=== PATIENT | male | born 1940 | race Caucasian/White ===

== ENCOUNTER → 2018-02-10 | Outpatient (REF) | payer OTHER ==
[2018-02-10 12:08] LABS: HEMATOCRIT 44.3 % (42.0-52.0); HEMOGLOBIN 14.9 g/dl (13.5-17.5); MEAN CORPUSCULAR HEMOGLOBIN 32.5 pg (27.0-33.0); MEAN CORPUSCULAR HGB CONC 33.6 g/dl (32.0-36.5); MEAN CORPUSCULAR VOLUME 96.5 fl (80.0-96.0); PLATELET COUNT, AUTOMATED 192 10^3/uL (150-450); RED BLOOD COUNT 4.59 10^6/uL (4.30-6.10); RED CELL DISTRIBUTION WIDTH 13.6 % (11.5-14.5); WHITE BLOOD COUNT 6.9 10^3/uL (4.0-10.0)
[2018-02-10 12:50] LABS: ALBUMIN 4.1 GM/DL (3.2-5.2); ALBUMIN/GLOBULIN RATIO 1.58 (1.00-1.93); ALKALINE PHOSPHATASE 104 U/L (45-117); ALT/SGPT 20 U/L (12-78); ANION GAP 6 MEQ/L (8-16); AST/SGOT 21 U/L (7-37); BILIRUBIN,TOTAL 0.5 MG/DL (0.2-1.0); BLOOD UREA NITROGEN 23 MG/DL (7-18); CARBON DIOXIDE LEVEL 29 MEQ/L (21-32); CHLORIDE LEVEL 105 MEQ/L (98-107); CHOLESTEROL LEVEL 170 MG/DL (<200); CHOLESTEROL RISK RATIO 4.722 (<5); CREATININE FOR GFR 0.95 MG/DL (0.70-1.30); FREE T4 1.12 NG/DL (0.76-1.46); GLOMERULAR FILTRATION RATE > 60.0 (>42); GLUCOSE, FASTING 104 MG/DL (70-100); HDL CHOLESTEROL 36 MG/DL (>40); LDL CHOLESTEROL 108 MG/DL (<100); NON-HDL-C 134 MG/DL; POTASSIUM SERUM 4.5 MEQ/L (3.5-5.1); SODIUM LEVEL 140 MEQ/L (136-145); TOTAL PROTEIN 6.7 GM/DL (6.4-8.2); TRIGLYCERIDES LEVEL 129 MG/DL (<150)
[2018-02-10 13:40] LABS: MAU/CREAT RATIO 58.5 MCG/MG (0.0-30.0)
== END ==
LOC: M SFHCPLAZ 08:29
DX: I10 Essential (primary) hypertension (principal); Z13.220 Encounter for screening for lipoid disorders
CPT/HCPCS: 84443

== ENCOUNTER → 2018-04-28 | Outpatient (CLI) | payer MEDICARE ==
--- NOTE | 2018-04-28 08:48 | REP ---
Clinical: Hypertension and chronic medical renal disease. Evaluate for renal artery stenosis. Technique: Chavez scale and color Doppler evaluation of the kidneys and renal vasculature using curved array transducer. Findings: The kidneys are essentially normal in contour size and echogenicity and reniform shape without hydronephrosis, nephrolithiasis, cystic or renal mass lesion. Right kidney measures 12.3 x 6.3 x 5.9 cm . Left kidney measures 12.5 x 5.6 x 5.9 cm with 3.5 cm peripelvic and 1.2 cm mid/upper pole simple cysts. Bladder wall is diffusely thickened and irregular suggesting the possibility of chronic outlet obstruction. Correlation with urology and cystoscopy may be warranted. Color Doppler evaluation of the renal vasculature is significantly limited due to interposed bowel gas and the bilateral renal arteries are incompletely evaluated. Renal velocities could only be obtained approaching the hilum and within the kidney. No definite sonographic evidence for renal arterial stenosis noted. Renal vein is patent. Right Kidney: Peak arterial velocity: 163.0 cm/sec . Renal aortic ratio: 2.2 . Resistive indices: 0.67 - 0.71 . Acceleration times: 0.03 - 0.04 . Left kidney: Peak arterial velocity: 131.0 cm/sec . Renal aortic ratio: 1.8 . Resistive indices: 0.63 - 0.66 . Acceleration times: 0.02 - 0.04 . Impression: 1. Kidneys appear relatively age-appropriate and without hydronephrosis. Two left renal cysts are identified as described above. 2. Bladder demonstrates irregular nodular wall thickening which may be related to chronic outlet obstruction. Correlation with urology and cystoscopy may be warranted. 3. Limited evaluation of the renal vasculature due to interposed bowel gas. No definite evidence to suggest renal arterial stenosis. Electronically Signed by Justin Marquis MD 04/28/2018 08:39 A
== END ==
LOC: M RAD 06:41
PROVIDERS: ATTEND Physician Assistant
DX: I70.1 Atherosclerosis of renal artery (principal); N28.1 Cyst of kidney, acquired; R93.41 Abnormal radiologic findings on diagnostic imaging of renal pelvis, ureter, or bladder

== ENCOUNTER → 2018-05-03 | Outpatient (REF) | payer MEDICARE ==
[2018-05-03 13:52] LABS: AMORPHOUS SEDIMENT SMALL (NEGATIVE); APPEARANCE, URINE CLEAR (CLEAR); BACTERIA, URINE AUTO NEGATIVE (NEGATIVE); BILIRUBIN, URINE AUTO NEGATIVE (NEGATIVE); BLOOD, URINE BLOOD NEGATIVE (NEGATIVE); COLOR, URINE AMBER (YELLOW); GLUCOSE, URINE (UA) AUTO NEGATIVE (NEGATIVE); GRANULAR CAST, URINE AUTO 1 /LPF; KETONE, URINE AUTO TRACE mg/dL (NEGATIVE); LEUKOCYTE ESTERASE, URINE AUTO NEGATIVE (NEGATIVE); MUCUS, URINE SMALL (NEGATIVE); NITRITE, URINE AUTO NEGATIVE (NEGATIVE); PROTEIN, URINE AUTO NEGATIVE (NEGATIVE); RBC, URINE AUTO 2 /HPF (0-3); SPECIFIC GRAVITY URINE AUTO 1.029 (1.002-1.035); SQUAMOUS EPITHELIAL CELL UR AU 0 /HPF (0-6); URIC ACID CRYSTALS SMALL; WBC, URINE AUTO 3 /HPF (0-3)
== END ==
LOC: M SMT 13:00
PROVIDERS: ATTEND Nurse Practitioner Women's Health
DX: N32.89 Other specified disorders of bladder (principal)

== ENCOUNTER → 2018-05-11 | Outpatient (CLI) | payer MEDICARE | LOC: M WUC 10:18 | PROVIDERS: ATTEND Nurse Practitioner Women's Health | DX: Z12.5 Encounter for screening for malignant neoplasm of prostate (principal) | CPT/HCPCS: 36415; G0103 ==

== ENCOUNTER → 2018-06-05 | Outpatient (REF) | payer BC | LOC: M SFHCPLAZ 16:56 | PROVIDERS: ATTEND Dermatology | DX: D48.3 Neoplasm of uncertain behavior of retroperitoneum (principal) ==

== ENCOUNTER → 2018-06-29 | Outpatient (REF) | payer MEDICARE, OTHER ==
[2018-06-29 14:05] LABS: CREATININE, URINE 72.1 MG/DL; MAU/CREAT RATIO 159.5 MCG/MG (0.0-30.0)
[2018-06-29 14:13] LABS: ALBUMIN 3.6 GM/DL (3.2-5.2); ALT/SGPT 26 U/L (12-78); BILIRUBIN,TOTAL 0.5 MG/DL (0.2-1.0); BLOOD UREA NITROGEN 21 MG/DL (7-18); CALCIUM LEVEL 8.5 MG/DL (8.8-10.2); CARBON DIOXIDE LEVEL 29 MEQ/L (21-32); CHLORIDE LEVEL 107 MEQ/L (98-107); CHOLESTEROL LEVEL 112 MG/DL (<200); CHOLESTEROL RISK RATIO 3.111 (<5); CREATININE FOR GFR 0.79 MG/DL (0.70-1.30); GLOMERULAR FILTRATION RATE > 60.0 (>42); GLUCOSE, FASTING 84 MG/DL (70-100); HDL CHOLESTEROL 36 MG/DL (>40); LDL CHOLESTEROL 63 MG/DL (<100); NON-HDL-C 76 MG/DL; POTASSIUM SERUM 4.5 MEQ/L (3.5-5.1); SODIUM LEVEL 141 MEQ/L (136-145); TOTAL PROTEIN 6.9 GM/DL (6.4-8.2); TRIGLYCERIDES LEVEL 65 MG/DL (<150)
== END ==
LOC: M SFHCPLAZ 09:03
PROVIDERS: ATTEND Physician Assistant
DX: E78.5 Hyperlipidemia, unspecified (principal); I10 Essential (primary) hypertension

== ENCOUNTER → 2018-07-31 | Outpatient (CLI) | payer MEDICARE ==
--- NOTE | 2018-07-31 11:23 | REP ---
REASON: Knee pain. AP and lateral views were obtained. Two views cannot rule out a fracture. A trauma series consists of four views. Two limited views show tricompartmental osteophytosis with medial and lateral femoral calcifications. Calcifications are also seen in the proximal medial collateral ligament region. IMPRESSION: Chronic changes as described above. Electronically Signed by Charan Hunter DO 07/31/2018 12:57 P
== END ==
LOC: M RAD 10:09
PROVIDERS: ATTEND Family Medicine
DX: M25.762 Osteophyte, left knee (principal); M25.562 Pain in left knee

== ENCOUNTER → 2018-09-30 | Outpatient (CLI) | payer MEDICARE ==
[~2018-09-30] MED LIST: AMLO10TA PO; ASPI81TA85 PO; ATOR1TAB21 PO; FINA5TAB2 PO; FLOM0.4C39 PO; GABA-1171 PO; NAPR-885 PO; OMEP-218 PO; VERA180T3 PO; VIAG100T PO; VOLT1GEL15 TOP
--- NOTE | 2018-09-30 16:33 | REP ---
Clinical: Shortness of breath. Technique: PA and lateral. Comparison: None. Findings: Very subtle nodular focus incompletely evaluated at the left base cannot be excluded. Remainder of lung winters are clear. No effusion. No pneumothorax. Mediastinum and cardiac silhouette normal. Skeletal structures intact. Impression: Cannot exclude very subtle left basilar nodular density. Consider chest CT for further investigation. Electronically Signed by Justin Marquis MD 09/30/2018 04:25 P
== END ==
LOC: M RAD 16:08
PROVIDERS: ATTEND Family Medicine
DX: R91.8 Other nonspecific abnormal finding of lung field (principal); R06.02 Shortness of breath

== ENCOUNTER 2018-10-05 13:50 | Observation (INO) | payer MEDICARE ==
[~2018-10-05] VITALS: Ht 175.3 cm; Wt 105.2 kg
[2018-10-05 14:21] LABS: BASO % 0.6 % (0.0-1.0); EOS # 0.2 10^3/uL (0.0-0.50); EOS % 3.1 % (0.0-3.0); HEMATOCRIT 43.3 % (42.0-52.0); HEMOGLOBIN 14.5 g/dl (13.5-17.5); LYMPH # 1.8 10^3/uL (1.5-4.5); LYMPH % 28.5 % (24.0-44.0); MEAN CORPUSCULAR HEMOGLOBIN 32.7 pg (27.0-33.0); MEAN CORPUSCULAR HGB CONC 33.5 g/dl (32.0-36.5); MEAN CORPUSCULAR VOLUME 97.7 fl (80.0-96.0); MONO # 0.5 10^3/uL (0.0-0.8); MONO % 7.8 % (0.0-5.0); NEUTROPHILS # 3.8 10^3/uL (1.8-7.7); NEUTROPHILS % 59.7 % (36.0-66.0); PLATELET COUNT, AUTOMATED 168 10^3/uL (150-450); RED BLOOD COUNT 4.43 10^6/uL (4.30-6.10); WHITE BLOOD COUNT 6.4 10^3/uL (4.0-10.0)
[2018-10-05 14:52] LABS: ALBUMIN 3.9 GM/DL (3.2-5.2); ALT/SGPT 25 U/L (12-78); BILIRUBIN,DIRECT 0.2 MG/DL (0.0-0.2); BILIRUBIN,TOTAL 0.5 MG/DL (0.2-1.0); BLOOD UREA NITROGEN 21 MG/DL (7-18); CALCIUM LEVEL 8.9 MG/DL (8.8-10.2); CARBON DIOXIDE LEVEL 31 MEQ/L (21-32); CHLORIDE LEVEL 108 MEQ/L (98-107); CK-MB VALUE MASS 2.9 NG/ML (<3.6); CPK CREATINE PHOSPHOKINASE 125 U/L (39-308); CREATININE FOR GFR 0.86 MG/DL (0.70-1.30); GLOMERULAR FILTRATION RATE > 60.0 (>42); GLUCOSE, FASTING 95 MG/DL (70-100); LIPASE 106 U/L (73-393); MB/CK RELATIVE INDEX 2.32 (< OR =4); POTASSIUM SERUM 4.1 MEQ/L (3.5-5.1); SODIUM LEVEL 143 MEQ/L (136-145); THYROID STIMULATING HORMONE 0.659 uIU/ML (0.358-3.740); TOTAL PROTEIN 6.7 GM/DL (6.4-8.2); TROPONIN I < 0.02 NG/ML (< 0.10)
[2018-10-05] MEDS ORDERED: ISOVUE-370 76% 100ML VIAL (Q9967) As Ordered ONE (15:23)
[2018-10-05] MEDS ORDERED: ONDANSETRON 4MG/2ML VIAL (J2405) IV ONE (15:30)
--- NOTE | 2018-10-05 15:39 | REP ---
CHEST, PORTABLE: AP portable view of the chest is performed and compared with a prior study of 09/29/2018. There is poor ventilation with mild bibasilar linear fibroatelectatic change. No new infiltrate is seen. Cardiomediastinal silhouette appears magnified with the cardiac silhouette appearing prominent likely due to technical factors. There is calcification of the thoracic aorta. The mediastinal silhouette is unchanged. IMPRESSION: Mild stable bibasilar fibroatelectatic change without acute infiltrate. Electronically Signed by Abdelrahman Chavez MD 10/06/2018 09:26 A
[2018-10-05] MEDS: MORPHINE 2 MG/ML 1ML SYRINGE (J2270) IV PRN ×2 (16:10→17:34)
--- NOTE | 2018-10-05 16:39 | REP ---
CT ANGIO CHEST: TECHNIQUE: Axial contrast enhanced images from the thoracic inlet to the upper abdomen using 100 mL Isovue 370 intravenous contrast material with multiplanar reformations. There is no CT evidence of pulmonary embolism. There is no thoracic aortic aneurysm or dissection with mild atherosclerotic calcifications noted. The heart is mildly enlarged. There is no mediastinal, hilar or chest wall lymphadenopathy. There is no pleural or pericardial effusion. There are mild bibasilar fibroatelectatic changes. There are degenerative changes of the spine. Prominent left lobe of the thyroid is again seen unchanged since prior CT of cervical spine in 2010. IMPRESSION: No CT evidence of pulmonary embolism or aortic dissection. Mild cardiomegaly. Mild bibasilar fibroatelectatic change. Electronically Signed by Abdelrahman Chavez MD 10/06/2018 09:31 A
--- NOTE | 2018-10-05 17:09 | REP ---
HISTORY: Pain and swelling. TECHNIQUE: Multiple ultrasonographic images of the deep venous structures of the bilateral thighs were obtained from the common femoral vein to the popliteal vein along with Doppler interrogation and color flow Doppler images. FINDINGS: There is no abnormal echogenic material seen within any of the visualized deep venous structures that would suggest acute thrombosis. Coaptation is unremarkable throughout. Doppler interrogation shows an expected response to respiratory variability and augmentation. The color flow images show what appears to be a normal vascular pattern throughout. IMPRESSION: There is no ultrasonographic evidence of deep venous thrombosis involving any of the visualized deep venous structures of the bilateral thighs, as described above. Electronically Signed by Charan Hunter DO 10/06/2018 10:29 A
[2018-10-05] MEDS ORDERED: VIAG100T PO (17:19)
[2018-10-05] MEDS ORDERED: NAPR-885 PO (17:19)
[2018-10-05] MEDS ORDERED: ASPI81TA85 PO (17:19)
[2018-10-05] MEDS ORDERED: FLOM0.4C39 PO (17:19)
[2018-10-05] MEDS ORDERED: GABA-1171 PO (17:19)
[2018-10-05] MEDS ORDERED: FINA5TAB2 PO (17:19)
[2018-10-05] MEDS ORDERED: OMEP-218 PO (17:19)
[2018-10-05] MEDS ORDERED: VERA180T3 PO (17:19)
[2018-10-05] MEDS ORDERED: ATOR1TAB21 PO (17:19)
[2018-10-05] MEDS ORDERED: VOLT1GEL15 TOP (17:19)
[2018-10-05] MEDS ORDERED: ACETAMINOPHEN TAB 650MG DOSE (2X325MG) PO PRN (18:15)
[2018-10-05] MEDS ORDERED: ONDANSETRON 4MG/2ML VIAL (J2405) IV PRN (18:15)
[2018-10-05] MEDS ORDERED: LIDOCAINE 5% (LIDODERM) PATCH TD ONE (18:15)
--- NOTE | 2018-10-05 18:31 | HPEPDOC ---
General Date of Admission Oct 05, 2018 at 13:51 Date of Service: Oct 05, 2018 Chief Complaint The patient is a 78-year-old male admitted with a reason for visit of Dyspnea. History of Present Illness 78-year-old male with past medical history of hypertension, GERD, BPH, erectile dysfunction, dyslipidemia presented to the ER with a chief complaint of left upper back pain radiating to the chest with associated shortness of breath. The patient states that his pain has been persistent over the last few weeks, and is associated with shortness of breath when he takes a deep breath. He denies any lightheadedness, dizziness, palpitations, abdominal pain, or any nausea/vomiting/diarrhea. He also denies any history of coronary artery disease. He does state that he [place], and his pain has been evident ever since. In the ER, an EKG revealed no acute ST changes. Initial troponin markers negative. A chest x-ray and CT angiogram of the chest revealed no acute findings. The patient is noted to be breathing 99% on room air, however does appear short of breath when conversing. He will be admitted to the hospitalist service for further evaluation. Home Medications Scheduled Aspirin (Aspir 81) 81 Mg Tablet.dr, 81 MG PO DAILY, (Reported) Atorvastatin Calcium (Atorvastatin Calcium) 20 Mg Tablet, 20 MG PO DAILY, (Reported) Diclofenac Sodium (Voltaren) 100 Gm Gel..gram., 2 GRAM TOP BID, (Reported) APPLY TO LEFT KNEE Finasteride (Finasteride) 5 Mg Tablet, 5 MG PO DAILY, (Reported) Gabapentin (Gabapentin) 100 Mg Capsule, 100 MG PO TID, (Reported) Omeprazole (Omeprazole) 20 Mg Capsule.dr, 20 MG PO DAILY, (Reported) Tamsulosin HCl (Flomax) 0.4 Mg Capsule, 0.4 MG PO DAILY, (Reported) Verapamil HCl (Verapamil ER) 180 Mg Tablet.er, 180 MG PO DAILY, (Reported) Scheduled PRN Naproxen (Naproxen) 500 Mg Tablet, 500 MG PO Q12H PRN for PAIN, (Reported) Sildenafil Citrate (Viagra) 100 Mg Tablet, 100 MG PO for ERECTILE DYSFUNCTION, (Reported) Allergies Coded Allergies: Sulfa (Sulfonamide Antibiotics) (Verified Allergy, Mild, rash, 10/05/18) Past Medical History Medical History As noted in HPI Surgical History LEFT KNEE REPLACED 2017 CARPAL TUNNEL BILATERAL 2000 DISC INFUSION 2002 ROTATOR CUFF RIGHT 2000 CYSTOSCOPY 04/2018 MOHS ON LEFT HELIX 2016 Social History * Smoker: Denies Alcohol: occationally Drugs: marijuana (occasionally smokes marijuana a few times a week) Review of Systems Other systems 10 point review of systems negative unless otherwise specified in HPI. Physical Examination General Exam: Positive: Alert, Cooperative, No Acute Distress ENT Exam: Positive: Atraumatic, Mucous membr. moist/pink Neck Exam: Negative: JVD Chest Exam: Positive: Clear to auscultation, Normal air movement Heart Exam: Positive: Rate Normal, Normal S1, Normal S2 Abdomen Exam: Positive: Soft; Negative: Tenderness Extremity Exam: Negative: Tenderness, Swelling Psych Exam: Positive: Oriented x 3 Other physical findings Left upper back noted to be tender to palpation in the musculoskeletal region medial to the scapula in the trapezius muscle area. Vital Signs Vital Signs Date Time Temp Pulse Resp B/P (MAP) Pulse Ox O2 Delivery O2 Flow Rate FiO2 10/05/18 17:45 62 18 173/82 (112) 95 Room Air 10/05/18 13:51 96.3 Laboratory Data Labs 24H Laboratory Tests 2 10/05/18 13:55: Immature Granulocyte % (Auto) 0.3, White Blood Count 6.4, Red Blood Count 4.43, Hemoglobin 14.5, Hematocrit 43.3, Mean Corpuscular Volume 97.7H, Mean Corpuscular Hemoglobin 32.7, Mean Corpuscular Hemoglobin Concent 33.5, Red Cell Distribution Width 14.2, Platelet Count 168, Neutrophils (%) (Auto) 59.7, Lymphocytes (%) (Auto) 28.5, Monocytes (%) (Auto) 7.8H, Eosinophils (%) (Auto) 3.1H, Basophils (%) (Auto) 0.6, Neutrophils # (Auto) 3.8, Lymphocytes # (Auto) 1.8, Monocytes # (Auto) 0.5, Eosinophils # (Auto) 0.2, Basophils # (Auto) 0.0, Nucleated Red Blood Cells % (auto) 0.0, Anion Gap 4L, Glomerular Filtration Rate > 60.0, Calcium Level 8.9, Aspartate Amino Transf (AST/SGOT) 24, Alanine Aminotransferase (ALT/SGPT) 25, Alkaline Phosphatase 89, Total Bilirubin 0.5, Direct Bilirubin 0.2, Total Creatine Kinase 125, Creatine Kinase MB 2.9, Creatine Kinase MB Relative Index 2.32, Troponin I < 0.02, Total Protein 6.7, Albumin 3.9, Albumin/Globulin Ratio 1.39, Lipase 106, Thyroid Stimulating Hormone (TSH) 0.659, Free Thyroxine 1.20 10/05/18 17:47: POC pH (Misc Panel) 7.369, POC Base Excess (Misc Panel) 2.0, POC Saturated Percent O2 (Misc) 93L, POC pO2 (Misc Panel) 70.0L, POC pCO2 (Misc Panel) 47.2H, POC HCO3 (Misc Panel) 27.3H, POC Total CO2 (Misc Panel) 29.0H CBC/BMP Laboratory Tests 10/05/18 13:55 Red Blood Count 4.43, Mean Corpuscular Volume 97.7 H, Mean Corpuscular Hemoglobin 32.7, Mean Corpuscular Hemoglobin Concent 33.5, Red Cell Distribution Width 14.2, Neutrophils (%) (Auto) 59.7, Lymphocytes (%) (Auto) 28.5, Monocytes (%) (Auto) 7.8 H, Eosinophils (%) (Auto) 3.1 H, Basophils (%) (Auto) 0.6, Neutrophils # (Auto) 3.8, Lymphocytes # (Auto) 1.8, Monocytes # (Auto) 0.5, Eosinophils # (Auto) 0.2, Basophils # (Auto) 0.0 Plan / VTE VTE Prophylaxis Ordered?: Yes Plan Plan Shortness of Breath possibly 2/2 Musculoskeletal Chest Pain CXR and CTA Chest negative EKG with no acute ST changes, initial troponin negative, we will serially monitor cardiac markers 2D ECHO ordered Monitor on Telemetry Lidocaine patch ordered for the upper back PT ordered for functional optimization We will cont to monitor Dyslipidemia Continue statin History of CVA Aspirin and statin BPH Finasteride, Flomax GERD Continue PPI DVT prophylaxis Lovenox subcutaneous INDIGO MARIE MD Oct 05, 2018 18:31
[2018-10-05] MEDS: GABAPENTIN 100 MG CAP PO SCH (20:29)
[2018-10-05 21:00] LABS: CK-MB VALUE MASS 2.4 NG/ML (<3.6); CPK CREATINE PHOSPHOKINASE 105 U/L (39-308); MB/CK RELATIVE INDEX 2.29 (< OR =4); TROPONIN I < 0.02 NG/ML (< 0.10)
[2018-10-06] VITALS (10 sets, daily range): BP systolic 135–145; BP diastolic 66–76; O2SAT 91–97
[2018-10-06 06:55] LABS: HEMATOCRIT 41.5 % (42.0-52.0); HEMOGLOBIN 13.3 g/dl (13.5-17.5); MEAN CORPUSCULAR HEMOGLOBIN 31.6 pg (27.0-33.0); MEAN CORPUSCULAR VOLUME 98.6 fl (80.0-96.0); PLATELET COUNT, AUTOMATED 168 10^3/uL (150-450); RED BLOOD COUNT 4.21 10^6/uL (4.30-6.10); WHITE BLOOD COUNT 9.4 10^3/uL (4.0-10.0)
[2018-10-06] MEDS ORDERED: **NOTE PATIENT COMMENT** MISC XX SCH (07:00)
[2018-10-06 07:22] LABS: BLOOD UREA NITROGEN 21 MG/DL (7-18); CALCIUM LEVEL 8.7 MG/DL (8.8-10.2); CARBON DIOXIDE LEVEL 33 MEQ/L (21-32); CHLORIDE LEVEL 106 MEQ/L (98-107); CK-MB VALUE MASS 2.3 NG/ML (<3.6); CPK CREATINE PHOSPHOKINASE 68 U/L (39-308); CREATININE FOR GFR 0.87 MG/DL (0.70-1.30); GLOMERULAR FILTRATION RATE > 60.0 (>42); GLUCOSE, FASTING 95 MG/DL (70-100); MAGNESIUM LEVEL 2.2 MG/DL (1.8-2.4); MB/CK RELATIVE INDEX 3.38 (< OR =4); POTASSIUM SERUM 4.4 MEQ/L (3.5-5.1); SODIUM LEVEL 141 MEQ/L (136-145); TROPONIN I < 0.02 NG/ML (< 0.10)
[2018-10-06] MEDS: ASPIRIN 81 MG ENTERIC TAB PO SCH (07:44)
[2018-10-06] MEDS: ATORVASTATIN 20 MG TAB PO SCH (07:44)
[2018-10-06] MEDS: TAMSULOSIN 0.4 MG CAP PO SCH (07:44)
[2018-10-06] MEDS: GABAPENTIN 100 MG CAP PO SCH ×3 (07:44→21:00)
[2018-10-06] MEDS: FINASTERIDE 5 MG TAB PO SCH (07:45)
[2018-10-06] MEDS: ENOXAPARIN 40 MG/0.4 ML SYRINGE (J1650) SC SCH (07:45)
[2018-10-06] MEDS: OMEPRAZOLE 20 MG CAP PO SCH (07:45)
[2018-10-06] MEDS: oxyCODONE 5MG TAB PO PRN (12:16)
[2018-10-06] MEDS: VERAPAMIL 120 MG SR TAB PO SCH (13:44)
[2018-10-06 16:24] LABS: CK-MB VALUE MASS 2.7 NG/ML (<3.6); CPK CREATINE PHOSPHOKINASE 74 U/L (39-308); MB/CK RELATIVE INDEX 3.65 (< OR =4); TROPONIN I < 0.02 NG/ML (< 0.10)
--- NOTE | 2018-10-06 21:01 | ECHO ---
DATE OF PROCEDURE: 10/06/2018 DATE OF : 1940 AGE: 78 REFERRING PROVIDER: Dr. Jasen Carvajal PATIENT LOCATION: Emergency Department (ED)/Emergency Room REASON FOR THE STUDY: Chest pain. 2D MEASUREMENTS: IVS: 1.2 cm LV: 4.7 cm LVPW: 1.2 cm LA: 3.7 cm Aorta: 3.9 cm RV: 4.0 cm DOPPLER MEASUREMENTS: Peak velocity across the aortic valve: 1.5 m/s Peak velocity across the LVOT: 0.94 m/s Peak gradient across the aortic valve: 9 mmHg Mitral E: 0.49, Mitral A: 0.70 with a ratio of 0.7 Maximum tricuspid valve velocity: 3.0 m/s 2D COMMENTS: 1. Normal left ventricular size, wall thickness, and normal global left ventricular systolic function. The estimated left ventricular systolic ejection fraction is 60-65%. 2. Normal left atrium. Normal right atrium and right ventricle. 3. The atrial septum appeared to be normal without evidence of defect or shunt. 4. Normal aortic root. 5. A trace to small pericardial effusion was noted around the heart, no evidence of cardiac tamponade. 6. Mildly calcified aortic valve with normal leaflet excursion. Mildly calcified mitral annulus with normal anterior mitral valve leaflet motion. Normal tricuspid valve and pulmonic valve. The proximal pulmonary artery branches were not well visualized. 7. The inferior vena cava appeared to be normal in size subjectively. DOPPLER: It detects trace mitral regurgitation, mild tricuspid regurgitation and mild pulmonic regurgitation. The calculated pulmonary artery systolic pressure varies between 30-35 mmHg. Abnormal relaxation pattern was noted across the mitral valve leaflets as well as the mitral valve annulus consistent with features of grade 1 left ventricular diastolic dysfunction. IMPRESSION: 1. Normal global left ventricular systolic function. There were some features of grade 1 left ventricular diastolic dysfunction manifested by abnormal relaxation. 2. Aortic valve sclerosis with trivial aortic stenosis but no aortic regurgitation. 3. Mitral annulus calcification with trace mitral regurgitation. 4. Mild tricuspid regurgitation with mild pulmonary hypertension. 5. Mild pulmonic regurgitation. 6. Trace to small pericardial effusion noted, no evidence of cardiac tamponade. MTDD
[2018-10-07] VITALS (13 sets, daily range): BP systolic 122–184; BP diastolic 65–100; O2SAT 91–98
[2018-10-07 05:54] LABS: HEMATOCRIT 42.5 % (42.0-52.0); HEMOGLOBIN 13.6 g/dl (13.5-17.5); MEAN CORPUSCULAR HEMOGLOBIN 32.5 pg (27.0-33.0); MEAN CORPUSCULAR VOLUME 101.4 fl (80.0-96.0); PLATELET COUNT, AUTOMATED 163 10^3/uL (150-450); RED BLOOD COUNT 4.19 10^6/uL (4.30-6.10); WHITE BLOOD COUNT 8.2 10^3/uL (4.0-10.0)
[2018-10-07 06:19] LABS: BLOOD UREA NITROGEN 19 MG/DL (7-18); CALCIUM LEVEL 8.5 MG/DL (8.8-10.2); CARBON DIOXIDE LEVEL 34 MEQ/L (21-32); CHLORIDE LEVEL 106 MEQ/L (98-107); GLOMERULAR FILTRATION RATE > 60.0 (>42); GLUCOSE, FASTING 101 MG/DL (70-100); POTASSIUM SERUM 4.3 MEQ/L (3.5-5.1); SODIUM LEVEL 140 MEQ/L (136-145)
--- NOTE | 2018-10-07 07:44 | ECGEPIP ---
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
[2018-10-07] MEDS: FINASTERIDE 5 MG TAB PO SCH (08:10)
[2018-10-07] MEDS: TAMSULOSIN 0.4 MG CAP PO SCH (08:10)
[2018-10-07] MEDS: GABAPENTIN 100 MG CAP PO SCH (08:11)
[2018-10-07] MEDS: ASPIRIN 81 MG ENTERIC TAB PO SCH (08:11)
[2018-10-07] MEDS: ATORVASTATIN 20 MG TAB PO SCH (08:11)
[2018-10-07] MEDS: OMEPRAZOLE 20 MG CAP PO SCH (08:11)
[2018-10-07] MEDS: ENOXAPARIN 40 MG/0.4 ML SYRINGE (J1650) SC SCH (08:12)
[2018-10-07] MEDS: VERAPAMIL 120 MG SR TAB PO SCH (09:00)
[2018-10-07] MEDS: oxyCODONE 5MG TAB PO PRN (09:13)
--- NOTE | 2018-10-07 10:23 | ECGEPIP ---
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
--- NOTE | 2018-10-07 10:46 | IPNPDOC ---
Text Note Date of Service The patient was seen on 10/06/18. NOTE Mr. Johnson is a 78-year-old male admitted with chest pain. Chest pain was atypical in that it was primarily to his left upper back radiating around to the front of the chest. It was accompanied by shortness of breath. He reports it had onset a week or 2 ago when he attempted to lift/move a heavy picnic table at a park. He is also currently complaining of headache. Other additional interest, the patient has been making use of large doses of NSAIDs inclusive of Aleve and diclofenac. Physical exam: General: The patient is seen and examined in the emergency room. is at be dside. HENT: Neck is moderately supple, he does not have any adenopathy or thyromegaly, oral mucosa is moist Cardiovascular: Regular rate and rhythm, no appreciable murmur Respiratory: Clear to auscultation, patient is able to speak multiple sentences, he does have mild pain to chest wall palpation. Abdomen: Moderate central obesity, relative to his overall body habitus, otherwise benign to exam. Extremities: No peripheral edema, pedal pulses are palpable Review of available diagnostic data showed no remarkable changes or infiltrates. His chest x-ray. There are no findings consistent with DVT to either lower extremity. CT enter the chest showed no sign of pulmonary embolus or other acute findings such as pleural effusion or consolidation. Echocardiogram eval is pending. Serial cardiac enzymes in the form of a troponin are negative at less than 0.02. ASSESSMENT/PLAN: 1. Chest pain. Overall, this appears to be noncardiac, but rather musculoskeletal. He has otherwise ruled out for an acute cardiac event or pulmonary embolus. The patient has been making use of large amounts of NSAIDs inclusive of Aleve and diclofenac. The patient has been advised that these are of high risk for him to use with the greatest complication being potential GI bleed. The patient states that he usually uses Percocet, but he can't take Tylenol. I am giving the patient immediate release oxycodone for pain management. 2. Hypertension. Blood pressures have been uncontrolled. Systolic blood pressures have ranged from 105 - 207. This field underwriter has restored the patient's antihypertensive in the form of verapamil. This patient was placed on observation status. We will monitor him overnight for improved symptom control. VS,Fishbone, I+O VS, Fishbone, I+O Laboratory Tests 10/07/18 05:28 Red Blood Count 4.19 L, Mean Corpuscular Volume 101.4 H, Mean Corpuscular Hemoglobin 32.5, Mean Corpuscular Hemoglobin Concent 32.0, Red Cell Distribution Width 14.1, Calcium Level 8.5 L Vital Signs Date Time Temp Pulse Resp B/P (MAP) Pulse Ox O2 Delivery O2 Flow Rate FiO2 10/07/18 09:13 18 10/07/18 08:00 99.0 50 122/77 (92) 93 1.0 10/07/18 02:00 Nasal Cannula I&O- Last 24 Hours up to 6 AM 10/07/18 06:00 Intake Total 780 ml Output Total 575 ml Balance 205 ml LILLY ANTONY MD Oct 07, 2018 10:46
--- NOTE | 2018-10-07 12:09 | REP ---
HISTORY: Light headed. Echogenic material is seen along the carotid arterial andrews. Some of this echogenic material casts an acoustic shadow consistent with calcific deposition. Right Left CCA systolic 81.6 cm/s 93.8 cm/s CCA diastolic 24.6 cm/s 13.7 cm/s ICA systolic 195.0 cm/s 70.1 cm/s ICA diastolic 58.2 cm/s 24.5 cm/s ICA/CCA ratio 2.71 1.03 Spectral waveform analysis shows left internal carotid arterial spectral broadening. There is antegrade flow seen in both vertebral arteries. IMPRESSION: According to the NASCET consensus criteria there is a 50 to 69% stenosis of the right internal carotid artery. There is less than 50% stenosis of the left internal carotid artery. Electronically Signed by Charan Hunter DO 10/07/2018 12:58 P
[2018-10-07] MEDS ORDERED: AMLO10TA PO (14:10)
--- NOTE | 2018-10-07 14:17 | DS.PDOC ---
Discharge Summary General Date of Admission Oct 05, 2018 at 13:51 Date of Discharge 10/07/18 Discharge Summary PROCEDURES PERFORMED DURING STAY: None. ADMITTING/DISCHARGE DIAGNOSES: Shortness of Breath 2/2 Musculoskeletal Chest/Back Pain Diastolic congestive heart failure Dyslipidemia History of CVA History of BPH GERD COMPLICATIONS/CHIEF COMPLAINT: Dyspnea. HISTORY OF PRESENT ILLNESS: . 78-year-old male with past medical history of hypertension, GERD, BPH, erectile dysfunction, dyslipidemia presented to the ER with a chief complaint of left upper back pain radiating to the chest with associated shortness of breath. The patient states that his pain has been persistent over the last few weeks, and is associated with shortness of breath when he takes a deep breath. He denies any lightheadedness, dizziness, palpitations, abdominal pain, or any nausea/vomiting/diarrhea. He also denies any history of coronary artery disease. He does state that [place], and his pain has been evident ever since. In the ER, an EKG revealed no acute ST changes. Initial troponin markers negative. A chest x-ray and CT angiogram of the chest revealed no acute findings. The patient is noted to be breathing 99% on room air, however does appear short of breath when conversing. He will be admitted to the hospitalist service for further evaluation. During hospitalization cardiac markers remained negative, and the patient had a 2-D echocardiogram which revealed grade 1 diastolic dysfunction but was otherwise relatively unremarkable. An ultrasound of the carotid arteries is listed below. The patient was noted to have bradycardia with heart rate in the 50s-60s, but was asymptomatic. The patient's verapamil has been discontinued, and Norvasc has been added for better blood pressure control. He was seen and cleared by physical therapy. The patient does endorse that he recently had pulmonary function testing done as an outpatient, and he has been advised to follow-up with these results with his primary care doctor. Otherwise, the patient states that he is feeling better, and denies any other acute complaints at this time. The patient has been advised to follow-up with his primary care physician within 7 days. He has been counseled to return to the ER for any acute emergencies. DISCHARGE MEDICATIONS: Please see below. ALLERGIES: Please see below. PHYSICAL EXAMINATION ON DISCHARGE: VITAL SIGNS: Please see below. General Exam: Positive: Alert, Cooperative, No Acute Distress ENT Exam: Positive: Atraumatic, Mucous membr. moist/pink Neck Exam: Negative: JVD Chest Exam: Positive: Clear to auscultation, Normal air movement Heart Exam: Positive: Rate Normal, Normal S1, Normal S2 Abdomen Exam: Positive: Soft; Negative: Tenderness Extremity Exam: Negative: Tenderness, Swelling Psych Exam: Positive: Oriented x 3 LABORATORY DATA: Please see below. IMAGING: CHEST, PORTABLE: AP portable view of the chest is performed and compared with a prior study of 09/29/2018. There is poor ventilation with mild bibasilar linear fibroatelectatic change. No new infiltrate is seen. Cardiomediastinal silhouette appears magnified with the cardiac silhouette appearing prominent likely due to technical factors. There is calcification of the thoracic aorta. The mediastinal silhouette is unchanged. IMPRESSION: Mild stable bibasilar fibroatelectatic change without acute infiltrate. HISTORY: Pain and swelling. TECHNIQUE: Multiple ultrasonographic images of the deep venous structures of the bilateral thighs were obtained from the common femoral vein to the popliteal vein along with Doppler interrogation and color flow Doppler images. FINDINGS: There is no abnormal echogenic material seen within any of the visualized deep venous structures that would suggest acute thrombosis. Coaptation is unremarkable throughout. Doppler interrogation shows an expected response to respiratory variability and augmentation. The color flow images show what appears to be a normal vascular pattern throughout. IMPRESSION: There is no ultrasonographic evidence of deep venous thrombosis involving any of the visualized deep venous structures of the bilateral thighs, as described above. CT ANGIO CHEST: TECHNIQUE: Axial contrast enhanced images from the thoracic inlet to the upper abdomen using 100 mL Isovue 370 intravenous contrast material with multiplanar reformations. There is no CT evidence of pulmonary embolism. There is no thoracic aortic aneurysm or dissection with mild atherosclerotic calcifications noted. The heart is mildly enlarged. There is no mediastinal, hilar or chest wall lymphadenopathy. There is no pleural or pericardial effusion. There are mild bibasilar fibroatelectatic changes. There are degenerative changes of the spine. Prominent left lobe of the thyroid is again seen unchanged since prior CT of cervical spine in 2010. IMPRESSION: No CT evidence of pulmonary embolism or aortic dissection. Mild cardiomegaly. Mild bibasilar fibroatelectatic change. HISTORY: Light headed. Echogenic material is seen along the carotid arterial andrews. Some of this echogenic material casts an acoustic shadow consistent with calcific deposition. Right Left CCA systolic 81.6 cm/s 93.8 cm/s CCA diastolic 24.6 cm/s 13.7 cm/s ICA systolic 195.0 cm/s 70.1 cm/s ICA diastolic 58.2 cm/s 24.5 cm/s ICA/CCA ratio 2.71 1.03 Spectral waveform analysis shows left internal carotid arterial spectral broadening. There is antegrade flow seen in both vertebral arteries. IMPRESSION: According to the NASCET consensus criteria there is a 50 to 69% stenosis of the right internal carotid artery. There is less than 50% stenosis of the left internal carotid artery. DATE OF PROCEDURE: 10/06/2018 DATE OF : 1940 AGE: 78 REFERRING PROVIDER: Dr. Jasen Marie PATIENT LOCATION: Emergency Department (ED)/Emergency Room REASON FOR THE STUDY: Chest pain. 2D MEASUREMENTS: IVS: 1.2 cm LV: 4.7 cm LVPW: 1.2 cm LA: 3.7 cm Aorta: 3.9 cm RV: 4.0 cm DOPPLER MEASUREMENTS: Peak velocity across the aortic valve: 1.5 m/s Peak velocity across the LVOT: 0.94 m/s Peak gradient across the aortic valve: 9 mmHg Mitral E: 0.49, Mitral A: 0.70 with a ratio of 0.7 Maximum tricuspid valve velocity: 3.0 m/s 2D COMMENTS: 1. Normal left ventricular size, wall thickness, and normal global left ventricular systolic function. The estimated left ventricular systolic ejection fraction is 60-65%. 2. Normal left atrium. Normal right atrium and right ventricle. 3. The atrial septum appeared to be normal without evidence of defect or shunt. 4. Normal aortic root. 5. A trace to small pericardial effusion was noted around the heart, no evidence of cardiac tamponade. 6. Mildly calcified aortic valve with normal leaflet excursion. Mildly calcified mitral annulus with normal anterior mitral valve leaflet motion. Normal tricuspid valve and pulmonic valve. The proximal pulmonary artery branches were not well visualized. 7. The inferior vena cava appeared to be normal in size subjectively. DOPPLER: It detects trace mitral regurgitation, mild tricuspid regurgitation and mild pulmonic regurgitation. The calculated pulmonary artery systolic pressure varies between 30-35 mmHg. Abnormal relaxation pattern was noted across the mitral valve leaflets as well as the mitral valve annulus consistent with features of grade 1 left ventricular diastolic dysfunction. IMPRESSION: 1. Normal global left ventricular systolic function. There were some features of grade 1 left ventricular diastolic dysfunction manifested by abnormal relaxation. 2. Aortic valve sclerosis with trivial aortic stenosis but no aortic regurgitation. 3. Mitral annulus calcification with trace mitral regurgitation. 4. Mild tricuspid regurgitation with mild pulmonary hypertension. 5. Mild pulmonic regurgitation. PROGNOSIS: Fair ACTIVITY: As tolerated. DIET: 2 g low sodium diet DISCHARGE PLAN: DISPOSITION: . Home DISCHARGE INSTRUCTIONS: The patient has been advised to follow-up with his primary care physician within 7 days. He has been counseled to return to the ER for any acute emergencies. DISCHARGE CONDITION: Stable. TIME SPENT ON DISCHARGE: Greater than 30 minutes. Vital Signs/I&Os Vital Signs Date Time Temp Pulse Resp B/P (MAP) Pulse Ox O2 Delivery O2 Flow Rate FiO2 10/07/18 12:11 69 174/100 (124) 10/07/18 12:00 98.0 18 90 10/07/18 08:00 1.0 10/07/18 02:00 Nasal Cannula I&O- Last 24 Hours up to 6 AM 10/07/18 06:00 Intake Total 780 ml Output Total 575 ml Balance 205 ml Laboratory Data Labs 24H Laboratory Tests 2 10/06/18 15:19: Total Creatine Kinase 74, Creatine Kinase MB 2.7, Creatine Kinase MB Relative Index 3.65, Troponin I < 0.02 10/07/18 05:28: Nucleated Red Blood Cells % (auto) 0.0, Anion Gap 0L, Glomerular Filtration Rate > 60.0, Blood Urea Nitrogen 19H, Creatinine 0.80, Sodium Level 140, Potassium Level 4.3, Chloride Level 106, Carbon Dioxide Level 34H, Calcium Level 8.5L, Magnesium Level 2.0 CBC/BMP Laboratory Tests 10/07/18 05:28 Red Blood Count 4.19 L, Mean Corpuscular Volume 101.4 H, Mean Corpuscular Hemoglobin 32.5, Mean Corpuscular Hemoglobin Concent 32.0, Red Cell Distribution Width 14.1, Calcium Level 8.5 L Discharge Medications Scheduled Amlodipine Besylate (Norvasc) 10 Mg Tablet, 1 TAB PO DAILY Aspirin (Aspir 81) 81 Mg Tablet.dr, 81 MG PO DAILY, (Reported) Atorvastatin Calcium (Atorvastatin Calcium) 20 Mg Tablet, 20 MG PO DAILY, (Reported) Diclofenac Sodium (Voltaren) 100 Gm Gel..gram., 2 GRAM TOP BID, (Reported) APPLY TO LEFT KNEE Finasteride (Finasteride) 5 Mg Tablet, 5 MG PO DAILY, (Reported) Gabapentin (Gabapentin) 100 Mg Capsule, 100 MG PO TID, (Reported) Omeprazole (Omeprazole) 20 Mg Capsule.dr, 20 MG PO DAILY, (Reported) Tamsulosin HCl (Flomax) 0.4 Mg Capsule, 0.4 MG PO DAILY, (Reported) Scheduled PRN Sildenafil Citrate (Viagra) 100 Mg Tablet, 100 MG PO for ERECTILE DYSFUNCTION, (Reported) Allergies Coded Allergies: Sulfa (Sulfonamide Antibiotics) (Verified Allergy, Mild, rash, 10/05/18) JASEN MARIE MD Oct 07, 2018 14:17
[2018-10-07] MEDS ORDERED: amLODIPine 10 MG TAB PO ONE (15:00)
== END 2018-10-07 15:00 | disposition home or self-care (01) ==
LOC: M ED 13:50 → M ED INP 13:51 → M PCU 10-06 15:34
PROVIDERS: ADMIT Internal Medicine; ATTEND Internal Medicine
DX: R06.02 Shortness of breath (principal); R07.89 Other chest pain; M54.9 Dorsalgia, unspecified; I50.30 Unspecified diastolic (congestive) heart failure; K21.9 Gastro-esophageal reflux disease without esophagitis; Z86.73 Personal history of transient ischemic attack (TIA), and cerebral infarction without residual deficits; Z87.438 Personal history of other diseases of male genital organs; Z79.82 Long term (current) use of aspirin; Z79.899 Other long term (current) drug therapy; Z88.2 Allergy status to sulfonamides
CPT/HCPCS: 36415; 36600; 71045; 71275; 80048; 80076; 82550; 82553; 82803; 83690; 83735; 84439; 84443; 84484; 85025; 85027; 93005; 93041; 93306; 93880; 93970; 96372; 96374; 96375; 96376; 97116; 97161; 99285; G0378; J1650; J2270; J2405; Q9967

== ENCOUNTER → 2018-10-23 | Outpatient (REF) | payer MEDICARE ==
[2018-10-23 13:07] LABS: HEMOGLOBIN A1c 5.9 %
== END ==
LOC: M SFHCPLAZ 09:13
PROVIDERS: ATTEND Family Medicine
DX: E66.09 Other obesity due to excess calories (principal)

== ENCOUNTER 2019-02-09 09:53 | Inpatient (IN) | payer MEDICARE ==
[~2019-02-09] VITALS: Ht 172.7 cm; Wt 107.1 kg
[2019-02-09] MEDS: ASPIRIN 81 MG ENTERIC TAB PO SCH (09:00)
[2019-02-09] MEDS ORDERED: LEVOTAB10 PO (10:12)
[2019-02-09] MEDS ORDERED: NAPR-885 PO (10:12)
[2019-02-09] MEDS ORDERED: MELA3TAB41 PO (10:12)
[2019-02-09] MEDS ORDERED: BREO1INH3 INH (10:12)
[2019-02-09] MEDS ORDERED: LISI-542 PO (10:12)
[2019-02-09] MEDS ORDERED: ALBU8.5H INH (10:12)
[2019-02-09 10:31] LABS: BASO % 0.4 % (0.0-1.0); EOS # 0.2 10^3/uL (0.0-0.5); EOS % 2.3 % (0.0-3.0); HEMATOCRIT 45.1 % (42.0-52.0); HEMOGLOBIN 14.1 g/dl (13.5-17.5); LYMPH # 1.3 10^3/uL (1.5-5.0); LYMPH % 19.6 % (24.0-44.0); MEAN CORPUSCULAR HEMOGLOBIN 30.8 pg (27.0-33.0); MEAN CORPUSCULAR HGB CONC 31.3 g/dl (32.0-36.5); MEAN CORPUSCULAR VOLUME 98.5 fl (80.0-96.0); MONO # 0.5 10^3/uL (0.0-0.8); MONO % 7.9 % (0.0-5.0); NEUTROPHILS # 4.7 10^3/uL (1.5-8.5); NEUTROPHILS % 69.5 % (36.0-66.0); PLATELET COUNT, AUTOMATED 197 10^3/uL (150-450); RED BLOOD COUNT 4.58 10^6/uL (4.30-6.10); WHITE BLOOD COUNT 6.8 10^3/uL (4.0-10.0)
[2019-02-09 10:37] LABS: INR 1.08; PARTIAL THROMBOPLASTIN TIME 30.6 SECONDS (25.0-38.4); PROTHROMBIN TIME 13.8 SECONDS (11.8-14.0)
[2019-02-09 10:51] LABS: BLOOD UREA NITROGEN 18 MG/DL (7-18); CALCIUM LEVEL 8.9 MG/DL (8.8-10.2); CARBON DIOXIDE LEVEL 30 MEQ/L (21-32); CHLORIDE LEVEL 106 MEQ/L (98-107); CK-MB VALUE MASS 2.7 NG/ML (<3.6); CPK CREATINE PHOSPHOKINASE 87 U/L (39-308); CREATININE FOR GFR 0.79 MG/DL (0.70-1.30); FREE T4 1.23 NG/DL (0.76-1.46); GLOMERULAR FILTRATION RATE > 60.0 (>42); GLUCOSE, FASTING 110 MG/DL (70-100); NT-PRO BNP 2186 PG/ML (<450); POTASSIUM SERUM 4.1 MEQ/L (3.5-5.1); SODIUM LEVEL 142 MEQ/L (136-145); THYROID STIMULATING HORMONE 0.713 uIU/ML (0.358-3.740); TROPONIN I < 0.02 NG/ML (< 0.10)
[2019-02-09] MEDS ORDERED: FUROSEMIDE 40 MG/4 ML VIAL (J1940) IV ONE (11:15)
[2019-02-09] MEDS ORDERED: METOPROLOL TART 50 MG TAB PO ONE (11:15)
--- NOTE | 2019-02-09 11:17 | REP ---
PORTABLE CHEST X-RAY: Single view. HISTORY: Chest pain. COMPARISON STUDY: October 05, 2018. FINDINGS: Right hemidiaphragm remains somewhat elevated. Low level of inspiration. Plate-like atelectasis is seen in the left base. No acute infiltrate is appreciated. Cardiomediastinal silhouette is unremarkable. There are degenerative changes in the thoracic spine and there is a dextroconvex curvature. IMPRESSION: Plate-like atelectasis left base. Elevated right hemidiaphragm. No acute infiltrate. Electronically Signed by Marco Britton MD 02/09/2019 01:03 P
[2019-02-09] MEDS: METOPROLOL 5 MG/5 ML VIAL IV SCH ×3 (11:25→12:10)
[2019-02-09] MEDS: METOPROLOL TART 25 MG TABLET PO SCH ×3 (12:00→23:43)
[2019-02-09] MEDS ORDERED: MECL12.575 PO (12:05)
[2019-02-09] MEDS ORDERED: AMLO5TAB6 PO (12:05)
[2019-02-09 14:00] VITALS: BP 122/68
[2019-02-09] MEDS: APIXABAN 5 MG TAB (ELIQUIS) PO SCH ×2 (14:25→20:42)
[2019-02-09] MEDS ORDERED: ALBUTEROL 90 MCG/ACT 8GM HFA INHALER INH PRN (15:00)
--- NOTE | 2019-02-09 15:42 | REP ---
Bilateral lower extremity Duplex Doppler venous ultrasound: Real time compression and duplex Doppler interrogation of the bilateral lower extremity deep venous system is performed. Bilaterally, the common femoral, superficial femoral and popliteal veins are fully compressible with transducer pressure and demonstrate normal spontaneous and phasic flow, without evidence of deep venous thrombosis. Impression: No evidence of deep venous thrombosis of the bilateral lower extremity femoral popliteal venous system. Electronically Signed by Abdelrahman Chavez MD 02/09/2019 03:33 P
[2019-02-09] MEDS: GABAPENTIN 100 MG CAP PO SCH ×2 (15:55→20:42)
[2019-02-09] MEDS ORDERED: metOLazone 5 MG TAB PO ONE (17:15)
[2019-02-09] MEDS: ONDANSETRON 4MG/2ML VIAL (J2405) IV SCH ×2 (17:33→23:52)
--- NOTE | 2019-02-09 17:38 | REP ---
Portable KUB: Two views. History: Intractable nausea. Findings: Supine view of the abdomen demonstrates a normal bowel gas pattern. There is air and stool in a nondistended colon. The stomach is not this distended. No small bowel dilation is seen. Impression: Normal bowel gas pattern. Electronically Signed by Marco Britton MD 02/09/2019 05:36 P
[2019-02-09] MEDS: FUROSEMIDE 40 MG/4 ML VIAL (J1940) IV SCH ×2 (18:01→21:27)
[2019-02-09] MEDS: LEVALBUTEROL 1.25 MG/0.5 ML CONCENTRATE NEB INH SCH (18:08)
[2019-02-09] MEDS ORDERED: ISOVUE-370 76% 100ML VIAL (Q9967) As Ordered ONE (18:25)
[2019-02-09 18:42] LABS: CK-MB VALUE MASS 2.2 NG/ML (<3.6); CPK CREATINE PHOSPHOKINASE 68 U/L (39-308); MB/CK RELATIVE INDEX 3.24 (< OR =4); TROPONIN I < 0.02 NG/ML (< 0.10)
--- NOTE | 2019-02-09 18:58 | REPVR ---
PROCEDURE INFORMATION: Exam: CT Angiography Chest With Contrast Exam date and time: 02/09/2019 6:36 PM Age: 78 years old Clinical history: Shortness of breath; Additional info: SOB R/O pe TECHNIQUE: Imaging protocol: Computed tomographic angiography of the chest with intravenous contrast. 3D rendering: MIP reconstructed images were created and reviewed. Radiation optimization: All CT scans at this facility use at least one of these dose optimization techniques: automated exposure control; mA and/or kV adjustment per patient size (includes targeted exams where dose is matched to clinical indication); or iterative reconstruction. Contrast material: ISOVUE 370; Contrast volume: 75 ml; Contrast route: IV; COMPARISON: CT ANGIO CHEST 10/05/2018 3:36 PM FINDINGS: Pulmonary arteries: There are no pulmonary emboli. Aorta: The aorta demonstrates mild atherosclerotic calcification. There is no aortic dissection or aneurysm. Lungs: There is a 4 mm noncalcified peripheral lung nodule in the right middle lobe. This is unchanged in comparison to the prior study of 10/05/2018. No followup suggested as these are overwhelmingly statistically likely to be benign granulomas. There is bibasilar compressive atelectasis. Pleural space: Unremarkable. No pneumothorax. No pleural effusion. Heart: Cardiomegaly. There is mild atherosclerotic calcification of the coronary arteries. Diaphragm: Eventration right hemidiaphragm. Lymph nodes: Unremarkable. No enlarged lymph nodes. Bones/joints: Degenerative changes glenohumeral joints. Marked degenerative changes 1st costomanubrial joints. The spine demonstrates moderate degenerative changes. Soft tissues: Unremarkable. Other findings: Suboptimal inspiratory effort. IMPRESSION: 1. Cardiomegaly. 2. There is no aortic dissection or aneurysm. 3. There are no pulmonary emboli. 4. No acute pulmonary parenchymal abnormalities demonstrated. Suboptimal inspiratory effort coupled with a right hemidiaphragmatic eventration as indicated above. Electronically signed by: Roly Rodriguez On 02/09/2019 18:58:40 PM
--- NOTE | 2019-02-09 19:40 | ECHO ---
DATE OF PROCEDURE: 02/09/2019 REFERRING PHYSICIAN: Dr. Rodríguez INDICATION: Atrial fibrillation, congestive heart failure. Height 68 inches, weight 119 kg. DIMENSIONS: IVS: 1.4 LV: 4.5 LVPW: 1.4 LA: 4.3 Aorta: 3.4 IVC: 2.2 FINDINGS: The study is of rather difficult technical quality with limited visualization. The patient is in atrial fibrillation with heart rate around 100 beats per minute. Left ventricle is normal size. There appears to be normal contractility based on limited views. I estimate ejection fraction (EF) around 60-65%. Right ventricle appears dilated. Both atria are enlarged. Aortic valve is sclerotic but mobility seems to be preserved. Mitral and tricuspid valves appear normal. Pulmonic valve was not seen. No pericardial effusion is noted. Inferior vena cava (IVC) appears at least mildly dilated based on poor visualization. Aortic root is normal. Aortic arch and abdominal aorta were not seen. Doppler interrogation reveals no aortic stenosis or insufficiency. There is also no significant mitral valvular disease. Trace tricuspid insufficiency is seen. Calculated pulmonary artery pressure is at a minimum around 40 mmHg, which would correspond to moderate pulmonary hypertension. Evaluation of diastolic function is inconclusive due to underlying atrial fibrillation. CONCLUSIONS: 1. Study is of limited technical quality. The patient is in atrial fibrillation with reasonably controlled rate. 2. Normal left ventricular (LV) size with mild left ventricular hypertrophy (LVH) and grossly preserved systolic function. 3. No hemodynamically significant valvular disease. 4. Suggestive of elevated central venous pressure and at least moderate pulmonary hypertension. 5. Dilated right ventricle. COMMENT: Subacute bacterial endocarditis (SBE) prophylaxis is not recommended.
--- NOTE | 2019-02-09 20:15 | ECGEPIP ---
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
[2019-02-09] MEDS: MECLIZINE 12.5 MG TAB PO SCH (20:42)
[2019-02-09 22:00] VITALS: BP 98/55
--- NOTE | 2019-02-09 22:19 | ECGEPIP ---
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
[2019-02-10] VITALS (10 sets, daily range): BP systolic 96–133; BP diastolic 53–87; O2SAT 95
[2019-02-10] MEDS: FUROSEMIDE 40 MG/4 ML VIAL (J1940) IV SCH ×2 (02:00→06:00)
[2019-02-10 02:43] LABS: BLOOD UREA NITROGEN 24 MG/DL (7-18); CALCIUM LEVEL 8.3 MG/DL (8.8-10.2); CARBON DIOXIDE LEVEL 35 MEQ/L (21-32); CHLORIDE LEVEL 104 MEQ/L (98-107); CK-MB VALUE MASS 1.8 NG/ML (<3.6); CPK CREATINE PHOSPHOKINASE 57 U/L (39-308); CREATININE FOR GFR 1.11 MG/DL (0.70-1.30); GLOMERULAR FILTRATION RATE > 60.0 (>42); GLUCOSE, FASTING 112 MG/DL (70-100); MAGNESIUM LEVEL 1.9 MG/DL (1.8-2.4); MB/CK RELATIVE INDEX 3.16 (< OR =4); POTASSIUM SERUM 4.4 MEQ/L (3.5-5.1); SODIUM LEVEL 148 MEQ/L (136-145); TROPONIN I < 0.02 NG/ML (< 0.10)
[2019-02-10] MEDS: ONDANSETRON 4MG/2ML VIAL (J2405) IV SCH ×3 (06:00→17:37)
[2019-02-10] MEDS: METOPROLOL TART 25 MG TABLET PO SCH ×3 (06:00→17:37)
[2019-02-10 06:26] LABS: HEMATOCRIT 42.1 % (42.0-52.0); HEMOGLOBIN 13.2 g/dl (13.5-17.5); MEAN CORPUSCULAR HEMOGLOBIN 30.8 pg (27.0-33.0); MEAN CORPUSCULAR HGB CONC 31.4 g/dl (32.0-36.5); MEAN CORPUSCULAR VOLUME 98.4 fl (80.0-96.0); PLATELET COUNT, AUTOMATED 190 10^3/uL (150-450); RED BLOOD COUNT 4.28 10^6/uL (4.30-6.10); WHITE BLOOD COUNT 6.8 10^3/uL (4.0-10.0)
[2019-02-10 06:55] LABS: BLOOD UREA NITROGEN 26 MG/DL (7-18); CALCIUM LEVEL 8.7 MG/DL (8.8-10.2); CARBON DIOXIDE LEVEL 34 MEQ/L (21-32); CHLORIDE LEVEL 105 MEQ/L (98-107); CREATININE FOR GFR 1.07 MG/DL (0.70-1.30); GLOMERULAR FILTRATION RATE > 60.0 (>42); GLUCOSE, FASTING 99 MG/DL (70-100); MAGNESIUM LEVEL 2.2 MG/DL (1.8-2.4); POTASSIUM SERUM 4.5 MEQ/L (3.5-5.1); SODIUM LEVEL 145 MEQ/L (136-145)
[2019-02-10] MEDS: LEVALBUTEROL 1.25 MG/0.5 ML CONCENTRATE NEB INH SCH ×7 (07:33→23:16)
[2019-02-10] MEDS ORDERED: DIGOXIN INJ 0.5 MG/2 ML AMP (J1160) IV STA (07:56)
[2019-02-10] MEDS: ASPIRIN 81 MG ENTERIC TAB PO SCH (08:27)
[2019-02-10] MEDS: TAMSULOSIN 0.4 MG CAP PO SCH (08:27)
[2019-02-10] MEDS: APIXABAN 5 MG TAB (ELIQUIS) PO SCH ×2 (08:27→20:58)
[2019-02-10] MEDS: ATORVASTATIN 20 MG TAB PO SCH (08:29)
[2019-02-10] MEDS: GABAPENTIN 100 MG CAP PO SCH ×3 (08:29→20:58)
[2019-02-10] MEDS: FINASTERIDE 5 MG TAB PO SCH (08:30)
--- NOTE | 2019-02-10 08:48 | REP ---
Portable chest x-ray: Sitting AP view. History: Short of breath. Comparison study: February 09 2019. Findings: Today's radiograph is exposed at a relatively lordotic projection. The lungs are symmetrically aerated . There is minimal plate-like atelectasis in the left base improved from yesterday's radiograph. Right hemidiaphragm is somewhat elevated as before. Pleural angles are sharp. Heart is not enlarged. Pulmonary vasculature is not increased. The thoracic aorta somewhat tortuous and calcific. Impression: No acute disease. Electronically Signed by Marco Britton MD 02/10/2019 08:39 A
[2019-02-10] MEDS ORDERED: NITROGLYCERIN 0.4 MG SUBL TABLET SL STA (09:28)
[2019-02-10] MEDS ORDERED: NITROGLYCERIN 0.4 MG SUBL TABLET SL PRN (09:30)
[2019-02-10] MEDS ORDERED: AMIODARONE HCL 150 MG in IV 1 EA IV STA (09:37)
[2019-02-10] MEDS ORDERED: GI COCKTAIL 50ML BTL(HYOSCYAMINE/MAALOX/LIDOCAINE VISCOUS)(1:3:1) PO PRN (09:45)
[2019-02-10] MEDS ORDERED: GI COCKTAIL 50ML BTL(HYOSCYAMINE/MAALOX/LIDOCAINE VISCOUS)(1:3:1) PO ONE (10:00)
[2019-02-10] MEDS ORDERED: MORPHINE 2 MG/ML 1ML VIAL (J2270) IV ONE (10:00)
[2019-02-10 10:15] LABS: CK-MB VALUE MASS 1.5 NG/ML (<3.6); CPK CREATINE PHOSPHOKINASE 72 U/L (39-308); MB/CK RELATIVE INDEX 2.08 (< OR =4); TROPONIN I < 0.02 NG/ML (< 0.10)
--- NOTE | 2019-02-10 10:27 | REP ---
Portable left shoulder: Single view. History: Left shoulder pain. Findings: There is osteoarthritic spurring at the acromioclavicular and glenohumeral articulations. There is diffuse osteopenia. There is some soft tissue calcification at the superior margin of the AC joint. Periarticular soft tissues are otherwise unremarkable. Impression: Diffuse osteoporosis. Glenohumeral and acromioclavicular joint osteoarthritis. No acute bony abnormality. Electronically Signed by Marco Brtiton MD 02/10/2019 10:19 A
--- NOTE | 2019-02-10 10:50 | HPE ---
DATE OF ADMISSION: 02/09/2019 CHIEF COMPLAINT: Shortness of breath, lower extremity edema, and weight gain. HISTORY OF PRESENTING ILLNESS: This is a 78-year-old male who presented to the emergency room with a 30-pound weight gain from his usual 237 pounds to current 262 pounds, worsening shortness of breath for the past 4 months, worsened in the past week, as well as dyspnea on exertion, paroxysmal nocturnal dyspnea, and three-pillow orthopnea, sleeping in recliner for the past 2 weeks. The patient had first noted issues in September of this year when he was at a family reunion and helping moving the tables. The patient felt sharp pains in the left anterior chest with shortness of breath which was abated with sitting down. He was referred to Dr. Carlin's office for a cardiac stress test and was unable to complete it due to worsening shortness of breath for the past 2 weeks. He has had dyspnea on exertion, unable to ambulate without having to sit down and rest. He had been sleeping on a chair and has been exhausted since he has not been getting good sleep recently. Along with that, he has had a cough which is clear without fever or chills. He has had some stomach upset but no vomiting or nausea. He was previously treated for shortness of breath issues during the previous admission with Hermelinda Millard, but this has not helped him at home. He has not used any albuterol. Today, he was sent over from cardiac stress testing due to heart failure. In the emergency room (ER), the patient was saturating well at 97%. Chest x- ray, however, showed plate-like atelectasis in the left base. Elevated right hemidiaphragm. No acute infiltrate. In the ER, he was found to have atrial fibrillation (AFib) with rapid ventricular response (RVR). Ventricular rate of 133. Was given metoprolol 5 mg intravenous (IV) every 5 minutes with significant improvement. The patient was normotensive with pressure of 123-165 systolic. Venous Dopplers of lower extremity showed no evidence of deep venous thrombosis (DVT). Troponin was less than 0.02, and brain natriuretic peptide (BNP) was 2186. Hospitalist was called to admit for congestive heart failure (CHF) exacerbation. PAST MEDICAL HISTORY: 1. Hypertension. 2. Reflux. 3. Benign prostatic hypertrophy (BPH). 4. Erectile dysfunction. 5. Left ear basal cell carcinoma. 6. Hyperlipidemia. 7. Inguinal hernias. 8. Mild left renal artery stenosis. 9. Moderate right renal artery stenosis. 10. Renal cyst. 11. Transient ischemic attack (TIA) with left facial droop without residuals. 12. Obstructive sleep apnea. 13. Kidney stones. 14. Lumbar degenerative disc disease with spinal stenosis. ALLERGIES: To PENICILLIN and SULFA causing rash. PAST SURGICAL HISTORY: 1. Left knee replaced in 2016. 2. surgery on left hallux 2015. 3. Carpal tunnel bilaterally in 2000. 4. Cystoscopy in 2018. 5. Disc fusion in 2001. 6. Rotator cuff on the right in 2000. FAMILY HISTORY: Father age 57 with pancreatic cancer. Mother with hypertension at 93. Sibling , three brothers. One sister healthy. One brother with Pam Gehrig's. Father had pancreatic cancer. SOCIAL HISTORY: Social alcohol use. Drinks [place] once a month. Never smoked. DO NOT RESUSCITATE. DO NOT INTUBATE. The patient had a healthcare proxy, Bibi, . 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 Twelve-point system otherwise negative. Electrocardiogram (EKG) unavailable at this time. Chest x-ray: No acute infiltrate. Right hemidiaphragm remains elevated. Low level of inspiration. Plate-like atelectasis in the left base. No acute infiltrate. Cardiomediastinal silhouette is unremarkable. Degenerative changes in thoracic spine with dextroconvex curvature. CT chest is pending. Venous Dopplers lower extremity is negative. Abdominal x-ray: Normal bowel gas pattern. PHYSICAL EXAMINATION: Temperature 97.5, pulse 105 irregular, respiratory rate 17, blood pressure 122/68, 95% on room air. Generally, the patient is awake, alert, oriented to person, place, and time. Anicteric. No jaundice. Positive use of respiratory accessory muscles without nasal flaring. Positive jugular venous distention (JVD). No cervical lymphadenopathy. Lungs are diminished. No crackles. Air entry is equal bilaterally. Heart: S1, S2, irregularly irregular and tachycardic. Abdomen: Is obese, soft, nontender. Extremities: 3+ pitting edema to the sacrum. LABORATORY DATA: White count 6.8, hemoglobin 14, hematocrit 45, platelet count 197, 69% neutrophils, 19% lymphocytes. Sodium 142, potassium 4.1, chloride 106, bicarbonate 30, BUN 18, creatinine 0.79, glucose 110, calcium 8.9, total CK 87, MB fraction 2.7, troponin less than 0.02, BNP 2186, TSH 0.713, free T4 1.23. INR 1.08. IMAGING STUDIES: Vascular Doppler: Lower extremity negative for DVT. Kidneys, ureters, bladder (KUB) (x-ray) due to nausea. Negative. Chest x-ray shows no acute infiltrate, plate-like atelectasis left base. Elevated right hemidiaphragm. CT chest is pending. ASSESSMENT AND PLAN: This is a 78-year-old male who was sent from the brush or broom cutter's office, unable to complete a stress test due to worsening shortness of breath, found to have congestive heart failure (CHF). CURRENT ISSUES: 1. Congestive heart failure, new onset with atrial fibrillation with rapid ventricular response. The patient is under telemetry, Lasix every 4 hours, net negative balance, strict intake and output (I and O), and daily weights. Cycle cardiac markers. Rule out acute coronary syndrome. Acute decompensation, most likely secondary to AFib with RVR which is now rate controlled with metoprolol. 2. Atrial fibrillation with rapid ventricular response. Currently, on anticoagulation with Eliquis, as well as metoprolol every 6 hours with holding parameters. 3. Lower extremity edema secondary to congestive heart failure. Continue with diuresis. DVT has been ruled out with negative ultrasound bilaterally. The patient remained on 94% oxygen (O2) saturation on room air on admission despite complaints of shortness of breath. 4. Stable angina. Stress test as outpatient. Cycle cardiac markers. Due to new-onset CHF, may need transfer to [place] for immediate evaluation of the patient's coronary arteries. 5. History of benign prostatic hypertrophy. Postvoid residual is diminished urine output. Continue with home medication, Proscar. 6. Dyslipidemia. On chronic Lipitor. Check lipid panel in the morning. 7. Nausea. Abdominal film was negative. As-needed Zofran. MTDD
[2019-02-10] MEDS ORDERED: LEVALBUTEROL 1.25 MG/0.5 ML CONCENTRATE NEB INH PRN (11:15)
[2019-02-10] MEDS ORDERED: methylPREDNISolone INJ 125 MG/2 ML VIAL (J2930) IV ONE (12:00)
[2019-02-10] MEDS ORDERED: DIGOXIN INJ 0.5 MG/2 ML AMP (J1160) IV SCH (12:00)
--- NOTE | 2019-02-10 13:43 | IPN ---
DATE: 02/10/2019 Patient complains of left-sided chest pain anterior radiating up the neck and down the left arm. He was therefore transferred to the progressive care unit today atrial fibrillation (AFib) with rapid ventricular response (RVR) ventricular rate of 115 with systolic pressure of 98/55-103/61. Patient describes the pain as sharp and achy with some shortness of breath and wheezing. Intake and output (I's and O's) overnight were negative 135 with 1.2 liters out. Patient has no infiltrate and no edema or effusion on x-ray. Patient complains of point tenderness of the left glenohumeral and acromioclavicular (AC) joint. The x-ray shows arthritis and diffuse osteoporosis. VITAL SIGNS: Temperature 97.2, pulse 103, respiratory rate 256, blood pressure 122/71, 93% on 2 liters nasal cannula. No jugular venous distention (JVD). No thyromegaly. No cervical lymphadenopathy. Positive respiratory distress with the use of respiratory accessory muscle, 4-5 word conversational dyspnea. Lungs diminished, bilateral wheezing. Heart: S1, S2, irregularly irregular, tachycardic. Abdomen is obese, soft, doughy. Positive bowel sounds times four quadrants. No rebound or guarding. Extremities: 2+ pitting edema to the sacrum. LAB DATA: White count 6.8, hemoglobin 13, hematocrit 42, platelet count 190. Sodium 145, potassium 4.5, chloride 105, bicarbonate 34, BUN 26, creatinine 1.07, glucose of 99. Troponin less than 0.02. Chest x-ray, 02/10/2019, no acute disease. Shoulder x-ray diffuse osteoporosis. 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 CT chest no pulmonary embolism, no aortic dissection or aneurysm, cardiomegaly. Echocardiogram, read by Dr. Carlin, atrial fibrillation, LV with mild left ventricular hypertrophy (LVH), preserved systolic function, ejection fraction of 60-65%, moderate pulmonary hypertension and dilated right ventricle. EKG, Dr. Prescott, 02/09/2019, AFib, right bundle branch block with left anterior vesicular block. ASSESSMENT AND PLAN: 1. Atrial fibrillation with rapid ventricular response due to low blood pressure of 98. Patient was given one dose of IV amiodarone, placed on anticoagulation, Eliquis 5 twice a day and continued on Lopressor 25 every 6 hours. 2. Left-sided chest pain. Repeat cardiac markers and 12 lead EKG. Patient has been given nitroglycerin. Currently on metoprolol, as needed gastrointestinal (GI) cocktail. 3. Acute respiratory distress secondary to AFib with RVR and possible chronic obstructive pulmonary disease (COPD). A trial of steroids. 4. Possible chronic obstructive pulmonary disease acute onset exacerbation. The patient is put on Solu-Medrol nebulizer treatments. Checked respiratory panel, which was negative. Sputum culture is negative. 5. Abnormal EKG with atrial fibrillation and complete right bundle branch block. Currently on nitroglycerin as needed, metoprolol, atorvastatin, and aspirin. 6. Hypertensive heart disease. Continue on metoprolol for now. Patient has LVH on echo. 7. Moderate pulmonary hypertension complicating the care. Most likely due to untreated sleep apnea. Patient's blood pressure is too low today to start on diuresis. Monitor fluid intake and strict intake and output. 2 liter fluid restriction. MTDD
[2019-02-10] MEDS: FUROSEMIDE 100 MG/10 ML VIAL (J1940) IV SCH (14:37)
[2019-02-10 17:15] LABS: HEMOGLOBIN A1c 6.2 %
--- NOTE | 2019-02-10 17:23 | CR ---
DATE OF CONSULTATION: 02/10/2019 REFERRING PHYSICIAN: [facility] ([facility]) Emergency Room (ER), Dr. Joyner. INDICATION: Congestive heart failure. HISTORY OF PRESENT ILLNESS: Mr. Johnson is known to me. Actually, I sent him to the emergency room yesterday because of dyspnea. I have known him relatively short period of time. He was referred to our office for evaluation of dyspnea. According to the patient, the dyspnea has been present since this summer when he was hospitalized for congestive heart failure, diastolic in nature. Apparently, it has never gotten better since. We saw him in the office approximately 2 weeks ago, and he felt to be reasonably well compensated, but because of severe limiting exertional dyspnea, there was a plan to evaluate him for of underlying coronary artery disease (CAD). He came to the office for a nuclear stress test, but he was unable to lie on the examining table, and he had [place] Heart Association class 3-4 dyspnea. He was also found to be in atrial fibrillation with rapid ventricular response, which was new to him. Consequently he was sent to the emergency room. He has been treated with rate control and was started and anticoagulation. He also was given intravenous (IV) diuretics. This morning he tells me that he is feeling better but not much better. He still gets short of breath just getting out of bed. There was no edin paroxysmal nocturnal dyspnea (PND). He does report that he has had a weight gain over last several months he estimates about 30 pounds, even though I am not sure how well this is documented. He denies any edin PND but does have a component of orthopnea. He also noticed mild peripheral edema, and he continues to have fairly atypical sharp anterior chest discomfort that does not seem to be related to activity. PAST MEDICAL HISTORY: 1. Hypertension. 2. Gastroesophageal reflux disease (GERD). 3. BPH. 4. Dyslipidemia. 5. Remote history of transient ischemic attacks (TIA). 6 Obstructive sleep apnea (AARTI). 7. Nephrolithiasis. 8. Spinal problems. PAST SURGICAL HISTORY: 1. Left knee replacement. 2. Left hallucal surgery. 3. Bilateral carpal tunnel. 4. Cystoscopy. 5. Spinal surgery. 6. Right rotator cuff repair. FAMILY HISTORY: Father of pancreatic cancer, and mother lived to be 93. 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 He never smoked. He does not drink alcohol. He has a healthcare proxy, his daughter, Herminia. REVIEW OF SYSTEMS: He denies any recent feeling fever, chills, nausea, vomiting, diarrhea. He does admit to weight gain, even though the specific weight is poorly recorded. He did have a component of orthopnea, atypical chest discomfort as history of present illness (HPI). No edin cough. No diarrhea. No genitourinary symptoms, only trace amount of peripheral edema. No syncope or near syncope and no palpitations. LABORATORY: This morning basic metabolic panel: Sodium 145, potassium 4.5, BUN 26, creatinine 1.1, glucose 99. He already had four sets of cardiac enzymes that were negative, and terminal proBNP on admission was 2200. CBC: Hemoglobin is 13.2, hematocrit 42, platelet count 190,000. CURRENT MEDICATIONS: - Xopenex inhaler - GI cocktail - nitroglycerin as needed - Lipitor 20 a day - Proscar 5 mg a day - Flomax 0.4 a day - gabapentin 100 three times - metoprolol 25 every 6 - Eliquis 5 twice a day - aspirin 81 mg a day Chest x-ray is consistent with congestive heart failure. CT angiography of the chest was negative for pulmonary embolism. ASSESSMENT AND PLAN: Mr. Johnson is a 78-year-old man who presents with exacerbated diastolic congestive heart failure, most likely due to new onset of atrial fibrillation. The onset of arrhythmia is at this point uncertain, but it is likely within the last few days. As far as the atrial fibrillation management is concerned, I agree with complete anticoagulation with apixaban. I am going to discontinue aspirin, as he so far does not have any proven coronary artery disease. I will agree with continuation of metoprolol for rate control. He is currently receiving 25 mg every 6, and the dose can be adjusted depending on response. As far as the management of heart failure is concerned, it is diastolic in nature, and consequently there is no etiologic therapy available. I believe that with better rate control and possibly jew of sinus mechanism, we will accomplish better compensation. He continues to need diuretics, and I am going to increase the dose of IV. Obviously, the doses will be adjusted depending on his response. Appropriate sodium and fluid restrictions will be applied. I will follow the patient with you.
[2019-02-10] MEDS: MECLIZINE 12.5 MG TAB PO SCH (20:58)
--- NOTE | 2019-02-10 21:41 | ECGEPIP ---
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
--- NOTE | 2019-02-10 21:43 | ECGEPIP ---
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
[2019-02-10] MEDS ORDERED: NS 1,000 ML IV ONE (23:45)
[2019-02-10 23:46] LABS: ABG HCO3 35.2 MEQ/L (22.0-26.0); ABG O2 SATURATION 94.1 % (95.0-99.0); ABG STANDARD HCO3 28.9 MEQ/L (22.0-26.0); ABG TOTAL CO2 37.7 MEQ/L (23.0-31.0); ABG pH (ARTERIAL) 7.254 UNITS (7.350-7.450)
[2019-02-10 23:49] LABS: ABG PARTIAL PRESSURE CO2 81.3 mmHg (35.0-45.0)
[2019-02-11] VITALS (17 sets, daily range): BP systolic 111–154; BP diastolic 62–88; O2SAT 84–97
[2019-02-11] MEDS ORDERED: NS 500 ML IV ONE (00:15)
[2019-02-11 00:21] LABS: HEMATOCRIT 44.2 % (42.0-52.0); HEMOGLOBIN 13.5 g/dl (13.5-17.5); MEAN CORPUSCULAR HEMOGLOBIN 30.8 pg (27.0-33.0); MEAN CORPUSCULAR HGB CONC 30.5 g/dl (32.0-36.5); MEAN CORPUSCULAR VOLUME 100.7 fl (80.0-96.0); PLATELET COUNT, AUTOMATED 199 10^3/uL (150-450); RED BLOOD COUNT 4.39 10^6/uL (4.30-6.10); WHITE BLOOD COUNT 6.5 10^3/uL (4.0-10.0)
[2019-02-11 00:45] LABS: BLOOD UREA NITROGEN 31 MG/DL (7-18); CALCIUM LEVEL 8.7 MG/DL (8.8-10.2); CARBON DIOXIDE LEVEL 34 MEQ/L (21-32); CHLORIDE LEVEL 102 MEQ/L (98-107); CK-MB VALUE MASS 1.2 NG/ML (<3.6); CPK CREATINE PHOSPHOKINASE 81 U/L (39-308); CREATININE FOR GFR 1.28 MG/DL (0.70-1.30); GLUCOSE, FASTING 163 MG/DL (70-100); POTASSIUM SERUM 4.9 MEQ/L (3.5-5.1); SODIUM LEVEL 143 MEQ/L (136-145)
[2019-02-11 00:46] LABS: MAGNESIUM LEVEL 2.3 MG/DL (1.8-2.4); MB/CK RELATIVE INDEX 1.48 (< OR =4); TROPONIN I < 0.02 NG/ML (< 0.10)
[2019-02-11] MEDS: ONDANSETRON 4MG/2ML VIAL (J2405) IV SCH ×2 (01:19→06:00)
[2019-02-11] MEDS: FUROSEMIDE 100 MG/10 ML VIAL (J1940) IV SCH ×3 (01:19→23:58)
[2019-02-11] MEDS: METOPROLOL TART 25 MG TABLET PO SCH ×5 (01:20→23:58)
[2019-02-11 01:52] LABS: ABG HCO3 28.5 MEQ/L (22.0-26.0); ABG O2 SATURATION 99.2 % (95.0-99.0); ABG PARTIAL PRESSURE CO2 57.7 mmHg (35.0-45.0); ABG PARTIAL PRESSURE O2 176.3 mmHg (75.0-100.0); ABG STANDARD HCO3 25.4 MEQ/L (22.0-26.0); ABG TOTAL CO2 30.2 MEQ/L (23.0-31.0); ABG pH (ARTERIAL) 7.311 UNITS (7.350-7.450)
[2019-02-11] MEDS: LEVALBUTEROL 1.25 MG/0.5 ML CONCENTRATE NEB INH SCH ×10 (03:23→23:21)
[2019-02-11 05:08] LABS: HEMATOCRIT 44.2 % (42.0-52.0); HEMOGLOBIN 13.4 g/dl (13.5-17.5); MEAN CORPUSCULAR HEMOGLOBIN 30.5 pg (27.0-33.0); MEAN CORPUSCULAR HGB CONC 30.3 g/dl (32.0-36.5); MEAN CORPUSCULAR VOLUME 100.5 fl (80.0-96.0); PLATELET COUNT, AUTOMATED 196 10^3/uL (150-450); WHITE BLOOD COUNT 8.1 10^3/uL (4.0-10.0)
--- NOTE | 2019-02-11 05:14 | IPNPDOC ---
Date Seen The patient was seen on 02/11/19. Progress Note I was called at bedside at around 2330 by his nurse for there was a change of mental status. Patient had pinpoint pupils was barely responsive to sternal rub. He kept stating that he was in "school" and was unable to state his name or age. Was difficult to get a blood pressure. Pulse was normal between 80-90. Patient does not exhibit any strokelike symptoms but was not following commands. He was satting appropriately at 95% on 2 L of nasal cannula which was placed on earlier this morning at 9 AM. Patient was not on nasal cannula the previous nights when reviewing documentation. Stat ABG, EKG, BMP, CBC, magnesium, lactic acid and cardiac marker was ordered. 500NS was also started. Initial ABG PCO2 was 81.3 with a pH of 7.25. Noninvasive ventilation was indicated and the patient was tra nsferred to ICU for further management. After being on noninvasive ventilation for about an hour his pH improved to 7.311 and PCO2 decreased to 57.7. Mentation improved and the patient was able to iterate person place and time appropriately. We continue to keep him on noninvasive ventilation until his ABG has normalized. We will repeat the ABG at 6:00 PM. He does endorse possible underlying obstructive sleep apnea and never got a sleep study in the past AARTI protocol in place. Oxygen titration orders placed to maintain sats between 80 and 92. Upon discharge might consider sleep study. Family was called about everything that occurred overnight and were agreeable to the plan. Lastly, the remaining of his night medications were given as scheduled after being transferred to the ICU. Possible downgrade later this morning once off noninvasive. VS, I&O[facility] Sign[facility]/I&O Vital Signs Date Time Temp Pulse Resp B/P (MAP) Pulse Ox O2 Delivery O2 Flow Rate FiO2 02/11/19 04:00 98.0 100 18 111/70 (84) 98 NIPPV (BIPAP/CPAP) 40 02/10/19 23:20 2.0 I&O- Last 24 Hours up to 6 AM 02/11/19 06:00 Intake Total 1350 ml Output Total 2255 ml Balance -905 ml Laboratory Data 24H LABS Laboratory Tests 2 02/10/19 06:09: Nucleated Red Blood Cells % (auto) 0.0, Anion Gap 6L, Glomerular Filtration Rate > 60.0, Calcium Level 8.7L, Magnesium Level 2.2 02/10/19 09:32: Total Creatine Kinase 72, Creatine Kinase MB 1.5, Creatine Kinase MB Relative Index 2.08, Troponin I < 0.02 02/10/19 11:07: Bedside Glucose (Misc Panel) 270H 02/10/19 23:25: Bedside Glucose (Misc Panel) 149H 02/10/19 23:40: Blood Gas Bicarbonate Standard 28.9H, Arterial Blood pH 7.254L, Arterial Blood Partial Pressure CO2 81.3*H, Arterial Blood Partial Pressure O2 79.0, Arterial Blood Total CO2 37.7H, Arterial Blood HCO3 35.2H, Arterial Blood Base Excess 5.0H, Arterial Blood Oxygen Saturation 94.1L 02/11/19 00:13: Nucleated Red Blood Cells % (auto) 0.0, Anion Gap 7L, Glomerular Filtration Rate 58.0, Lactic Acid Level 1.7, Calcium Level 8.7L, Magnesium Level 2.3, Total Creatine Kinase 81, Creatine Kinase MB 1.2, Creatine Kinase MB Relative Index 1.48, Troponin I < 0.02 02/11/19 01:35: Blood Gas Bicarbonate Standard 25.4, Arterial Blood pH 7.311L, Arterial Blood Partial Pressure CO2 57.7H, Arterial Blood Partial Pressure O2 176.3H, Arterial Blood Total CO2 30.2, Arterial Blood HCO3 28.5H, Arterial Blood Base Excess 1.0, Arterial Blood Oxygen Saturation 99.2H 02/11/19 04:43: CBC/BMP Laboratory Tests 02/10/19 06:09 02/11/19 00:13 Microbiology Microbiology 02/09/19 Gram Stain - Final, Complete 02/09/19 Sputum Culture - Final, Complete 02/09/19 Respiratory Virus Panel (PCR) (BHARTI) - Final, Complete KIM ZAFAR DO Feb 11, 2019 05:14
[2019-02-11 05:31] LABS: ABG BASE EXCESS 1.3 (-2.0-2.0); ABG HCO3 28.1 MEQ/L (22.0-26.0); ABG O2 SATURATION 99.3 % (95.0-99.0); ABG PARTIAL PRESSURE CO2 53.2 mmHg (35.0-45.0); ABG PARTIAL PRESSURE O2 191.1 mmHg (75.0-100.0); ABG STANDARD HCO3 25.7 MEQ/L (22.0-26.0); ABG TOTAL CO2 29.7 MEQ/L (23.0-31.0)
[2019-02-11 05:41] LABS: BLOOD UREA NITROGEN 32 MG/DL (7-18); CALCIUM LEVEL 8.3 MG/DL (8.8-10.2); CARBON DIOXIDE LEVEL 35 MEQ/L (21-32); CHLORIDE LEVEL 102 MEQ/L (98-107); DIGOXIN LEVEL 0.1 NG/ML (0.5-2.0); GLOMERULAR FILTRATION RATE > 60.0 (>42); GLUCOSE, FASTING 150 MG/DL (70-100); MAGNESIUM LEVEL 2.1 MG/DL (1.8-2.4); POTASSIUM SERUM 4.8 MEQ/L (3.5-5.1); SODIUM LEVEL 143 MEQ/L (136-145)
[2019-02-11] MEDS: ATORVASTATIN 20 MG TAB PO SCH (09:14)
[2019-02-11] MEDS: FINASTERIDE 5 MG TAB PO SCH (09:14)
[2019-02-11] MEDS: GABAPENTIN 100 MG CAP PO SCH ×4 (09:14→20:17)
[2019-02-11] MEDS: TAMSULOSIN 0.4 MG CAP PO SCH (09:14)
[2019-02-11] MEDS: APIXABAN 5 MG TAB (ELIQUIS) PO SCH ×3 (09:14→20:17)
[2019-02-11] MEDS ORDERED: SLF 3 ML SYR IV PRN (11:15)
[2019-02-11] MEDS: SLF 3 ML SYR IV SCH ×2 (12:15→20:12)
--- NOTE | 2019-02-11 12:50 | IPN ---
DATE OF VISIT: 02/11/2019 Mr. Johnson is feeling little bit better. Unfortunately, last night he had an episode of some hypoxemia and was found to be hypercapnic and was started on BiPap which made a significant difference. This morning, he looks much more comfortable than he did yesterday. He still though has dyspnea with fairly minimal activity. He also complains about pain around his left scapula and is very tender on palpation in that area. Vital Signs: Blood pressure 119/70. Heart rate has been in 80s and 90s, atrial fibrillation. He is afebrile. Saturation is 93% on 2 liters of oxygen. Weight is 114 kg. He is alert, oriented, appropriate and very talkative as usual. His jugular venous pulse (JVP) appears just mildly elevated. I would assume about 3-4 cm above the clavicle. Lungs are much clearer today. I do not appreciate any wheezing or crackles and the air movement seems to be better. Heart exam reveals irregularly irregular rhythm without obvious gallop or rub. Abdomen is obese, but soft. There is still trace peripheral edema. Neurologically, he is intact. Laboratories: Hemoglobin 13.4, hematocrit 44, platelet count 196,000. Basic metabolic panel with sodium 143, potassium 4.8, BUN 32, creatinine 1.2, glucose 150. ASSESSMENT/PLAN: Mr. Johnson is a 78-year-old man who presents with acutely exacerbated diastolic congestive heart failure. It is almost certain that the trigger at this point was new-onset atrial fibrillation. As far as the management of atrial fibrillation is concerned, we have been focusing on rate control. It seems to be reasonably acceptable on 25 mg of metoprolol every 6 hours. I am going to leave the dose unchanged and if all goes well will try to give him long acting medication tomorrow. He has been anticoagulated with Apixaban. As far as the heart failure is concerned, he still appears mildly volume overloaded. I would continue current dose of diuretics which are quite high dose. Blood pressure is reasonably well-controlled. He had a need for BiPap last night and I do suspect that it will be the case again. I will try to speed up the performance of outpatient sleep study that is apparently currently scheduled sometime in late February. We will continue following the patient with you. I do think that it is going to be probably a few more days before he will be ready to go home.
[2019-02-11] MEDS: MECLIZINE 12.5 MG TAB PO SCH ×2 (20:11→20:17)
[2019-02-12] VITALS (16 sets, daily range): BP systolic 111–138; BP diastolic 56–82; O2SAT 87–96
--- NOTE | 2019-02-12 01:13 | ECGEPIP ---
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
[2019-02-12] MEDS: METOPROLOL TART 25 MG TABLET PO SCH ×4 (05:13→23:59)
[2019-02-12] MEDS: SLF 3 ML SYR IV SCH ×3 (05:13→20:11)
[2019-02-12 05:32] LABS: HEMATOCRIT 45.1 % (42.0-52.0); HEMOGLOBIN 13.8 g/dl (13.5-17.5); MEAN CORPUSCULAR HEMOGLOBIN 30.7 pg (27.0-33.0); MEAN CORPUSCULAR HGB CONC 30.6 g/dl (32.0-36.5); MEAN CORPUSCULAR VOLUME 100.2 fl (80.0-96.0); PLATELET COUNT, AUTOMATED 211 10^3/uL (150-450); WHITE BLOOD COUNT 12.5 10^3/uL (4.0-10.0)
[2019-02-12 05:46] LABS: CALCIUM LEVEL 8.3 MG/DL (8.8-10.2); CREATININE FOR GFR 1.35 MG/DL (0.70-1.30); GLOMERULAR FILTRATION RATE 54.6 (>42); MAGNESIUM LEVEL 2.2 MG/DL (1.8-2.4); POTASSIUM SERUM 4.2 MEQ/L (3.5-5.1)
[2019-02-12] MEDS: LEVALBUTEROL 1.25 MG/0.5 ML CONCENTRATE NEB INH SCH ×7 (07:27→20:20)
[2019-02-12] MEDS: APIXABAN 5 MG TAB (ELIQUIS) PO SCH ×2 (08:00→20:10)
[2019-02-12] MEDS: TAMSULOSIN 0.4 MG CAP PO SCH (08:00)
[2019-02-12] MEDS: ATORVASTATIN 20 MG TAB PO SCH (08:00)
[2019-02-12] MEDS: GABAPENTIN 100 MG CAP PO SCH ×3 (08:00→20:10)
[2019-02-12] MEDS: FINASTERIDE 5 MG TAB PO SCH (08:02)
--- NOTE | 2019-02-12 10:15 | REP ---
CHEST, PORTABLE: AP portable view of the chest is performed and compared to a prior study of 02/10/2019. There is mild bibasilar atelectatic change which appears stable. Heart and mediastinum are unchanged. There is moderate elevation of the right hemidiaphragm. IMPRESSION: Stable bibasilar atelectatic change. Electronically Signed by Abdelrahman Chavez MD 02/12/2019 04:20 P
[2019-02-12] MEDS: FUROSEMIDE 100 MG/10 ML VIAL (J1940) IV SCH ×2 (12:14→23:58)
--- NOTE | 2019-02-12 18:00 | IPN ---
DATE: 02/11/2019 The patient still complains of left shoulder pain around the shoulderblade. The patient denies any palpitations, lightheadedness, or dizziness. He complains of shortness of breath and chronic lower extremity edema which is unchanged from yesterday. He did diurese 1.35 liters and has been net negative since admission. No fever or chills overnight. Shoulder x-ray shows osteoporosis and degenerative joint disease. Temperature 97.1, pulse 85, respiratory rate 20, blood pressure 119/70, 93% on room air. GENERAL: Awake, alert, oriented, answering questions appropriately, mild respiratory distress with 5-7 word conversational dyspnea. Positive jugular venous distention (JVD). No thyromegaly. LUNGS: Diminished. HEART: S1, S2, irregularly irregular. ABDOMEN: Obese, soft, nontender, nondistended. Positive bowel sounds. EXTREMITIES: 2+ pitting edema to his sacrum. Laboratory data, microbiology, and imaging studies have been reviewed. ASSESSMENT AND PLAN: A 78-year-old male admitted for the following issues: 1. Atrial fibrillation. Currently on metoprolol every six hours as well as apixaban. Discontinue aspirin as the patient has no known history of coronary artery disease. Statistics Manager has been consulted for help in the management, decision for transfer to [place] if needed. 2. Congestive heart failure (CHF) exacerbation, acute diastolic heart failure with exacerbation with preserved ejection fraction. Strict intake and output, daily weights, fluid restriction. Currently on IV Lasix twice a day managed by his stained glass artist. 3. Left scapular pain, secondary to osteoporosis and degenerative joint disease. Currently with a K-pad. 4. Acute respiratory distress, secondary to atrial fibrillation with rapid ventricular response (RVR) and CHF. 5. Hypertensive heart disease, on metoprolol with left ventricular hypertrophy (LVH) on echocardiogram, moderate pulmonary hypertension complicating his care, most likely due to untreated sleep apnea. 6. Obesity. Body mass index (BMI) of 38.2, most likely contributing to right-sided heart failure and moderate hypertension. MTDD
[2019-02-12] MEDS: ONDANSETRON 4MG/2ML VIAL (J2405) IV PRN (20:10)
[2019-02-12] MEDS: MECLIZINE 12.5 MG TAB PO SCH (20:10)
[2019-02-13] VITALS (25 sets, daily range): BP systolic 90–150; BP diastolic 60–88; O2SAT 86–98
[2019-02-13] MEDS: LEVALBUTEROL 1.25 MG/0.5 ML CONCENTRATE NEB INH SCH ×6 (00:25→20:35)
[2019-02-13] MEDS: SLF 3 ML SYR IV SCH ×3 (05:43→20:49)
[2019-02-13] MEDS: METOPROLOL TART 25 MG TABLET PO SCH ×2 (05:43→17:56)
[2019-02-13 06:54] LABS: HEMATOCRIT 45.6 % (42.0-52.0); MEAN CORPUSCULAR HEMOGLOBIN 30.4 pg (27.0-33.0); MEAN CORPUSCULAR HGB CONC 30.7 g/dl (32.0-36.5); MEAN CORPUSCULAR VOLUME 98.9 fl (80.0-96.0); PLATELET COUNT, AUTOMATED 212 10^3/uL (150-450); RED BLOOD COUNT 4.61 10^6/uL (4.30-6.10); WHITE BLOOD COUNT 9.6 10^3/uL (4.0-10.0)
[2019-02-13 07:10] LABS: CREATININE FOR GFR 1.27 MG/DL (0.70-1.30); GLOMERULAR FILTRATION RATE 58.5 (>42); MAGNESIUM LEVEL 2.2 MG/DL (1.8-2.4); POTASSIUM SERUM 3.9 MEQ/L (3.5-5.1)
--- NOTE | 2019-02-13 07:56 | IPN ---
DATE: 02/12/2019 Patient says his shortness of breath has improved. He still complains of left scapular pain which has improved slightly with heat. Patient denies any nausea, vomiting, feeling of impending doom, palpitations, lightheadedness or dizziness when he gets up. He still has lower extremity edema and cough productive of white sputum. Temperature 97.8, pulse 86, respiratory rate 18, blood pressure 138/82, 95% on 1 liter nasal cannula. Generally, awake, alert, oriented times three answering questions appropriately. No use of respiratory accessory muscles. Lungs diminished but clear to auscultation in the upper lobes. Fine crackles at the bases. Heart: S1, S2, irregularly regular. Abdomen is obese, soft, nontender, nondistended. Extremities: 2+ pitting edema bilateral lower extremities. Input and output: 1880, output of 3380, negative 1500. Current weight is 114 kg. On admission patient weight 117.7 kg. LABORATORY DATA: White count 12.5, hemoglobin 13, hematocrit 45, platelet count 211. Sodium 140, potassium 4.2, chloride 99, bicarbonate 39, BUN 43, creatinine 1.35, glucose 108. Repeat chest x-ray 02/12/2019: Bibasilar atelectasis. Shoulder x-ray 02/10/2019: Diffuse osteoporosis. Glenohumeral and acromioclavicular joint osteoarthritis. No acute bony deformity. ASSESSMENT/PLAN: This is a 78-year-old male with a history of hypertension, reflux, benign prostatic hypertrophy (BPH), hyperlipidemia, left renal artery stenosis, moderate right artery stenosis, transient ischemic attack (TIA) with left facial droop without residual, obstructive sleep apnea (AARTI), presents to the emergency room with worsening lower extremity edema, shortness of breath, nephrolithiasis, spinal problems, obesity, admitted for acute congestive heart failure (CHF) exacerbation, diastolic dysfunction due to new onset atrial fibrillation. 1. Acute new onset atrial fibrillation, currently on metoprolol and apixaban. Patient is receiving 25 every 6 hours. Defer to cardiology for changes in management. 2. Congestive heart failure exacerbation, diastolic dysfunction, acute onset. Patient is currently net negative balance on Lasix 80 IV every 12 hours. Strict ins and outs, daily weights and fluid restriction. Patient is requesting for fluid restriction and salt intake to be changed. However, at this time, patient is not stable to change these managements. 3. Acute kidney injury due to overdiuresis: Patient will be monitored with serial metabolic panels. 4. Acute metabolic encephalopathy with acute hypercapnic and hypoxic respiratory failure, currently on supplemental oxygen being treated for decompensated heart failure, diastolic dysfunction with preserved ejection fraction. 5. Left scapular pain due to diffuse osteoporosis and osteoarthritis. Physical therapy (PT) and occupational therapy (OT). Toggle pain medications and K-pads. 6. Dyslipidemia: On chronic Lipitor. 7. Obesity complicating care. Body mass index (BMI) 38.2. 8. Chronic neuropathy on Neurontin 100 three times a day. 9. Benign prostatic hypertrophy BPH) on Proscar.
--- NOTE | 2019-02-13 08:04 | IPN ---
CARDIOLOGY PROGRESS NOTE: DATE OF SERVICE: 02/12/2019. Mr. Johnson was examined at bedside in PCU. He reports an increase in his cough and increased phlegm production. He remains on supplemental nasal cannula and he denies any acute events overnight. He continues to endorse hypopnea and is tolerating his diuresis well. He has put out 3.3 liters yesterday. Heart rate is better controlled. Maintaining in 80's to 90's. He denies any chest pain but still is experiencing shortness of breath and increased wheezing today. VITAL SIGNS: Temperature 97.8, pulse 86, respirations 18, blood pressure 138/82, map of 100. Pulse of 95% on 1 liter nasal cannula. He put out a total of 3.3 liters yesterday with a net negative of 1500. His weight per the bed scale documented was 114 kg yesterday down from 119 kg on admission. He is fully alert and oriented times three. Appropriately conversant. No acute distress but taking some shallow breaths with accessory muscle use. His lungs are clear throughout with some wheezing heard in between sentences when he speaks. His jugular venous pulse is mildly elevated and heart rate is well controlled in the 90's on exam with an irregular rhythm. No appreciable murmur, gallops or rubs. Abdomen is soft, obese and nontender. He has minimal lower extremity edema. Mostly in the feet and ankle bilaterally. LABS: White count 12.5, hemoglobin 13.8, platelets 211, sodium and potassium 140 and 4.2, BUN and creatinine 43 and 1.35, magnesium 2.2. ASSESSMENT AND PLAN: Mr. Johnson is a 78-year-old man with acutely decompensated diastolic CHF, most likely induced by his new onset atrial fibrillation. His atrial fib rate is better controlled currently on his Lopressor 25 mg every 6 hours with his heart rate maintaining in the 80's to 90's and patient is asymptomatic. We will likely transition him over to longer acting Beta-delaney today. Continue anticoagulation with Eliquis. Regarding his decompensated CHF, his long status seems to be not too hypervolemic today. Repeat BNP is pending and he diuresed greatly yesterday with over 3 liters. Continue with fluid restriction and salt restriction. His renal function did take a mild bump today with creatinine up to 135 depending on his BNP. We will consider adjusting his diuretics appropriately. Regarding his worsening dyspnea and cough of phlegm production this may be possible aspiration from his recent episode requiring bi-Pap. Chest x-ray was ordered by primary and possibly consider CT, especially in light of his rising white count and I do not suspect that his worsening dyspnea is due to his cardiac status. Additionally he will still require a sleep study and if possible we can move this up from his currently scheduled appointment in late February.
[2019-02-13] MEDS ORDERED: METOPROLOL TART 25 MG TABLET PO ONE ×2 (08:30→10:00)
[2019-02-13] MEDS: ATORVASTATIN 20 MG TAB PO SCH (09:45)
[2019-02-13] MEDS: TAMSULOSIN 0.4 MG CAP PO SCH (09:45)
[2019-02-13] MEDS: APIXABAN 5 MG TAB (ELIQUIS) PO SCH ×2 (09:45→20:48)
[2019-02-13] MEDS: GABAPENTIN 100 MG CAP PO SCH ×3 (09:45→20:48)
[2019-02-13] MEDS: FINASTERIDE 5 MG TAB PO SCH (10:43)
--- NOTE | 2019-02-13 11:31 | IPN ---
DATE: 02/13/2019 Mr. Johnson is examined at bedside in progressive care unit (PCU). He is feeling much better, less short of breath. Still having a cough, but overall feels better. He was noted to get tachycardic into the 130s yesterday with ambulation and was symptomatic with his palpitations, which improved after he was brought back to his room and rested. This morning in bed, he continues to be around 110. No other issues overnight. PHYSICAL EXAM: Vital Signs: Temperature 97.1, pulse 112, respirations 18, blood pressure 150/84, MAP 106, pulse oximetry 96% 1 liter nasal cannula. Per his chart, he had 1180 in, 2895 out with a net negative 1715, and his recorded weight is 109.4 kg, which is significantly down from 119 kg on admission. It is questionable how accurate these weights are. He is sitting up in bed, resting comfortably. No acute distress. Fully alert and oriented and speaking full sentences. He remained on supplemental oxygen without any accessory muscle use. Lungs are clear throughout. No wheezing, rhonchi, or rales. JVP is mildly elevated. Heart rate is borderline tachycardic, irregular rhythm. No appreciable murmur, clicks, or gallops. Abdomen: Soft, nontender, nondistended. He is obese. Trace lower extremity edema in the feet and ankle. No calf tenderness. LABS: White count 9.6, hemoglobin 14, platelets 212. Sodium and potassium 139 and 3.9, BUN and creatinine 42 and 1.27, magnesium 2.2. Repeat BNP is 2389, up from initial BNP a few days ago, which was 2186. ASSESSMENT/PLAN: Mr. Johnson is a 78-year-old male with acutely decompensated diastolic congestive heart failure (CHF), likely secondary to his new onset of atrial fibrillation. His rate is better controlled overall, however, he is still running up into the 130s. He is now attempting ambulation with physical therapy and was symptomatic with palpitations during this episode as well. Will further increase his Lopressor dose. He was previously receiving 25 every 6 hours. We will make it 75 mg twice a day. Regarding his decompensated CHF, he seems to be doing well clinically and less fluid overloaded on exam and seems to be diuresing well, although his BNP, surprisingly, went up form 2100s a few days ago to now around 2400. His renal function is also improved today. Given all of this, he most likely will need continued diuresis and monitored on telemetry and his electrolytes. Continue fluid and salt restriction.
[2019-02-13] MEDS: FUROSEMIDE 100 MG/10 ML VIAL (J1940) IV SCH (12:00)
[2019-02-13] MEDS ORDERED: ACETAMINOPHEN TAB 650MG DOSE (2X325MG) PO PRN (16:30)
[2019-02-13] MEDS: MECLIZINE 12.5 MG TAB PO SCH (20:48)
[2019-02-14] VITALS (21 sets, daily range): BP systolic 105–156; BP diastolic 58–72; O2SAT 88–100
[2019-02-14] MEDS: FUROSEMIDE 100 MG/10 ML VIAL (J1940) IV SCH (00:41)
[2019-02-14] MEDS: LEVALBUTEROL 1.25 MG/0.5 ML CONCENTRATE NEB INH SCH ×7 (03:40→23:59)
[2019-02-14] MEDS: SLF 3 ML SYR IV SCH ×3 (06:17→20:48)
[2019-02-14] MEDS: METOPROLOL TART 25 MG TABLET PO SCH ×2 (06:21→16:33)
[2019-02-14 06:34] LABS: HEMATOCRIT 48.2 % (42.0-52.0); HEMOGLOBIN 15.7 g/dl (13.5-17.5); MEAN CORPUSCULAR HEMOGLOBIN 31.2 pg (27.0-33.0); MEAN CORPUSCULAR HGB CONC 32.6 g/dl (32.0-36.5); MEAN CORPUSCULAR VOLUME 95.6 fl (80.0-96.0); PLATELET COUNT, AUTOMATED 228 10^3/uL (150-450); RED BLOOD COUNT 5.04 10^6/uL (4.30-6.10); WHITE BLOOD COUNT 9.4 10^3/uL (4.0-10.0)
[2019-02-14 06:56] LABS: BLOOD UREA NITROGEN 42 MG/DL (7-18); CALCIUM LEVEL 9.4 MG/DL (8.8-10.2); CARBON DIOXIDE LEVEL 43 MEQ/L (21-32); CHLORIDE LEVEL 91 MEQ/L (98-107); CREATININE FOR GFR 1.36 MG/DL (0.70-1.30); GLOMERULAR FILTRATION RATE 54.1 (>42); GLUCOSE, FASTING 121 MG/DL (70-100); MAGNESIUM LEVEL 2.3 MG/DL (1.8-2.4); POTASSIUM SERUM 4.1 MEQ/L (3.5-5.1); SODIUM LEVEL 137 MEQ/L (136-145)
[2019-02-14] MEDS: ONDANSETRON 4MG/2ML VIAL (J2405) IV PRN (07:12)
[2019-02-14] MEDS: TAMSULOSIN 0.4 MG CAP PO SCH (08:55)
[2019-02-14] MEDS: ATORVASTATIN 20 MG TAB PO SCH (08:57)
[2019-02-14] MEDS: APIXABAN 5 MG TAB (ELIQUIS) PO SCH ×2 (08:57→20:47)
[2019-02-14] MEDS: GABAPENTIN 100 MG CAP PO SCH ×3 (08:58→20:48)
[2019-02-14] MEDS: FINASTERIDE 5 MG TAB PO SCH (08:59)
[2019-02-14] MEDS ORDERED: TORSEMIDE 20 MG TAB PO SCH (09:00)
[2019-02-14 09:07] LABS: CK-MB VALUE MASS < 1.0 NG/ML (<3.6); CPK CREATINE PHOSPHOKINASE 48 U/L (39-308); MB/CK RELATIVE INDEX 2.08 (< OR =4); TROPONIN I < 0.02 NG/ML (< 0.10)
--- NOTE | 2019-02-14 09:35 | IPN ---
DATE: 02/14/2019 Mr. Johnson is examined at bedside and he feels much improved today. He is off of his nasal cannula oxygen. Heart rate is maintained in 90s. He is slightly nauseous this morning, but is otherwise feeling well with his breathing and volume status. PHYSICAL EXAM: Vital: Temperature 97.2, pulse 85, respirations 18, blood pressure 126/65, MAP 85, pulse oximetry 93% on room air. He put out 2.4 liters yesterday with a net negative of 975. As of midnight until this morning he has put out 2.1 liters. His weight is recorded at 107 kg, which is likely not correct given his admission weight was 199 kg and I do not suspect we have diuresed to this extent. He is sitting up in his chair, resting comfortably. No acute distress. Alert and oriented, fully conversant. Breathing room air. No accessory muscle use. Neck is supple without any elevation in JVP. Lungs are clear throughout without any wheezing, rhonchi, or rales. Equal chest rise bilaterally. Heart rhythm is irregular, rate is controlled. No murmurs, clicks, or gallops. Abdomen: Soft, nontender, nondistended. He is obese. There is no lower extremity edema as of today. LABS: WBC 9, hemoglobin 15, platelets 228. Sodium and potassium 137 and 4.1, BUN and creatinine 42 and 1.36, magnesium 2.3. Cardiac marker is pending. ASSESSMENT/PLAN: Mr. Johnson is a 78-year-old male with acutely decompensated congestive heart failure (CHF), likely induced by his new onset of atrial fibrillation. His rate is well controlled on his current regimen. Recommend continuing his Lopressor 75 mg twice a day. His volume status is also significantly improved. He appears euvolemic as of today. Surprisingly though, his BNP went up from and although he is clinically doing well. We have reordered a repeat BNP for tomorrow if he is still in the hospital. In the meanwhile, we will transition him off from IV Lasix to by mouth torsemide 40 mg a day. Monitor his renal function, which has been wavering around creatinine of 1.2 to 1.3. He has been strongly advised to continue with fluid restriction and salt restriction once discharged. From a cardiac standpoint he is doing well. Cardiac markers have been ordered for this morning as well, although we do not suspect it is cardiac related. He may be discharged home if he is otherwise medically doing well as per the primary team and can followup with cardiology in the clinic in February.
--- NOTE | 2019-02-14 11:23 | IPN ---
DATE OF VISIT: 02/13/2019 This is a re-dictation of the 02/13/2019 visit, which I apparently did not save after dictation. The patient had been admitted to the hospitalist service with new onset atrial fibrillation. He had heart failure with preserved ejection fraction, acute kidney injury and encephalopathy from acute hypercapnic hypoxemic renal failure. He was clinically improved, less short of breath and pleased with his progress on 02/13. PHYSICAL EXAMINATION: Vital signs per flow sheet. No jugular venous distention (JVD). Lungs decreased breath sounds, but clear. Heart regular rate and rhythm. Abdomen soft, nontender. 1+ peripheral edema. Labs were reviewed. IMPRESSION: 1. Congestive heart failure (CHF) with preserved ejection fraction. Continue his diuresis. He was having a net diuresis of about 1.5 liters per day. 2. Atrial fibrillation. Rate was mildly elevated, deferred to cardiology for adjustment in medications. 3. Acute kidney injury, improved. He has daily labs ordered.
--- NOTE | 2019-02-14 12:08 | IPN ---
DATE: 02/14/2019 Shalom is seen in the progressive care unit (PCU). 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 We spent some time discussing salt substitutes such as using lemon or lemon zest and he thinks he could "live with that"). He is less short of breath. He is walking. His edema is improved clinically. He has had good progress the last few days. He continued with good diuresis, having about a 1.8 liter diuresis yesterday. PHYSICAL EXAMINATION: Ins/Outs: Negative 1800. 112/68. Pulse 110. Respiratory rate 18. 97% oxygen saturation on room air. General Appearance: He is alert and conversant. No distress. No jugular venous distention (JVD). Lungs: Decreased breath sounds, but clear. Heart: Regular rate and rhythm. Rate around 100. Abdomen: Soft. Nontender. Trace peripheral edema. LABS: Sodium 127, potassium 4.1, BUN 42, creatinine 1.3, glucose 121, white count 9.4, hemoglobin 15, platelets 228. IMPRESSION: 1. Congestive heart failure with preserved ejection fraction. He has been switched from intravenous to by mouth diuretic by the cardiology team. If he is stable tomorrow, will discharge. He needs to maintain salt and fluid restriction. We discussed ways to adjust his cooking to accommodate this. 2. Atrial fibrillation. Rate is still mildly elevated. Cardiology has been adjusting his chronotropic medications. Will defer to them. He is on Eliquis for thromboembolic prophylaxis. 3. Hyperlipidemia. Continue atorvastatin 20 mg daily. 4. BPH. Continue finasteride and Flomax.
[2019-02-14] MEDS: MECLIZINE 12.5 MG TAB PO SCH (20:47)
[2019-02-15] VITALS (9 sets, daily range): BP systolic 124–148; BP diastolic 62–80; O2SAT 89–93
[2019-02-15] MEDS: LEVALBUTEROL 1.25 MG/0.5 ML CONCENTRATE NEB INH SCH ×4 (04:00→15:10)
[2019-02-15] MEDS: METOPROLOL TART 25 MG TABLET PO SCH (05:34)
[2019-02-15] MEDS: SLF 3 ML SYR IV SCH (05:34)
[2019-02-15 05:57] LABS: HEMATOCRIT 49.4 % (42.0-52.0); HEMOGLOBIN 15.5 g/dl (13.5-17.5); MEAN CORPUSCULAR HEMOGLOBIN 30.4 pg (27.0-33.0); MEAN CORPUSCULAR HGB CONC 31.4 g/dl (32.0-36.5); MEAN CORPUSCULAR VOLUME 96.9 fl (80.0-96.0); PLATELET COUNT, AUTOMATED 216 10^3/uL (150-450); WHITE BLOOD COUNT 9.5 10^3/uL (4.0-10.0)
[2019-02-15 06:14] LABS: CREATININE FOR GFR 1.77 MG/DL (0.70-1.30); GLOMERULAR FILTRATION RATE 39.9 (>42); MAGNESIUM LEVEL 2.4 MG/DL (1.8-2.4); POTASSIUM SERUM 4.1 MEQ/L (3.5-5.1)
[2019-02-15] MEDS: GABAPENTIN 100 MG CAP PO SCH (08:05)
[2019-02-15] MEDS: APIXABAN 5 MG TAB (ELIQUIS) PO SCH (08:05)
[2019-02-15] MEDS: ATORVASTATIN 20 MG TAB PO SCH (08:05)
[2019-02-15] MEDS: TAMSULOSIN 0.4 MG CAP PO SCH (08:05)
[2019-02-15] MEDS: FINASTERIDE 5 MG TAB PO SCH (08:06)
[2019-02-15] MEDS ORDERED: METOPROLOL TART 25 MG TABLET PO ONE (09:00)
--- NOTE | 2019-02-15 09:24 | IPN ---
DATE: 02/15/2019 Mr. Johnson is feeling reasonably well as far as the dyspnea is concerned, but he does complain about pain in his ankles. No chest pain. No palpitations. Telemetry monitoring is revealing good control of atrial fibrillation with heart rate around 90 most of the time. Blood pressure was this morning only 100/62. Saturation 93% on room air. Fluid balance yesterday was recorded as negative a liter, even though the output of 2200 was already recorded golf ball inspector, so I am not sure how accurate it is overall. Weight is 107.1 kg. He is alert, oriented and appropriate. His jugular venous pulse (JVP) is not elevated today. Lungs are clear. Heart exam irregularly irregular rhythm, but no murmur or gallop. Abdomen: Soft and obese. He has no edema. Laboratories: CBC is normal, but basic metabolic panel reveals a decline in renal function with creatinine of 1.77 and GFR 40. Glucose is 106. N-terminal proBNP is 1000. ASSESSMENT/PLAN: Mr. Johnson is a 78-year-old man who has from my perspective has a principal problem of atrial fibrillation that is now rate controlled and diastolic congestive heart failure. We did accomplish much better control, but unfortunately he now has a new onset acute renal failure most likely related to over diuresis. I am going to hold his diuretics today. Otherwise, will keep him on the same medications. I am reasonably optimistic that he can be discharged home if not today then tomorrow.
[2019-02-15] MEDS ORDERED: METO75TA PO (10:38)
[2019-02-15] MEDS ORDERED: ELIQ5TAB PO (10:38)
--- NOTE | 2019-02-15 11:31 | DSES ---
DATE OF ADMISSION: 02/09/2019 DATE OF DISCHARGE: 02/15/2019 PRINCIPAL DIAGNOSIS: Atrial fibrillation with rapid ventricular response. SECONDARY DIAGNOSES: 1. Exacerbation of congestive heart failure with preserved ejection fraction. 2. Acute kidney injury secondary to excessive diuresis. 3. Hyperlipidemia. 4. Benign prostatic hypertrophy (BPH). PRIMARY CARE PROVIDER: Dr. Toledo at the [facility] MOBILE PATROL OFFICER: Dr. Carlin CONSULTATIONS: Dr. Carlin HISTORY: Shalom Johnson was admitted with atrial fibrillation with rapid ventricular response as well as exacerbation of congestive heart failure (CHF). For details, please see history and physical from admission. HOSPITAL COURSE: The patient was admitted to a unit bed. Medications were adjusted and he was given diuretics. He had a good diuresis of six liters net diuresis. He became a little prerenal but I think he will re-equilibrate as an outpatient, so he should be safe for discharge. His rate came under better control with adjusting his medications. Heart rate was in the 120-130 range, now it is down around 80-100. He has been walking with physical therapy. They have cleared him for discharge. On the day of discharge, he was resting comfortably. His blood pressure is 140/78, pulse 106, respiratory rate 18, 92% oxygen saturation on room air. In general, he is alert, conversant. There is no jugular venous distention (JVD). His lungs have decreased breath sounds. Heart: Regular rate and rhythm. No murmur. Abdomen is soft and nontender. He has no peripheral edema which is a significant improvement. LABORATORY DATA: Today, sodium is 148, potassium 4.1, BUN 54, creatinine 1.7, baseline creatinine is around 1.3, blood sugar 106, BNP is down to 1000, it was 2300 a few days ago. White count is 9.5, hemoglobin 15.5, platelets 216. DISPOSITION: He is discharged home improved in stable condition. He has a home health nursing referral that we have made. Activity as tolerated. 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 Again, he will followup with Dr. Toledo in a week, Dr. Carlin per his office. His activity is as tolerated. His medications will continue to be: - albuterol two puffs four times a day as needed - atorvastatin 20 mg daily - finasteride 5 mg daily - Breo Ellipta 100/25 one inhalation daily - gabapentin 100 mg three times a day - meclizine 12.5 mg at bedtime as needed - melatonin 6 mg at bedtime - tamsulosin 0.4 mg daily - metoprolol tartrate 75 mg twice a day - Eliquis 5 mg twice a day HIS LISINOPRIL 5 MG DAILY, NAPROXEN 500 MG DAILY, ASPIRIN 81 MG DAILY, AMLODIPINE 5 MG DAILY, VIAGRA 100 MG NEEDED WERE ALL DISCONTINUED ON ADMISSION. He is not being discharged on any diuretic. He was on torsemide 40 mg daily in the hospital which was held by cardiology as the patient had become prerenal. He will need to restart diuretic, probably torsemide 20 mg daily as an outpatient at his followup appointment. He will need a basic metabolic profile (BMP) at his outpatient followup to recheck his renal function as well.
== END 2019-02-15 15:25 | disposition home health service (06) | DRG 308 ==
LOC: M ED 09:53 → M ED INP 11:41 → M MSPAV 14:01 → M ICU 02-10 09:15 → M PCU 02-10 17:01 → M ICU 02-10 23:56 → M PCU 02-11 09:52
PROVIDERS: ADMIT General Practice; ATTEND Family Medicine
DX: I48.91 Unspecified atrial fibrillation (principal); I50.31 Acute diastolic (congestive) heart failure; J96.01 Acute respiratory failure with hypoxia; J96.02 Acute respiratory failure with hypercapnia; G93.41 Metabolic encephalopathy; N17.9 Acute kidney failure, unspecified; M86.4 Chronic osteomyelitis with draining sinus; E66.9 Obesity, unspecified; Z68.38 Body mass index [BMI] 38.0-38.9, adult; G62.9 Polyneuropathy, unspecified; N40.0 Benign prostatic hyperplasia without lower urinary tract symptoms; E78.5 Hyperlipidemia, unspecified; Z79.899 Other long term (current) drug therapy; I11.0 Hypertensive heart disease with heart failure; Z86.73 Personal history of transient ischemic attack (TIA), and cerebral infarction without residual deficits; G47.33 Obstructive sleep apnea (adult) (pediatric); Z85.828 Personal history of other malignant neoplasm of skin; N52.9 Male erectile dysfunction, unspecified; Z96.652 Presence of left artificial knee joint; Z88.0 Allergy status to penicillin; Z88.2 Allergy status to sulfonamides

== ENCOUNTER → 2019-03-07 | Outpatient (REF) | payer MEDICARE ==
[~2019-03-07] MED LIST changes: +ALBU8.5H INH; +AMLO5TAB6 PO; +BREO1INH3 INH; +ELIQ5TAB PO; +LEVOTAB10 PO; +LISI-542 PO; +MECL12.575 PO; +MELA3TAB41 PO; +METO75TA PO
[2019-03-07 10:12] LABS: ALBUMIN 3.4 GM/DL (3.2-5.2); ALT/SGPT 19 U/L (12-78); BILIRUBIN,TOTAL 0.6 MG/DL (0.2-1.0); BLOOD UREA NITROGEN 17 MG/DL (7-18); CALCIUM LEVEL 8.3 MG/DL (8.8-10.2); CARBON DIOXIDE LEVEL 28 MEQ/L (21-32); CHLORIDE LEVEL 108 MEQ/L (98-107); GLOMERULAR FILTRATION RATE > 60.0 (>42); GLUCOSE, FASTING 91 MG/DL (70-100); POTASSIUM SERUM 4.1 MEQ/L (3.5-5.1); SODIUM LEVEL 143 MEQ/L (136-145); TOTAL PROTEIN 6.4 GM/DL (6.4-8.2)
== END ==
LOC: M SFHCPLAZ 08:30
PROVIDERS: ATTEND Family Medicine
DX: N17.9 Acute kidney failure, unspecified (principal)

== ENCOUNTER 2019-04-01 17:03 | Emergency (ER) | payer MEDICARE ==
[~2019-04-01] VITALS: Ht 172.7 cm; Wt 108.7 kg
[~2019-04-01 17:03] MED LIST changes: -MECL12.575 PO; +MECL12.589 PO
[2019-04-01] MEDS ORDERED: ASPIRIN 81 MG CHEW TABLET PO ONE (17:30)
[2019-04-01] MEDS ORDERED: NS 1,000 ML IV ONE (17:30)
[2019-04-01 17:32] LABS: BASO % 0.3 % (0.0-1.0); EOS # 0.1 10^3/uL (0.0-0.5); EOS % 0.6 % (0.0-3.0); HEMATOCRIT 48.8 % (42.0-52.0); HEMOGLOBIN 15.8 g/dl (13.5-17.5); LYMPH # 2.2 10^3/uL (1.5-5.0); LYMPH % 15.6 % (24.0-44.0); MEAN CORPUSCULAR HEMOGLOBIN 30.6 pg (27.0-33.0); MEAN CORPUSCULAR HGB CONC 32.4 g/dl (32.0-36.5); MEAN CORPUSCULAR VOLUME 94.6 fl (80.0-96.0); MONO # 1.3 10^3/uL (0.0-0.8); MONO % 9.2 % (0.0-5.0); NEUTROPHILS # 10.3 10^3/uL (1.5-8.5); NEUTROPHILS % 73.9 % (36.0-66.0); PLATELET COUNT, AUTOMATED 217 10^3/uL (150-450); RED BLOOD COUNT 5.16 10^6/uL (4.30-6.10)
[2019-04-01] MEDS ORDERED: ESOM20CA25 PO (17:35)
[2019-04-01] MEDS ORDERED: BREO1INH3 INH (17:35)
[2019-04-01] MEDS ORDERED: METO100T5 PO (17:35)
[2019-04-01] MEDS ORDERED: TORS20TA2 PO (17:35)
[2019-04-01] MEDS ORDERED: TESS100C PO (17:35)
[2019-04-01] MEDS ORDERED: ACET-683 PO (17:35)
[2019-04-01] MEDS: METOPROLOL 5 MG/5 ML VIAL IV SCH ×6 (17:42→22:10)
[2019-04-01 17:53] LABS: INR 1.39; PARTIAL THROMBOPLASTIN TIME 36.9 SECONDS (25.0-38.4); PROTHROMBIN TIME 16.8 SECONDS (11.8-14.0)
[2019-04-01 18:08] LABS: ALBUMIN 3.9 GM/DL (3.2-5.2); ALT/SGPT 17 U/L (12-78); BILIRUBIN,DIRECT 0.3 MG/DL (0.0-0.2); BILIRUBIN,TOTAL 1.2 MG/DL (0.2-1.0); BLOOD UREA NITROGEN 31 MG/DL (7-18); CALCIUM LEVEL 9.1 MG/DL (8.8-10.2); CARBON DIOXIDE LEVEL 30 MEQ/L (21-32); CHLORIDE LEVEL 100 MEQ/L (98-107); CK-MB VALUE MASS < 1.0 NG/ML (<3.6); CPK CREATINE PHOSPHOKINASE 67 U/L (39-308); CREATININE FOR GFR 1.28 MG/DL (0.70-1.30); FREE T4 1.33 NG/DL (0.76-1.46); GLOMERULAR FILTRATION RATE 57.9 (>42); GLUCOSE, FASTING 109 MG/DL (70-100); LIPASE 80 U/L (73-393); MB/CK RELATIVE INDEX 1.49 (< OR =4); NT-PRO BNP 4804 PG/ML (<450); POTASSIUM SERUM 4.4 MEQ/L (3.5-5.1); SODIUM LEVEL 138 MEQ/L (136-145); THYROID STIMULATING HORMONE 0.395 uIU/ML (0.358-3.740); TOTAL PROTEIN 7.1 GM/DL (6.4-8.2); TROPONIN I 0.04 NG/ML (< 0.10)
[2019-04-01] MEDS ORDERED: METOPROLOL TART 25 MG TABLET PO ONE (18:30)
[2019-04-01] MEDS ORDERED: MORPHINE 2 MG/ML 1ML VIAL (J2270) IV ONE ×2 (18:45→21:00)
[2019-04-01] MEDS ORDERED: IPRATROPIUM 0.5MG/ALBUTEROL 2.5MG INH SOL UD 3ML (DUONEB)(J7620) NEB ONE (18:45)
[2019-04-01] MEDS ORDERED: FUROSEMIDE 40 MG/4 ML VIAL (J1940) IV ONE (19:45)
[2019-04-01 22:10] VITALS: BP 124/67
[2019-04-01 22:17] LABS: CK-MB VALUE MASS < 1.0 NG/ML (<3.6); CPK CREATINE PHOSPHOKINASE 48 U/L (39-308); MB/CK RELATIVE INDEX 2.08 (< OR =4); TROPONIN I 0.04 NG/ML (< 0.10)
[2019-04-01 22:52] VITALS: BP 101/55
--- NOTE | 2019-04-02 07:29 | REP ---
Portable chest, 05:29 p.m., single AP view with the patient upright: Comparison is 2018. There is elevation of the right hemidiaphragm, unchanged. There is minor bibasilar atelectasis, unchanged. Lung winters otherwise clear. Cardiac size is normal. The evelin, mediastinum, and skeletal structures are unremarkable. Impression: Minor bibasilar atelectasis, unchanged. Otherwise, negative portable chest. Electronically Signed by Abdelrahman Dugan MD 04/02/2019 07:20 A
--- NOTE | 2019-04-02 12:25 | ECGEPIP ---
[facility] - ED Test Date: 2019-04-01 Pat Name: GUICHO SUTTON Department: Room: - Gender: Male Medical Territory Manager: SIDDHARTH : 1940 Requested By: Gabriella Cardona Order Number: [id number] Reading MD: Segun Ruffin Measurements Intervals [place] Rate: 147 P: 126 MD: 110 QRS: -39 QRSD: 133 T: -15 QT: 302 QTc: 473 Interpretive Statements ATRIAL FIBRILLATION/FLUTTER WITH RAPID VENTRICULAR RESPONSE LEFT AXIS DEVIATION RIGHT BUNDLE BRANCH BLOCK RATE CHANGE COMPARED TO 02/10/19 Electronically Signed on 04-02-2019 12:25:27 EST by Segun Ruffin
--- NOTE | 2019-04-02 12:30 | ECGEPIP ---
[facility] - ED Test Date: 2019-04-01 Pat Name: GUICHO SUTTON Department: Room: - Gender: Male Wind Turbine Erector: SIDDHARTH : 1940 Requested By: DIANA CASTAÑEDA Order Number: [id number] Reading MD: Segun Ruffin Measurements Intervals [place] Rate: 106 P: 178 NH: 169 QRS: -40 QRSD: 117 T: -3 QT: 356 QTc: 474 Interpretive Statements ATRIAL FIBRILLATION/FLUTTER WITH RAPID VENTRICULAR RESPONSE LEFT AXIS DEVIATION RIGHT BUNDLE BRANCH BLOCK BASELINE ARTIFACT AFFECTS INTERPRETATION SIMILAR TO PRIOR ON SAME DATE Electronically Signed on 04-02-2019 12:30:43 EST by Segun Ruffin
--- NOTE | 2019-04-02 12:32 | ECGEPIP ---
[facility] - ED Test Date: 2019-04-01 Pat Name: GUICHO SUTTON Department: Room: - Gender: Male Mink Slicer: : 1940 Requested By: DIANA CASTAÑEDA Order Number: [id number] Reading MD: Segun Ruffin Measurements Intervals [place] Rate: 53 P: NE: 0 QRS: -85 QRSD: 173 T: 86 QT: 498 QTc: 471 Interpretive Statements ELECTRONIC VENTRICULAR PACEMAKER RHYTHM/RATE CHANGE COMPARED TO PRIOR ON SAME DATE Electronically Signed on 04-02-2019 12:32:55 EST by Segun Ruffin
--- NOTE | 2019-04-04 15:41 | ECGEPIP ---
[facility] - ED Test Date: 2019-04-01 Pat Name: Shalom Johnson Department: Room: 8 Gender: Male Communications Specialist: brandyn : 1940 Requested By: yenny Order Number: [id number] Reading MD: Gabriella Cardona Measurements Intervals [place] Rate: 110 P: [place]: 0 QRS: -44 QRSD: 112 T: -17 QT: 352 QTc: 478 Interpretive Statements ATRIAL FLUTTER/TACHYCARDIA WITH RAPID VENTRICULAR RESPONSE WITH ABERRANT CONDUCTION OR VENTRICULAR PREMATURE COMPLEXES MARKED LEFT AXIS DEVIATION LOW QRS VOLTAGE IN PRECORDIAL LEADS INCOMPLETE RIGHT BUNDLE BRANCH BLOCK MODERATE VOLTAGE CRITERIA FOR LVH, CONSIDER NORMAL VARIANT MODERATE ST DEPRESSION BASELINE ARTIFACT LIMITS INTERPRETATION Electronically Signed on 04-04-2019 14:43:22 EST by Gabriella Cardona
== END 2019-04-01 22:52 | disposition home or self-care (01) ==
LOC: M ED 17:03
DX: I50.9 Heart failure, unspecified (principal); I48.91 Unspecified atrial fibrillation; I11.0 Hypertensive heart disease with heart failure; E78.5 Hyperlipidemia, unspecified; N40.0 Benign prostatic hyperplasia without lower urinary tract symptoms; Z79.899 Other long term (current) drug therapy; Z79.01 Long term (current) use of anticoagulants; Z88.0 Allergy status to penicillin; Z88.1 Allergy status to other antibiotic agents; Z88.2 Allergy status to sulfonamides
CPT/HCPCS: 71045; 80048; 80076; 82550; 82553; 83690; 83880; 84439; 84443; 84484; 85025; 85610; 85730; 93005; 93041; 94640; 94760; 96374; 96375; 96376; 99285; J1940; J2270

== ENCOUNTER 2019-04-04 12:35 | Inpatient (IN) | payer MEDICARE ==
[~2019-04-04] VITALS: Ht 175.3 cm; Wt 107.2 kg
[~2019-04-04 12:35] MED LIST changes: +ACET-683 PO; +ESOM20CA25 PO; +METO100T5 PO; +TESS100C PO; +TORS20TA2 PO
[2019-04-04 13:24] LABS: BASO % 0.4 % (0.0-1.0); EOS # 0.3 10^3/uL (0.0-0.5); EOS % 2.7 % (0.0-3.0); HEMATOCRIT 47.8 % (42.0-52.0); HEMOGLOBIN 14.9 g/dl (13.5-17.5); LYMPH # 1.9 10^3/uL (1.5-5.0); LYMPH % 20.9 % (24.0-44.0); MEAN CORPUSCULAR HEMOGLOBIN 30.3 pg (27.0-33.0); MEAN CORPUSCULAR HGB CONC 31.2 g/dl (32.0-36.5); MEAN CORPUSCULAR VOLUME 97.2 fl (80.0-96.0); MONO # 0.7 10^3/uL (0.0-0.8); MONO % 7.8 % (0.0-5.0); NEUTROPHILS # 6.2 10^3/uL (1.5-8.5); NEUTROPHILS % 67.9 % (36.0-66.0); PLATELET COUNT, AUTOMATED 199 10^3/uL (150-450); RED BLOOD COUNT 4.92 10^6/uL (4.30-6.10); WHITE BLOOD COUNT 9.1 10^3/uL (4.0-10.0)
[2019-04-04] MEDS ORDERED: AMIODARONE HCL 150 MG in IV 1 EA IV STA (13:26)
--- NOTE | 2019-04-04 13:33 | REP ---
Portable chest, 01:11 p.m., single frontal view with the patient upright: Comparisons are 04/02/2019 and 02/12/2019. There is elevation of the right hemidiaphragm. This is unchanged. The bibasilar atelectasis has improved on the left and has resolved on the right. There are no pleural effusions. Cardiac size is normal. The evelin, mediastinum, skeletal structures are unremarkable. Impression: The basilar atelectasis on the left has improved. The basilar atelectasis on the right has resolved. Electronically Signed by Abdelrahman Dugan MD 04/04/2019 01:25 P
[2019-04-04 13:58] LABS: ALT/SGPT 20 U/L (12-78); BILIRUBIN,TOTAL 0.9 MG/DL (0.2-1.0); BLOOD UREA NITROGEN 26 MG/DL (7-18); CALCIUM LEVEL 8.8 MG/DL (8.8-10.2); CARBON DIOXIDE LEVEL 31 MEQ/L (21-32); CHLORIDE LEVEL 104 MEQ/L (98-107); CK-MB VALUE MASS 1.4 NG/ML (<3.6); CPK CREATINE PHOSPHOKINASE 73 U/L (39-308); CREATININE FOR GFR 1.23 MG/DL (0.70-1.30); GLOMERULAR FILTRATION RATE > 60.0 (>42); GLUCOSE, FASTING 108 MG/DL (70-100); MB/CK RELATIVE INDEX 1.92 (< OR =4); POTASSIUM SERUM 4.3 MEQ/L (3.5-5.1); SODIUM LEVEL 140 MEQ/L (136-145)
[2019-04-04 13:59] LABS: ALBUMIN 3.7 GM/DL (3.2-5.2); BILIRUBIN,DIRECT 0.3 MG/DL (0.0-0.2); MAGNESIUM LEVEL 2.2 MG/DL (1.8-2.4); NT-PRO BNP 7742 PG/ML (<450); THYROID STIMULATING HORMONE 0.526 uIU/ML (0.358-3.740); TROPONIN I 0.12 NG/ML (< 0.10)
[2019-04-04 14:01] LABS: INR 1.28; PARTIAL THROMBOPLASTIN TIME 38.5 SECONDS (25.0-38.4); PROTHROMBIN TIME 15.7 SECONDS (11.8-14.0)
--- NOTE | 2019-04-04 15:07 | ECGEPIP ---
[facility] - ED Test Date: 2019-04-04 Pat Name: GUICHO SUTTON Department: Room: - Gender: Male Religious Healer: roula : 1940 Requested By: Segun Randolph Order Number: [id number] Reading MD: Gabriella Cradona Measurements Intervals [place] Rate: 151 P: 269 [place]: 190 QRS: -38 QRSD: 141 T: -28 QT: 310 QTc: 492 Interpretive Statements ECTOPIC ATRIAL TACHYCARDIA, POSSIBLE ATRIAL FLUTTER MARKED LEFT AXIS DEVIATION RIGHT BUNDLE BRANCH BLOCK INCREASED RATE 04/01/19 Electronically Signed on 04-04-2019 15:07:04 EST by Gabriella Cardona
[2019-04-04] MEDS ORDERED: ELIQ5TAB PO (15:22)
[2019-04-04] MEDS ORDERED: TESS100C PO (15:22)
[2019-04-04] MEDS ORDERED: METOPROLOL 5 MG/5 ML VIAL IV STA (15:48)
[2019-04-04] MEDS: GABAPENTIN 100 MG CAP PO SCH ×2 (16:00→20:41)
[2019-04-04] MEDS ORDERED: BENZONATATE 100 MG CAP PO PRN (16:30)
[2019-04-04] MEDS ORDERED: AMIODARONE HCL 360 MG in IV 1 EA IV SCH ×5 (16:30→20:30)
--- NOTE | 2019-04-04 16:49 | HPEPDOC ---
[facility] Medical History & Physical Date of Admission Apr 04, 2019 Date of Service: Apr 04, 2019 Attending Physician: MARCO A AMADOR MD History and Physical CHIEF COMPLAINT: Sent from family therapist's's office for rapid atrial flutter HISTORY OF PRESENT ILLNESS: 79-year-old male with past medical history of coronary artery disease, CHF, atrial fibrillation (on Eliquis), COPD, GERD and BPH was sent from family therapist's's office for rapid atrial flutter. Patient was admitted at [facility] 2 months ago for new onset atrial fibrillation and congestive heart failure, was diuresed and sent home on rate control medication with anticoagulation. Patient presented to the emergency department 4 days ago with chest discomfort and found to have rapid heart rhythm at that time, patient was discharged home with outpatient follow with cardiology. Patient went to cardiology follow-up visit today and was sent here for rapid heart rate. Patient has received amiodarone 150 mg so far, currently in rapid atrial flutter. Patient is otherwise comfortable in bed, denies any significant dyspnea, chest pain, nausea, vomiting, abdominal pain or diarrhea. 10 point review of system is negative except for above PAST MEDICAL HISTORY: 1. Atrial fibrillation. 2. Congestive heart failure. 3. COPD. 4. GERD. 5. BPH. 6. Coronary artery disease PAST SURGICAL HISTORY: 1. Knee arthroscopy. 2. Hand surgery. SOCIAL HISTORY: Never smoker. Social alcohol use. Denies drug use FAMILY HISTORY: Positive for heart disease ALLERGIES: Please see below. HOME MEDICATIONS: Please see below. PHYSICAL EXAMINATION: VITAL SIGNS: Please see below. GENERAL: No distress HEENT: Normocephalic, atraumatic, moist mucous membranes NECK: Supple CARDIOVASCULAR EXAMINATION: Irregularly irregular, tachycardic RESPIRATORY EXAMINATION: Scattered rhonchi, no wheezing ABDOMINAL EXAMINATION: Soft, nontender, nondistended, positive bowel sounds EXTREMITIES: Range of motion intact SKIN: No rash NEUROLOGICAL EXAMINATION: Alert and oriented 3, no focal deficits PSYCHIATRIC EXAMINATION: Calm and cooperative LABORATORY DATA: See below. IMAGING: Chest x-ray without acute pathology MICROBIOLOGY: Please see below. ASSESSMENT: 79-year-old male with multiple medical comorbidities, is being admitted for rapid atrial flutter. PLAN: 1. Atrial flutter. History of atrial fibrillation, has received amiodarone 150 mg in the ED, heart rate remains in the 140s, will complete amiodarone load with 1 mg/m for 6 hours, followed by 0.5 mg/m for 18 hours. Continue metoprolol 100 mg twice a day, case discussed with family therapist (Dr. Carlin), we'll switch Eliquis to Lovenox for now in case patient develops sick sinus syndrome and needs pacemaker. 2. Congestive heart failure. Clinically stable, continue home torsemide and beta delaney. 3. Coronary artery disease. Continue optimal medical management with statin and beta delaney 4. BPH. Continue Flomax and Proscar. 5. COPD Stable, continue home meds 6. GERD. Continue PPI DVT prophylaxis: On full dose Lovenox GI prophylaxis: Home PPI Vital Signs Vital Signs Date Time Temp Pulse Resp B/P (MAP) Pulse Ox O2 Delivery O2 Flow Rate FiO2 04/04/19 16:04 121/75 (90) 04/04/19 16:00 103 95 Room Air 04/04/19 13:37 20 04/04/19 12:35 98.1 Laboratory Data Labs 24H Laboratory Tests 2 04/04/19 12:59: Immature Granulocyte % (Auto) 0.3, Neutrophils (%) (Auto) 67.9H, Lymphocytes (%) (Auto) 20.9L, Monocytes (%) (Auto) 7.8H, Eosinophils (%) (Auto) 2.7, Basophils (%) (Auto) 0.4, Neutrophils # (Auto) 6.2, Lymphocytes # (Auto) 1.9, Monocytes # (Auto) 0.7, Eosinophils # (Auto) 0.3, Basophils # (Auto) 0.0, Nucleated Red Blood Cells % (auto) 0.0, Prothrombin Time 15.7H, Prothromb Time International Ratio 1.28, Activated Partial Thromboplast Time 38.5H, Anion Gap 5L, Glomerular Filtration Rate > 60.0, Calcium Level 8.8, Magnesium Level 2.2, Total Bilirubin 0.9, Direct Bilirubin 0.3H, Aspartate Amino Transf (AST/SGOT) 16, Alanine Aminotransferase (ALT/SGPT) 20, Alkaline Phosphatase 86, Total Creatine Kinase 73, Creatine Kinase MB 1.4, Creatine Kinase MB Relative Index 1.92, Troponin I 0.12H, NQ-Hih-C-Type Natriuretic Peptide 7742H, Total Protein 7.0, Albumin 3.7, Albumin/Globulin Ratio 1.12, Thyroid Stimulating Hormone (TSH) 0.526 CBC/BMP Laboratory Tests 04/04/19 12:59 Home Medications Scheduled Apixaban (Eliquis) 5 Mg Tablet, 5 MG PO BID Atorvastatin Calcium (Atorvastatin Calcium) 20 Mg Tablet, 20 MG PO DAILY Esomeprazole Magnesium (Esomeprazole Magnesium Dr) 20 Mg Capsule.dr, 20 MG PO DAILY Finasteride (Finasteride) 5 Mg Tablet, 5 MG PO DAILY Fluticasone/Vilanterol (Breo Ellipta 200-25 Mcg INH) 1 Each Blst.w.dev, 1 PUFF INH DAILY Gabapentin (Gabapentin) 100 Mg Capsule, 100 MG PO TID Levocetirizine Dihydrochloride (Levocetirizine Dihydrochloride) 5 Mg Tablet, 5 MG PO QHS Meclizine HCl (Meclizine HCl) 12.5 Mg Tablet, 12.5 MG PO QHS Melatonin (Melatonin) 3 Mg Tablet, 3 MG PO QHS TAKES 1-2 TABS Metoprolol Tartrate (Metoprolol Tartrate) 100 Mg Tablet, 100 MG PO BID Tamsulosin HCl (Flomax) 0.4 Mg Capsule, 0.4 MG PO DAILY Torsemide (Torsemide) 20 Mg Tablet, 20 MG PO DAILY Scheduled PRN Acetaminophen (Acetaminophen) 500 Mg Tablet, 500 MG PO TID PRN for PAIN Albuterol Sulfate (Albuterol Sulfate Hfa) 8.5 Gm Hfa.aer.ad, 2 PUFF INH QID PRN for SHORTNESS OF BREATH Benzonatate (Tessalon Perle) 100 Mg Capsule, 100 MG PO TID PRN for COUGH Allergies Coded Allergies: Sulfa (Sulfonamide Antibiotics) (Verified Allergy, Mild, rash, 10/05/18) Penicillins (Verified Allergy, Unknown, 02/09/19) A-FIB/CHADSVASC A-FIB History Current/History of A-Fib/PAF?: Yes Current PO Anticoag Therapy: Yes MARCO A AMADOR MD Apr 04, 2019 16:49
[2019-04-04 17:13] VITALS: BP 138/100
[2019-04-04 19:57] LABS: CK-MB VALUE MASS 1.2 NG/ML (<3.6); MB/CK RELATIVE INDEX 2.26 (< OR =4); TROPONIN I 0.15 NG/ML (< 0.10)
[2019-04-04 20:00] VITALS: BP 120/91
[2019-04-04] MEDS: MECLIZINE 12.5 MG TAB PO SCH (20:41)
[2019-04-04] MEDS: METOPROLOL TARTRATE 100 MG TAB PO SCH (20:42)
[2019-04-04] MEDS: ENOXAPARIN 120 MG/0.8 ML SYR (J1650) SC SCH (21:55)
[2019-04-04 23:59] VITALS: BP 117/57
[2019-04-05 01:06] LABS: CK-MB VALUE MASS 1.1 NG/ML (<3.6); MB/CK RELATIVE INDEX 2.5 (< OR =4); TROPONIN I 0.13 NG/ML (< 0.10)
[2019-04-05] MEDS ORDERED: diphenhydrAMINE 50 MG CAP PO ONE (01:30)
[2019-04-05] MEDS: AMIODARONE HCL 360 MG in IV 1 EA IV SCH ×2 (01:51→14:53)
[2019-04-05 04:00] VITALS: BP 142/78
[2019-04-05 06:04] LABS: HEMATOCRIT 41.5 % (42.0-52.0); HEMOGLOBIN 13.4 g/dl (13.5-17.5); MEAN CORPUSCULAR HEMOGLOBIN 30.9 pg (27.0-33.0); MEAN CORPUSCULAR HGB CONC 32.3 g/dl (32.0-36.5); MEAN CORPUSCULAR VOLUME 95.8 fl (80.0-96.0); PLATELET COUNT, AUTOMATED 168 10^3/uL (150-450); RED BLOOD COUNT 4.33 10^6/uL (4.30-6.10); WHITE BLOOD COUNT 7.1 10^3/uL (4.0-10.0)
[2019-04-05 06:32] LABS: ALT/SGPT 16 U/L (12-78); BILIRUBIN,TOTAL 0.5 MG/DL (0.2-1.0); BLOOD UREA NITROGEN 24 MG/DL (7-18); CALCIUM LEVEL 8.8 MG/DL (8.8-10.2); CARBON DIOXIDE LEVEL 29 MEQ/L (21-32); CHLORIDE LEVEL 106 MEQ/L (98-107); CREATININE FOR GFR 1.07 MG/DL (0.70-1.30); GLOMERULAR FILTRATION RATE > 60.0 (>42); GLUCOSE, FASTING 110 MG/DL (70-100); MAGNESIUM LEVEL 2.2 MG/DL (1.8-2.4); POTASSIUM SERUM 3.9 MEQ/L (3.5-5.1); SODIUM LEVEL 140 MEQ/L (136-145); TOTAL PROTEIN 6.4 GM/DL (6.4-8.2)
[2019-04-05 08:00] VITALS: BP 121/79
--- NOTE | 2019-04-05 08:46 | CR ---
DATE: 04/05/2019 REFERRING PHYSICIAN: Dr. Limon INDICATION: Atrial flutter with rapid ventricular response (RVR). HISTORY OF PRESENT ILLNESS: Mr. Johnson is known to me. He is a 79-year-old male who has had recent admissions for congestive heart failure and atrial fibrillation. His most recent admission was a little more than a month ago. At that time, he was vigorously diuresed and newly diagnosed atrial fibrillation was rate controlled and he was discharged home. He was doing well for a few weeks, but then came to my office for a scheduled followup yesterday. We found him to be in atrial flutter with 2:1 conduction and ventricular rate approximately 150 beats per minute. He was in mild respiratory distress. He was seen in the emergency room approximately a week ago at which point apparently he was again in atrial flutter, but was given IV metoprolol and discharged home, but it is apparent that the effect of the medication did not last very long. Overnight he was receiving IV amiodarone as was the plan per my discussion with emergency room and the attending physician. process lead to fairly pronounced slowing of his heart rate and most of the night he stayed in atrial flutter with 4:1 conduction of ventricular rate around 75-80 beats per minute. There were occasional aberrant beats, but no pauses and no extreme bradycardia. This morning he tells me that he is feeling much better. PAST MEDICAL HISTORY: 1. Atrial fibrillation diagnosed in January 2019. 2. Diastolic congestive heart failure. 3. Chronic obstructive pulmonary artery disease (COPD). 4. Gastroesophageal reflux disease (GERD). 5. Benign prostatic hyperplasia (BPH). 6. There is no history of coronary artery disease. 7. Remote history of transient ischemic attack (TIA). SURGICAL HISTORY: He has several orthopedic procedures that include left knee replacement surgery on his left hallux, bilateral carpal tunnel surgery and spinal surgery and rotator cuff repair and he also had cystoscopy. FAMILY HISTORY: Father of pancreatic cancer. His mother of old age and lived into her mid 90s. 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 He never smoked. Minimal alcohol use. REVIEW OF SYSTEMS: He denies any recent fever, chills, nausea, vomiting, or diarrhea. There has been no chest pain. He has no awareness of palpitations. He denies any syncope or near syncope. There has been no paroxysmal nocturnal dyspnea (PND) or orthopnea, but he has sleep apnea with a CPAP. No peripheral edema. The rest of review of system negative. PHYSICAL EXAMINATION: Mr. Johnson is an elderly man who appears approximately his age, obese, today he appears at no distress and comfortable. Vital signs: Blood pressure 142/78, heart rate has been from usually in 70s and 80s, but occasionally spiking into low 100s, it is atrial flutter with typically 4:1 conduction. Saturation is 93% on room air. Weight was recorded at 108.5 kilograms. He is alert and oriented and appropriate. His jugular venous pulse (JVP) does not appear grossly elevated, but it is difficult to glued wood tester with his body habits. Lungs are clear, good air movement. No wheezing. No crackles or rhonchi. Heart exam reveals irregular rhythm. I do not appreciate any distant gallop, rub or murmur. Abdomen is protuberant, but soft and nontender. There is no significant peripheral edema and peripheral pulses are good quality. Neurologically he is intact. LABORATORY: Hemoglobin 13.4, hematocrit 41.5, platelet count 168,000, basic metabolic panel is normal. He has three sets of cardiac enzymes. His troponin is marginal elevated at 0.12, 0.15, and 0.13. CK and CKMB are negative. Albumin is 3.0. The ECG reveals presence of atrial flutter and bifascicular block. OUTPATIENT MEDICATIONS: Included: - albuterol - Eliquis 5 twice a day - atorvastatin 20 a day - Tessalon Perles - esomeprazole 20 a day - finasteride 5 a day - Breo Ellipta - gabapentin 100 three times a day - meclizine as needed - melatonin 3 mg at night - metoprolol titrate 100 twice a day - tamsulosin 0.4 a day - torsemide 20 mg a day His current medications are essentially unchanged with the exception that he is now receiving amiodarone and Eliquis was replaced by Lovenox. ASSESSMENT AND PLAN: Mr. Johnson is a 79-year-old obese man who has a history of diastolic congestive heart failure probably triggered by atrial fibrillation. His atrial fibrillation was rate controlled on 100 mg twice a day of metoprolol, but he presented with atrial flutter with 2:1 conduction rapid ventricular response in spite of being on high dose metoprolol. His recent echocardiogram during his prior hospitalization revealed severe biatrial enlargement and consequently I am afraid that the jehovah's witness of sinus rhythm is unlikely. Consequently, I will continue administration of amiodarone. We will finish his current intravenous load and then will continue on oral form. We will see how he does with ambulation and if we do not see any extreme kyara or tachycardia he might be able to go home tomorrow. I would continue then with amiodarone use for foreseeable future and after a few weeks we will attempt cardioversion. I talked to the patient about possible complications and one of them is possibility of bradycardia. So far we have not seen any indication that it is sick sinus syndrome, but just in case he would need a pacemaker I am going to continue Lovenox instead of Eliquis during the hospitalization.
[2019-04-05] MEDS ORDERED: NON-FORMULARY 1 EA EA INH SCH (09:00)
[2019-04-05] MEDS: SYMBICORT 160/4.5MCG INHALER 6GM INH SCH ×2 (09:00→19:55)
[2019-04-05] MEDS ORDERED: AMIODARONE 200 MG TAB (PACERONE) PO SCH (09:00)
[2019-04-05] MEDS: FINASTERIDE 5 MG TAB PO SCH (09:08)
[2019-04-05] MEDS: TORSEMIDE 20 MG TAB PO SCH (09:09)
[2019-04-05] MEDS: GABAPENTIN 100 MG CAP PO SCH ×3 (09:09→20:34)
[2019-04-05] MEDS: TAMSULOSIN 0.4 MG CAP PO SCH (09:09)
[2019-04-05] MEDS: PANTOPRAZOLE 40MG TAB (PROTONIX) PO SCH (09:09)
[2019-04-05] MEDS: ATORVASTATIN 20 MG TAB PO SCH (09:16)
[2019-04-05] MEDS: ENOXAPARIN 120 MG/0.8 ML SYR (J1650) SC SCH ×2 (09:17→20:33)
[2019-04-05] MEDS: METOPROLOL TARTRATE 100 MG TAB PO SCH ×2 (09:26→20:33)
[2019-04-05 12:00] VITALS: BP 121/76
[2019-04-05] MEDS: BENZONATATE 100 MG CAP PO SCH ×2 (14:26→20:34)
[2019-04-05] MEDS: ACETAMINOPHEN 500 MG TAB PO PRN (14:26)
--- NOTE | 2019-04-05 14:57 | ECGEPIP ---
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
[2019-04-05 16:00] VITALS: BP 103/59
--- NOTE | 2019-04-05 18:56 | IPNPDOC ---
Date Seen The patient was seen on 04/05/19. Progress Note HISTORY OF PRESENT ILLNESS: 79-year-old male with past medical history of coronary artery disease, CHF, atrial fibrillation (on Eliquis), COPD, GERD and BPH was sent from web services professional's's office for rapid atrial flutter. Patient was admitted at [facility] 2 months ago for new onset atrial fibrillation and congestive heart failure, was diuresed and sent home on rate control medication with anticoagulation. Patient presented to the emergency department 4 days ago with chest discomfort and found to have rapid heart rhythm at that time, patient was discharged home with outpatient follow with cardiology. Patient went to cardiology follow-up visit today and was sent here for rapid heart rate. Patient has received amiodarone 150 mg so far, currently in rapid atrial flutter. Patient is otherwise comfortable in bed, denies any significant dyspnea, chest pain, nausea, vomiting, abdominal pain or diarrhea. 04/05/19 Patient seen the morning, comfortable in chair, reports slight dyspnea due to not getting his pre-of this morning, otherwise no complaints at this time. 10 point review of system is negative except for above PHYSICAL EXAMINATION: VITAL SIGNS: Please see below. GENERAL: No distress HEENT: Normocephalic, atraumatic, moist mucous membranes NECK: Supple CARDIOVASCULAR EXAMINATION: Irregularly irregular RESPIRATORY EXAMINATION: Scattered rhonchi, no wheezing ABDOMINAL EXAMINATION: Soft, nontender, nondistended, positive bowel sounds EXTREMITIES: Range of motion intact SKIN: No rash NEUROLOGICAL EXAMINATION: Alert and oriented 3, no focal deficits PSYCHIATRIC EXAMINATION: Calm and cooperative LABORATORY DATA: See below. IMAGING: Chest x-ray without acute pathology MICROBIOLOGY: Please see below. ASSESSMENT: 79-year-old male with multiple medical comorbidities, is being admitted for rapid atrial flutter. PLAN: 1. Atrial flutter. History of atrial fibrillation, currently completing his IV amiodarone load, ordered to receive 400 mg by mouth twice a day afterwards, continue metoprolol 100 mg twice a day, cardiology following, continue Lovenox for anticoagulation. 2. Congestive heart failure. Clinically stable, continue home torsemide and beta delaney. 3. Coronary artery disease. Continue optimal medical management with statin and beta delaney 4. BPH. Continue Flomax and Proscar. 5. COPD Stable, we'll provide Symbicort while hospitalized. 6. GERD. Continue PPI DVT prophylaxis: On full dose Lovenox GI prophylaxis: Home PPI VS, I&O, 24H, Fishbone Vital Signs/I&O Vital Signs Date Time Temp Pulse Resp B/P (MAP) Pulse Ox O2 Delivery O2 Flow Rate FiO2 04/05/19 16:00 98.4 96 26 103/59 (74) 90 Room Air I&O- Last 24 Hours up to 6 AM 04/05/19 06:00 Intake Total 852 ml Output Total 650 ml Balance 202 ml Laboratory Data 24H LABS Laboratory Tests 2 04/04/19 19:13: Total Creatine Kinase 53, Creatine Kinase MB 1.2, Creatine Kinase MB Relative Index 2.26, Troponin I 0.15#H 04/05/19 00:32: Total Creatine Kinase 44, Creatine Kinase MB 1.1, Creatine Kinase MB Relative Index 2.50, Troponin I 0.13H 04/05/19 05:42: Nucleated Red Blood Cells % (auto) 0.0, Anion Gap 5L, Glomerular Filtration Rate > 60.0, Calcium Level 8.8, Magnesium Level 2.2, Total Bilirubin 0.5, Aspartate Amino Transf (AST/SGOT) 14, Alanine Aminotransferase (ALT/SGPT) 16, Alkaline Phosphatase 69, Total Protein 6.4, Albumin 3.0L, Albumin/Globulin Ratio 0.88L CBC/BMP Laboratory Tests 04/05/19 05:42 MARCO A AMADOR MD Apr 05, 2019 18:56
[2019-04-05 20:00] VITALS: BP 141/83
[2019-04-05] MEDS: MECLIZINE 12.5 MG TAB PO SCH (20:34)
[2019-04-05] MEDS: AMIODARONE 200 MG TAB (PACERONE) PO SCH (20:34)
[2019-04-05 23:59] VITALS: BP 127/70
[2019-04-06 04:00] VITALS: BP 133/74
[2019-04-06 06:01] LABS: HEMOGLOBIN 14.7 g/dl (13.5-17.5); MEAN CORPUSCULAR HEMOGLOBIN 30.1 pg (27.0-33.0); MEAN CORPUSCULAR HGB CONC 30.6 g/dl (32.0-36.5); MEAN CORPUSCULAR VOLUME 98.2 fl (80.0-96.0); PLATELET COUNT, AUTOMATED 189 10^3/uL (150-450); RED BLOOD COUNT 4.89 10^6/uL (4.30-6.10); WHITE BLOOD COUNT 9.5 10^3/uL (4.0-10.0)
[2019-04-06] MEDS: ACETAMINOPHEN 500 MG TAB PO PRN (06:21)
[2019-04-06 06:26] LABS: BLOOD UREA NITROGEN 22 MG/DL (7-18); CALCIUM LEVEL 9.2 MG/DL (8.8-10.2); CARBON DIOXIDE LEVEL 33 MEQ/L (21-32); CHLORIDE LEVEL 103 MEQ/L (98-107); CREATININE FOR GFR 1.23 MG/DL (0.70-1.30); GLOMERULAR FILTRATION RATE > 60.0 (>42); GLUCOSE, FASTING 102 MG/DL (70-100); SODIUM LEVEL 140 MEQ/L (136-145)
[2019-04-06] MEDS: SYMBICORT 160/4.5MCG INHALER 6GM INH SCH ×2 (07:22→19:42)
[2019-04-06 08:00] VITALS: BP 134/76
[2019-04-06] MEDS: BENZONATATE 100 MG CAP PO SCH ×3 (08:00→20:12)
[2019-04-06] MEDS: PANTOPRAZOLE 40MG TAB (PROTONIX) PO SCH (08:00)
[2019-04-06] MEDS: ATORVASTATIN 20 MG TAB PO SCH (08:00)
[2019-04-06] MEDS: TAMSULOSIN 0.4 MG CAP PO SCH (08:00)
[2019-04-06] MEDS: AMIODARONE 200 MG TAB (PACERONE) PO SCH ×3 (08:01→20:16)
[2019-04-06] MEDS: FINASTERIDE 5 MG TAB PO SCH (08:01)
[2019-04-06] MEDS: GABAPENTIN 100 MG CAP PO SCH ×3 (08:01→20:12)
[2019-04-06] MEDS: TORSEMIDE 20 MG TAB PO SCH (08:01)
[2019-04-06] MEDS: METOPROLOL TARTRATE 100 MG TAB PO SCH ×2 (08:01→20:15)
[2019-04-06] MEDS: ENOXAPARIN 120 MG/0.8 ML SYR (J1650) SC SCH ×2 (08:02→20:13)
--- NOTE | 2019-04-06 09:10 | IPN ---
DATE: 04/06/2019 Mr. Johnson seems a little bit discouraged today. His heart rate was well controlled throughout the day yesterday and including last night, but starting this morning around 6:00 a.m. his heart rate accelerated again as he started moving around. He immediately feels short of breath when he has tachycardia or chest pain. Vital signs: Blood pressure 134/76, heart rate is from 80s to 140s. He remains in atrial flutter. Saturation is 94% on room air and he is afebrile. Fluid balance yesterday was recorded as slightly negative. Weight is 107.8. He is alert, oriented and appropriate. His JVP is a little bit up, maybe 3 or 4 cm above the clavicle. Lungs are surprisingly completely clear. I do not appreciate any wheezing or crackles. Heart exam reveals regular tachycardia without gallop or rub. Abdomen is soft. Extremities have trace edema. Laboratory thorpe, basic metabolic panel reveals potassium 4.0, BUN 22, creatinine 1.3 and glucose 102 and CBC remains stable with hemoglobin 14.7, hematocrit 40 and platelet count 189,000. ASSESSMENT/PLAN: Mr. Johnson is a 79-year-old man who has diastolic congestive heart failure and atrial fibrillation that was diagnosed in December,. He was well rate-controlled but then came back to the hospital this time with atrial flutter with a 2:1 conduction and tachycardia. We started him on amiodarone initially IV and rapidly accomplished good rate control, but now he is tachycardic again. I do hope that the effect of the medication is going to kick in quickly. I am going to increase the loading to 400 mg three times a day, I think that we will have to keep monitoring him in the hospital for another day or two until his heart rate is better control with activity. I had a 20-minute discussion with him today regarding his condition, current management and tentative plan. We again went over the possibility of needing pacemaker even though so far I do not see any need for it. I also explained to him that potentially will entertain cardioversion, but my plan would not be to proceed that direction until he is loaded with amiodarone for at least 3-4 weeks.
[2019-04-06] MEDS ORDERED: SLF 3 ML SYR IV PRN (11:45)
[2019-04-06 12:00] VITALS: BP 138/82
[2019-04-06] MEDS: SLF 3 ML SYR IV SCH ×2 (14:58→20:17)
[2019-04-06 16:00] VITALS: BP 132/77
--- NOTE | 2019-04-06 19:18 | IPNPDOC ---
Date Seen The patient was seen on 04/06/19. Progress Note HISTORY OF PRESENT ILLNESS: 79-year-old male with past medical history of coronary artery disease, CHF, atrial fibrillation (on Eliquis), COPD, GERD and BPH was sent from transfer car operator drier's's office for rapid atrial flutter. Patient was admitted at [facility] 2 months ago for new onset atrial fibrillation and congestive heart failure, was diuresed and sent home on rate control medication with anticoagulation. Patient presented to the emergency department 4 days ago with chest discomfort and found to have rapid heart rhythm at that time, patient was discharged home with outpatient follow with cardiology. Patient went to cardiology follow-up visit today and was sent here for rapid heart rate. Patient has received amiodarone 150 mg so far, currently in rapid atrial flutter. Patient is otherwise comfortable in bed, denies any significant dyspnea, chest pain, nausea, vomiting, abdominal pain or diarrhea. 04/05/19 Patient seen the morning, comfortable in chair, reports slight dyspnea due to not getting his pre-of this morning, otherwise no complaints at this time. 04/06/19 Patient seen in the morning, comfortable, feels fatigued today, still having rapid atrial flutter with exertion, no other complaints. 10 point review of system is negative except for above PHYSICAL EXAMINATION: VITAL SIGNS: Please see below. GENERAL: No distress HEENT: Normocephalic, atraumatic, moist mucous membranes NECK: Supple CARDIOVASCULAR EXAMINATION: Irregularly irregular RESPIRATORY EXAMINATION: Scattered rhonchi, no wheezing ABDOMINAL EXAMINATION: Soft, nontender, nondistended, positive bowel sounds EXTREMITIES: Range of motion intact SKIN: No rash NEUROLOGICAL EXAMINATION: Alert and oriented 3, no focal deficits PSYCHIATRIC EXAMINATION: Calm and cooperative LABORATORY DATA: See below. MICROBIOLOGY: Please see below. ASSESSMENT: 79-year-old male with multiple medical comorbidities, is being admitted for rapid atrial flutter. PLAN: 1. Atrial flutter. History of atrial fibrillation, amiodarone increased to 400 mg 3 times a day, continue metoprolol 100 mg twice a day, cardiology following, continue Lovenox 110 mg twice a day for anticoagulation. 2. Congestive heart failure. Clinically stable, continue home torsemide and beta delaney. 3. Coronary artery disease. Continue optimal medical management with statin and beta delaney 4. BPH. Continue Flomax and Proscar. 5. COPD Stable, we'll provide Symbicort while hospitalized. 6. GERD. Continue PPI DVT prophylaxis: On full dose Lovenox GI prophylaxis: Home PPI VS, I&O, 24H, Fishbone Vital Signs/I&O Vital Signs Date Time Temp Pulse Resp B/P (MAP) Pulse Ox O2 Delivery O2 Flow Rate FiO2 04/06/19 16:00 97.6 96 16 132/77 (95) 92 Room Air 04/06/19 07:22 2.0 I&O- Last 24 Hours up to 6 AM 04/06/19 06:00 Intake Total 1170 ml Output Total 1520 ml Balance -350 ml Laboratory Data 24H LABS Laboratory Tests 2 04/06/19 05:38: Nucleated Red Blood Cells % (auto) 0.0, Anion Gap 4L, Glomerular Filtration Rate > 60.0, Calcium Level 9.2, Phosphorus Level 4.0 CBC/BMP Laboratory Tests 04/06/19 05:38 MARCO A AMADOR MD Apr 06, 2019 19:18
[2019-04-06 19:27] VITALS: BP 141/66
[2019-04-06] MEDS: MECLIZINE 12.5 MG TAB PO SCH (20:12)
--- NOTE | 2019-04-06 20:14 | ECGEPIP ---
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
[2019-04-07] VITALS: BP 117/76
[2019-04-07 04:00] VITALS: BP 169/85
[2019-04-07 05:44] LABS: HEMATOCRIT 43.3 % (42.0-52.0); HEMOGLOBIN 13.6 g/dl (13.5-17.5); MEAN CORPUSCULAR HEMOGLOBIN 30.4 pg (27.0-33.0); MEAN CORPUSCULAR HGB CONC 31.4 g/dl (32.0-36.5); MEAN CORPUSCULAR VOLUME 96.9 fl (80.0-96.0); PLATELET COUNT, AUTOMATED 171 10^3/uL (150-450); RED BLOOD COUNT 4.47 10^6/uL (4.30-6.10); WHITE BLOOD COUNT 7.2 10^3/uL (4.0-10.0)
[2019-04-07 06:11] LABS: BLOOD UREA NITROGEN 21 MG/DL (7-18); CALCIUM LEVEL 8.9 MG/DL (8.8-10.2); CARBON DIOXIDE LEVEL 34 MEQ/L (21-32); CHLORIDE LEVEL 104 MEQ/L (98-107); CREATININE FOR GFR 1.14 MG/DL (0.70-1.30); GLOMERULAR FILTRATION RATE > 60.0 (>42); GLUCOSE, FASTING 99 MG/DL (70-100); MAGNESIUM LEVEL 2.2 MG/DL (1.8-2.4); SODIUM LEVEL 141 MEQ/L (136-145)
[2019-04-07] MEDS: SLF 3 ML SYR IV SCH ×2 (06:52→13:11)
[2019-04-07 08:00] VITALS: BP 126/62
[2019-04-07] MEDS: SYMBICORT 160/4.5MCG INHALER 6GM INH SCH (08:34)
[2019-04-07 08:51] VITALS: BP 126/62
[2019-04-07] MEDS: METOPROLOL TARTRATE 100 MG TAB PO SCH (08:51)
[2019-04-07] MEDS: ATORVASTATIN 20 MG TAB PO SCH (08:51)
[2019-04-07] MEDS: AMIODARONE 200 MG TAB (PACERONE) PO SCH (08:51)
[2019-04-07] MEDS: BENZONATATE 100 MG CAP PO SCH (08:51)
[2019-04-07] MEDS: PANTOPRAZOLE 40MG TAB (PROTONIX) PO SCH (08:51)
[2019-04-07] MEDS: TAMSULOSIN 0.4 MG CAP PO SCH (08:51)
[2019-04-07] MEDS: GABAPENTIN 100 MG CAP PO SCH (08:52)
[2019-04-07] MEDS: TORSEMIDE 20 MG TAB PO SCH (08:52)
[2019-04-07] MEDS: ACETAMINOPHEN 500 MG TAB PO PRN (08:52)
[2019-04-07] MEDS: ENOXAPARIN 120 MG/0.8 ML SYR (J1650) SC SCH (08:52)
[2019-04-07] MEDS: FINASTERIDE 5 MG TAB PO SCH (08:53)
[2019-04-07] MEDS ORDERED: AMIO200T PO (11:24)
--- NOTE | 2019-04-07 11:27 | DS.PDOC ---
Discharge Summary General Date of Admission Apr 04, 2019 at 16:18 Date of Discharge 04/07/19 Attending Physician: MARCO A AMADOR MD Discharge Summary PROCEDURES PERFORMED DURING STAY: None. ADMITTING DIAGNOSES: 1. Rapid atrial flutter. DISCHARGE DIAGNOSES: 1. Rapid atrial flutter. COMPLICATIONS/CHIEF COMPLAINT: Atrial Flutter With Rapid Ventricular Response. HISTORY OF PRESENT ILLNESS: 79-year-old male with past medical history of coronary artery disease, atrial fibrillation, CHF, was admitted for rapid atrial flutter. Patient was loaded with IV amiodarone, followed by oral amiodarone. He remained in rapid rhythm yesterday, amiodarone dose was increased from 400 mg twice a day to 3 times a day, rate is appropriate controlled today. Patient is at baseline level of health the morning, comfortable, without any additional complaints, cleared for discharge home by cardiology (discussed with Dr. Prescott). Patient is clinically and hemodynamically stable for discharge and outpatient follow-up. HOSPITAL COURSE: As above. DISCHARGE MEDICATIONS: Please see below. ALLERGIES: Please see below. PHYSICAL EXAMINATION: VITAL SIGNS: Please see below. GENERAL: Obese HEENT: Normocephalic, atraumatic, moist mucous membranes NECK: Supple CARDIOVASCULAR EXAMINATION: Irregularly irregular RESPIRATORY EXAMINATION: Scattered rhonchi, no wheezing ABDOMINAL EXAMINATION: Soft, nontender, nondistended, positive bowel sounds EXTREMITIES: Range of motion intact SKIN: No rash NEUROLOGICAL EXAMINATION: Alert and oriented 3, no focal deficits PSYCHIATRIC EXAMINATION: Calm and cooperative LABORATORY DATA: Please see below. PROGNOSIS: Fair ACTIVITY: As tolerated. DIET: Cardiac DISCHARGE PLAN: Follow-up with veterinary epidemiologist and PCP within 1-2 weeks DISPOSITION: Home. DISCHARGE INSTRUCTIONS: 1. As above. DISCHARGE CONDITION: Stable. TIME SPENT ON DISCHARGE: Greater than 33 minutes. Vital Signs/I&Os Vital Signs Date Time Temp Pulse Resp B/P (MAP) Pulse Ox O2 Delivery O2 Flow Rate FiO2 04/07/19 08:51 89 126/62 04/07/19 04:00 97.4 18 97 Room Air 04/06/19 07:22 2.0 I&O- Last 24 Hours up to 6 AM 04/07/19 05:59 Intake Total 418 ml Output Total 1525 ml Balance -1107 ml Laboratory Data Labs 24H Laboratory Tests 2 04/07/19 05:26: Nucleated Red Blood Cells % (auto) 0.0, Anion Gap 3L, Glomerular Filtration Rate > 60.0, Calcium Level 8.9, Magnesium Level 2.2 CBC/BMP Laboratory Tests 04/07/19 05:26 Discharge Medications Scheduled Amiodarone HCl (Amiodarone HCl) 200 Mg Tablet, 400 MG PO TID Apixaban (Eliquis) 5 Mg Tablet, 5 MG PO BID, (Reported) Atorvastatin Calcium (Atorvastatin Calcium) 20 Mg Tablet, 20 MG PO DAILY, (Reported) Esomeprazole Magnesium (Esomeprazole Magnesium Dr) 20 Mg Capsule.dr, 20 MG PO DAILY, (Reported) Finasteride (Finasteride) 5 Mg Tablet, 5 MG PO DAILY, (Reported) Fluticasone/Vilanterol (Breo Ellipta 200-25 Mcg INH) 1 Each Blst.w.dev, 1 PUFF INH DAILY, (Reported) Gabapentin (Gabapentin) 100 Mg Capsule, 100 MG PO TID, (Reported) Levocetirizine Dihydrochloride (Levocetirizine Dihydrochloride) 5 Mg Tablet, 5 MG PO QHS, (Reported) Meclizine HCl (Meclizine HCl) 12.5 Mg Tablet, 12.5 MG PO QHS, (Reported) Melatonin (Melatonin) 3 Mg Tablet, 3 MG PO QHS, (Reported) TAKES 1-2 TABS Metoprolol Tartrate (Metoprolol Tartrate) 100 Mg Tablet, 100 MG PO BID, (Reported) Tamsulosin HCl (Flomax) 0.4 Mg Capsule, 0.4 MG PO DAILY, (Reported) Torsemide (Torsemide) 20 Mg Tablet, 20 MG PO DAILY, (Reported) Scheduled PRN Acetaminophen (Acetaminophen) 500 Mg Tablet, 500 MG PO TID PRN for PAIN, (Reported) Albuterol Sulfate (Albuterol Sulfate Hfa) 8.5 Gm Hfa.aer.ad, 2 PUFF INH QID PRN for SHORTNESS OF BREATH, (Reported) Benzonatate (Tessalon Perle) 100 Mg Capsule, 100 MG PO TID PRN for COUGH, (Reported) Allergies Coded Allergies: Sulfa (Sulfonamide Antibiotics) (Verified Allergy, Mild, rash, 10/05/18) Penicillins (Verified Allergy, Unknown, 02/09/19) MARCO A AMADOR MD Apr 07, 2019 11:27
== END 2019-04-07 15:05 | disposition home health service (06) | DRG 309 ==
LOC: M ED 12:35 → M ED INP 16:18 → ENRESERV 16:25 → M PCU 17:18
PROVIDERS: ADMIT Internal Medicine; ATTEND Internal Medicine
DX: I48.92 Unspecified atrial flutter (principal); I50.32 Chronic diastolic (congestive) heart failure; J44.9 Chronic obstructive pulmonary disease, unspecified; K21.9 Gastro-esophageal reflux disease without esophagitis; I48.91 Unspecified atrial fibrillation; N40.0 Benign prostatic hyperplasia without lower urinary tract symptoms; I25.10 Atherosclerotic heart disease of native coronary artery without angina pectoris; Z79.01 Long term (current) use of anticoagulants; Z79.899 Other long term (current) drug therapy; Z88.0 Allergy status to penicillin; Z88.2 Allergy status to sulfonamides; Z86.73 Personal history of transient ischemic attack (TIA), and cerebral infarction without residual deficits; Z96.652 Presence of left artificial knee joint

== ENCOUNTER 2019-05-08 05:51 | Day surgery (SDC) | payer MEDICARE ==
[~2019-05-08] VITALS: Ht 175.3 cm; Wt 111.1 kg
[~2019-05-08 05:51] MED LIST changes: +AMIO200T PO; -MELA3TAB41 PO; +MELA3TAB62 PO; +PACE200T PO
[2019-05-08] MEDS ORDERED: LR 1,000 ML IV ONE (06:00)
[2019-05-08] MEDS ORDERED: LIDOCAINE 2% INJ 100 MG/5 ML SDV (FOR ANES.) As Ordered ONE (07:01)
[2019-05-08] MEDS ORDERED: propofoL 200 MG/20 ML VIAL As Ordered ONE (07:01)
--- NOTE | 2019-05-08 07:17 | ECGEPIP ---
[facility] Test Date: 2019-05-08 Pat Name: GUICHO SUTTON Department: Room: - Gender: Male Sales Engagement Manager: THANIA : 1940 Requested By: Cesar Carlin Order Number: [id number] Reading MD: Kaycee Barber Measurements Intervals [place] Rate: 61 P: OR: 0 QRS: -44 QRSD: 108 T: 0 QT: 218 QTc: 221 Interpretive Statements ATRIAL FLUTTER/WITH ABERRANT CONDUCTION OR VENTRICULAR PREMATURE COMPLEXES LEFT AXIS DEVIATION INCOMPLETE RIGHT BUNDLE BRANCH BLOCK NONSPECIFIC ST & T-WAVE ABNORMALITY SIMILAR TO 04/06/19 Electronically Signed on 05-08-2019 7:17:41 EDT by Kaycee Barber
[2019-05-08 08:25] VITALS: BP 118/73
--- NOTE | 2019-05-08 09:48 | ECGEPIP ---
[facility] Test Date: 2019-05-08 Pat Name: GUICHO SUTTON Department: Room: - Gender: Male Facilities Administrator: RF : 1940 Requested By: Cesar Carlin Order Number: [id number] Reading MD: Kaycee Barber Measurements Intervals [place] Rate: 52 P: 32 MD: 209 QRS: -36 QRSD: 118 T: -3 QT: 489 QTc: 456 Interpretive Statements SINUS BRADYCARDIA IST DEGREE BLOCK LEFT AXIS DEVIATION INCOMPLETE RIGHT BUNDLE BRANCH BLOCK PROLONGED QT INTERVAL NEW SINUS RHYTHM RESTORED C/W 05/08/19 EARLIER Electronically Signed on 05-08-2019 9:48:28 EDT by Kaycee Barber
--- NOTE | 2019-05-08 19:57 | RO ---
DATE OF PROCEDURE: 05/08/2019 PREOPERATIVE DIAGNOSIS/PRINCIPAL DIAGNOSIS: Atrial flutter. POSTOPERATIVE DIAGNOSIS: PROCEDURE: Cardioversion. SURGEON: Cesar Carlin MD ANESTHESIOLOGY: Ana Escalante CRNA BRIEF HISTORY: Mr. 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 He has been rate controlled and anticoagulated and on amiodarone, but because there was no conversion to sinus rhythm and patient continues to feel short of breath with fairly mild activity, we decided to proceed with cardioversion in order to establish atrioventricular (AV) synchrony. The nature of the procedure was discussed with the patient on an outpatient basis including alternatives and potential complications. He did sign appropriate consent. I talked to him about it again on the day of the procedure. DESCRIPTION OF PROCEDURE: Procedure was performed in recovery room. The patient presented in fasting condition. After appropriate time-out was taken and all appropriate monitors and defibrillator patches were applied, he was sedated using 70 mg of IV propofol administered by anesthesiology. When appropriate level of sedation was accomplished, he was cardioverted with 200 joules of energy applied in synchronized fashion. It led to scientology of sinus mechanism without post conversion pause even though he was briefly bradycardic after the procedure with heart rate in 40s. But otherwise the procedure was well tolerated and there were no immediate complications. 12-lead ECG is pending at the time of my dictation The patient will be discharged on his chronic medication with the exception of reducing the dose of metoprolol to 50 mg twice a day. We will see him for followup in our office next week. BLAISE
== END 2019-05-08 08:59 | disposition home or self-care (01) ==
LOC: M SDC 05:51
PROVIDERS: ATTEND Internal Medicine Cardiovascular Disease
DX: I48.92 Unspecified atrial flutter (principal); R00.0 Tachycardia, unspecified; I42.9 Cardiomyopathy, unspecified; I50.9 Heart failure, unspecified; I11.0 Hypertensive heart disease with heart failure; R07.9 Chest pain, unspecified; I25.10 Atherosclerotic heart disease of native coronary artery without angina pectoris; E78.00 Pure hypercholesterolemia, unspecified; R60.0 Localized edema; F41.9 Anxiety disorder, unspecified; M19.041 Primary osteoarthritis, right hand; M19.042 Primary osteoarthritis, left hand; M48.00 Spinal stenosis, site unspecified; M51.9 Unspecified thoracic, thoracolumbar and lumbosacral intervertebral disc disorder; G47.30 Sleep apnea, unspecified; N40.0 Benign prostatic hyperplasia without lower urinary tract symptoms; J44.9 Chronic obstructive pulmonary disease, unspecified; Z86.73 Personal history of transient ischemic attack (TIA), and cerebral infarction without residual deficits; Z88.0 Allergy status to penicillin; Z88.2 Allergy status to sulfonamides; Z79.899 Other long term (current) drug therapy; Z79.01 Long term (current) use of anticoagulants; Z79.51 Long term (current) use of inhaled steroids

== ENCOUNTER → 2019-10-08 | Outpatient (REF) | payer MEDICARE ==
[~2019-10-08] MED LIST changes: -AMIO200T PO; +AMIO200T3 PO; +AMLO1TAB24 PO; -AMLO5TAB6 PO; -ASPI81TA85 PO; +ASPI81TA86 PO; +MELA3TAB30 PO; -MELA3TAB62 PO
[2019-11-20 13:43] LABS: BILIRUBIN,TOTAL 0.6 MG/DL (0.2-1.0); CALCIUM LEVEL 9.5 MG/DL (8.8-10.2); CREATININE FOR GFR 1.27 MG/DL (0.70-1.30); GLOMERULAR FILTRATION RATE 58.4 (>42); POTASSIUM SERUM 4.7 MEQ/L (3.5-5.1)
== END ==
LOC: M SFHCPLAZ 10:13
PROVIDERS: ATTEND Student in an Organized Health Care Education/Training Program
DX: I50.33 Acute on chronic diastolic (congestive) heart failure (principal); I65.23 Occlusion and stenosis of bilateral carotid arteries; I48.91 Unspecified atrial fibrillation

== ENCOUNTER → 2019-12-24 | Outpatient (CLI) | payer MEDICARE ==
--- NOTE | 2019-12-24 11:32 | REPPI ---
INDICATION: LUMBER RADICULOPATHY. Chronic back pain, sciatica. COMPARISON: None. TECHNIQUE: Five views of lumbosacral spine performed. FINDINGS: There is no compression fracture. There is slight retrolisthesis of L3 on L2 and L2 on L3. There is slight anterolisthesis of L3 on L4 and L4 on L5. There is moderate diffuse spurring. There is moderate disc space narrowing, subchondral sclerosis and vacuum phenomenon at T12/L3 through L4/5. Spurring and sclerosis is seen diffusely at the posterior facet joints. There is mild curvature of the thoracolumbar spine, convex to the left. The posterior elements are intact. IMPRESSION: Moderate diffuse degenerative changes as discussed above. No compression fracture. <Electronically signed by Abdelrahman Chavez > 12/24/19 [id number]
== END ==
LOC: M PLAIMG 10:09
PROVIDERS: ATTEND Student in an Organized Health Care Education/Training Program
DX: M54.16 Radiculopathy, lumbar region (principal)

== ENCOUNTER → 2020-09-26 | Outpatient (CLI) | payer MEDICARE ==
[~2020-09-26] MED LIST changes: -LISI-542 PO; +LISI-898 PO; +MECL-136 PO; -MECL12.589 PO
[2020-09-26 16:04] LABS: HEMOGLOBIN 13.5 g/dl (13.5-17.5); MEAN CORPUSCULAR HEMOGLOBIN 31.2 pg (27.0-33.0); MEAN CORPUSCULAR HGB CONC 32.1 g/dl (32.0-36.5); PLATELET COUNT, AUTOMATED 203 10^3/uL (150-450); RED BLOOD COUNT 4.33 10^6/uL (4.30-6.10); WHITE BLOOD COUNT 6.9 10^3/uL (4.0-10.0)
[2020-09-26 17:16] LABS: BLOOD UREA NITROGEN 14 MG/DL (7-18); CALCIUM LEVEL 8.5 MG/DL (8.8-10.2); CARBON DIOXIDE LEVEL 31 MEQ/L (21-32); CHLORIDE LEVEL 105 MEQ/L (98-107); CREATININE FOR GFR 0.93 MG/DL (0.70-1.30); GLOMERULAR FILTRATION RATE > 60.0 (>42); GLUCOSE, FASTING 90 MG/DL (70-100); NT-PRO BNP 285 PG/ML (<450); POTASSIUM SERUM 4.4 MEQ/L (3.5-5.1); SODIUM LEVEL 141 MEQ/L (136-145)
== END ==
LOC: M PLALAB 12:41
PROVIDERS: ATTEND Nurse Practitioner Family
DX: I48.91 Unspecified atrial fibrillation (principal); R06.00 Dyspnea, unspecified; I50.32 Chronic diastolic (congestive) heart failure

== ENCOUNTER → 2021-01-06 | Outpatient (CLI) | payer MEDICARE ==
[~2021-01-06] MED LIST changes: -VERA180T3 PO; +VERA180T42 PO
[2021-01-06 10:29] LABS: BASO # 0.1 10^3/uL (0.0-0.2); BASO % 0.7 % (0.0-1.0); EOS # 0.4 10^3/uL (0.0-0.5); EOS % 5.2 % (0.0-3.0); HEMATOCRIT 44.5 % (42.0-52.0); LYMPH # 2.6 10^3/uL (1.5-5.0); LYMPH % 39.1 % (24.0-44.0); MEAN CORPUSCULAR HEMOGLOBIN 30.8 pg (27.0-33.0); MEAN CORPUSCULAR HGB CONC 31.5 g/dl (32.0-36.5); MEAN CORPUSCULAR VOLUME 97.8 fl (80.0-96.0); MONO # 0.6 10^3/uL (0.0-0.8); MONO % 9.5 % (2.0-8.0); NEUTROPHILS # 3.1 10^3/uL (1.5-8.5); NEUTROPHILS % 45.2 % (36.0-66.0); PLATELET COUNT, AUTOMATED 191 10^3/uL (150-450); RED BLOOD COUNT 4.55 10^6/uL (4.30-6.10); WHITE BLOOD COUNT 6.8 10^3/uL (4.0-10.0)
[2021-01-06 12:33] LABS: ALBUMIN 3.6 GM/DL (3.2-5.2); ALT/SGPT 21 U/L (12-78); BILIRUBIN,TOTAL 0.6 MG/DL (0.2-1.0); BLOOD UREA NITROGEN 19 MG/DL (7-18); CALCIUM LEVEL 9.1 MG/DL (8.8-10.2); CARBON DIOXIDE LEVEL 28 MEQ/L (21-32); CHLORIDE LEVEL 104 MEQ/L (98-107); CHOLESTEROL LEVEL 128 MG/DL (<200); CHOLESTEROL RISK RATIO 2.909 (<5); CREATININE FOR GFR 1.02 MG/DL (0.70-1.30); GLOMERULAR FILTRATION RATE > 60.0 (>42); GLUCOSE, FASTING 97 MG/DL (70-100); HDL CHOLESTEROL 44 MG/DL (>40); LDL CHOLESTEROL 66 MG/DL (<100); NON-HDL-C 84 MG/DL; NT-PRO BNP 273 PG/ML (<450); POTASSIUM SERUM 4.7 MEQ/L (3.5-5.1); SODIUM LEVEL 141 MEQ/L (136-145); TOTAL PROTEIN 6.6 GM/DL (6.4-8.2); TRIGLYCERIDES LEVEL 90 MG/DL (<150)
[2021-01-06 15:20] LABS: HEMOGLOBIN A1c 5.6 %
== END ==
LOC: M PLALAB 07:55
PROVIDERS: ATTEND Student in an Organized Health Care Education/Training Program
DX: Z00.00 Encounter for general adult medical examination without abnormal findings (principal); I50.9 Heart failure, unspecified; E78.5 Hyperlipidemia, unspecified

== ENCOUNTER → 2021-02-28 | Outpatient (CLI) | payer MEDICARE ==
--- NOTE | 2021-03-02 20:54 | SLEEPCENT ---
DATE: 02/28/2021 ORDERED BY: RACQUEL GTZ MD Nocturnal polysomnography was performed for evaluation of sleep physiology in this patient with a history of excessive somnolence. Seven hours and 55 minutes of data were reviewed. There were 252.5 minutes of sleep identified. Sleep latency was prolonged at 47 minutes. REM sleep was not achieved. Overall sleep architecture showed poor progression, no REM identified. EKG showed a sinus rhythm with an average heart rate of 75 beats per minute. PVCs were noted. EEG showed coarsening in background. No focal events were seen. There were normal wave forms for wake and sleep stages. There were 442 respiratory events identified of 10 seconds in duration or greater for an apnea-hypopnea index of 105. The events were primarily obstructive. However, 93 mixed and central apneas were also seen. Events were not exclusive to sleep stage nor sleep posture. Arousals from respiratory events occurred 80.1 times per hour, and oxygen desaturations were seen into the 80s. There was some limb activity but limb movement arousal index was only 0.2. IMPRESSION: Very severe obstructive sleep apnea syndrome (G47.33). Apnea-hypopnea index 105. RECOMMENDATION: The patient should be encouraged to return to [facility] at his earliest convenience for pressure therapy. In the interim, alcohol and sedative avoidance should be practiced and caution exercised during the operation of motor vehicles. cc: GARRY Sandoval
== END ==
LOC: M SLEEP 20:00
PROVIDERS: ATTEND Internal Medicine Pulmonary Disease
DX: G47.33 Obstructive sleep apnea (adult) (pediatric) (principal)

== ENCOUNTER 2021-05-13 14:04 | Emergency (ER) | payer MEDICARE ==
[~2021-05-13] VITALS: Ht 175.3 cm; Wt 109.9 kg
[~2021-05-13 14:04] MED LIST changes: -AMIO200T3 PO; +AMIO200T49 PO; -LISI-898 PO; +LISI5TAB11 PO; +OMEP-173 PO; -OMEP-218 PO
[2021-05-13 17:33] LABS: BASO % 0.5 % (0.0-1.0); EOS # 0.2 10^3/uL (0.0-0.5); EOS % 1.8 % (0.0-3.0); HEMATOCRIT 45.9 % (42.0-52.0); HEMOGLOBIN 14.8 g/dl (13.5-17.5); LYMPH # 2.4 10^3/uL (1.5-5.0); LYMPH % 27.6 % (24.0-44.0); MEAN CORPUSCULAR HEMOGLOBIN 31.2 pg (27.0-33.0); MEAN CORPUSCULAR HGB CONC 32.2 g/dl (32.0-36.5); MEAN CORPUSCULAR VOLUME 96.8 fl (80.0-96.0); MONO # 0.7 10^3/uL (0.0-0.8); MONO % 7.8 % (2.0-8.0); NEUTROPHILS # 5.3 10^3/uL (1.5-8.5); NEUTROPHILS % 62.1 % (36.0-66.0); PLATELET COUNT, AUTOMATED 182 10^3/uL (150-450); RED BLOOD COUNT 4.74 10^6/uL (4.30-6.10); WHITE BLOOD COUNT 8.5 10^3/uL (4.0-10.0)
[2021-05-13 17:54] LABS: ALBUMIN 4.2 GM/DL (3.2-5.2); BILIRUBIN,DIRECT 0.3 MG/DL (0.0-0.2); TOTAL PROTEIN 7.3 GM/DL (6.4-8.2)
[2021-05-13] MEDS ORDERED: ONDANSETRON 4MG/2ML VIAL IV ONE (21:50)
[2021-05-13] MEDS ORDERED: NS 1,000 ML IV ONE (21:50)
[2021-05-13] MEDS ORDERED: MORPHINE 4 MG/ML 1ML VIAL/SYRINGE (J2270) IV ONE (21:50)
[2021-05-13] MEDS ORDERED: ISOVUE-370 76% 100ML VIAL As Ordered ONE (22:22)
[2021-05-14 00:22] VITALS: BP 164/81
== END 2021-05-14 01:06 | disposition home or self-care (01) ==
LOC: M ED 14:04
DX: R10.11 Right upper quadrant pain (principal); R10.31 Right lower quadrant pain; I12.9 Hypertensive chronic kidney disease with stage 1 through stage 4 chronic kidney disease, or unspecified chronic kidney disease; N18.9 Chronic kidney disease, unspecified; I50.9 Heart failure, unspecified; J44.9 Chronic obstructive pulmonary disease, unspecified; I48.91 Unspecified atrial fibrillation; E78.5 Hyperlipidemia, unspecified; K21.9 Gastro-esophageal reflux disease without esophagitis; N40.0 Benign prostatic hyperplasia without lower urinary tract symptoms; M51.36 Other intervertebral disc degeneration, lumbar region; M54.30 Sciatica, unspecified side; Z79.899 Other long term (current) drug therapy; Z79.01 Long term (current) use of anticoagulants; Z88.0 Allergy status to penicillin; Z88.1 Allergy status to other antibiotic agents; Z88.2 Allergy status to sulfonamides
CPT/HCPCS: 74177; 76705; 80047; 80076; 83690; 85025; 96361; 96374; 96375; 99284; J2270; J2405; Q9967

== ENCOUNTER 2021-05-14 18:41 | Emergency (ER) | payer MEDICARE ==
[~2021-05-14] VITALS: Ht 172.7 cm; Wt 109.1 kg
[2021-05-14] MEDS ORDERED: GI COCKTAIL 50ML BTL(HYOSCYAMINE/MAALOX/LIDOCAINE VISCOUS)(1:3:1) PO ONE (22:05)
[2021-05-14 22:31] LABS: BASO # 0.1 10^3/uL (0.0-0.2); BASO % 0.6 % (0.0-1.0); EOS # 0.2 10^3/uL (0.0-0.5); EOS % 2.2 % (0.0-3.0); HEMOGLOBIN 13.9 g/dl (13.5-17.5); LYMPH # 2.2 10^3/uL (1.5-5.0); LYMPH % 25.5 % (24.0-44.0); MEAN CORPUSCULAR HEMOGLOBIN 31.4 pg (27.0-33.0); MEAN CORPUSCULAR HGB CONC 32.3 g/dl (32.0-36.5); MEAN CORPUSCULAR VOLUME 97.3 fl (80.0-96.0); MONO # 0.8 10^3/uL (0.0-0.8); MONO % 9.7 % (2.0-8.0); NEUTROPHILS # 5.3 10^3/uL (1.5-8.5); NEUTROPHILS % 61.7 % (36.0-66.0); PLATELET COUNT, AUTOMATED 179 10^3/uL (150-450); RED BLOOD COUNT 4.42 10^6/uL (4.30-6.10); WHITE BLOOD COUNT 8.6 10^3/uL (4.0-10.0)
[2021-05-14 22:56] LABS: CK-MB VALUE MASS 1.7 NG/ML (<3.6); MB/CK RELATIVE INDEX 1.62 (< OR =4)
[2021-05-14 23:05] LABS: ALBUMIN 3.8 GM/DL (3.2-5.2); BILIRUBIN,DIRECT 0.2 MG/DL (0.0-0.2); BILIRUBIN,TOTAL 0.6 MG/DL (0.2-1.0); CALCIUM LEVEL 8.8 MG/DL (8.8-10.2); CREATININE FOR GFR 1.31 MG/DL (0.70-1.30); POTASSIUM SERUM 5.2 MEQ/L (3.5-5.1); THYROID STIMULATING HORMONE 0.687 uIU/ML (0.358-3.740); TOTAL PROTEIN 6.5 GM/DL (6.4-8.2)
[2021-05-14] MEDS ORDERED: NS 500 ML IV ONE (23:40)
[2021-05-14 23:51] LABS: CK-MB VALUE MASS 1.1 NG/ML (<3.6); MB/CK RELATIVE INDEX 1.12 (< OR =4)
[2021-05-15 00:21] VITALS: BP 154/72
== END 2021-05-15 00:33 | disposition home or self-care (01) ==
LOC: M ED 18:41
DX: R10.11 Right upper quadrant pain (principal); R06.02 Shortness of breath; I45.10 Unspecified right bundle-branch block; I11.0 Hypertensive heart disease with heart failure; I50.9 Heart failure, unspecified; J44.9 Chronic obstructive pulmonary disease, unspecified; I48.91 Unspecified atrial fibrillation; N40.0 Benign prostatic hyperplasia without lower urinary tract symptoms; E78.5 Hyperlipidemia, unspecified; K21.9 Gastro-esophageal reflux disease without esophagitis; Z86.718 Personal history of other venous thrombosis and embolism; Z88.0 Allergy status to penicillin; Z88.1 Allergy status to other antibiotic agents; Z88.2 Allergy status to sulfonamides; Z79.899 Other long term (current) drug therapy; Z79.01 Long term (current) use of anticoagulants

== ENCOUNTER → 2021-05-14 | Outpatient (REF) | payer MEDICARE ==
[2021-05-15 10:26] LABS: APPEARANCE, URINE HAZY (CLEAR); BACTERIA, URINE AUTO 1+ (NEGATIVE); BILIRUBIN, URINE AUTO NEGATIVE (NEGATIVE); BLOOD, URINE BLOOD NEGATIVE (NEGATIVE); CALCIUM OXALATE CRYSTALS SMALL; COLOR, URINE YELLOW (YELLOW); GLUCOSE, URINE (UA) AUTO NEGATIVE (NEGATIVE); KETONE, URINE AUTO NEGATIVE (NEGATIVE); LEUKOCYTE ESTERASE, URINE AUTO NEGATIVE (NEGATIVE); MUCUS, URINE SMALL (NEGATIVE); NITRITE, URINE AUTO NEGATIVE (NEGATIVE); PROTEIN, URINE AUTO NEGATIVE (NEGATIVE); RBC, URINE AUTO 1 /HPF (0-3); SPECIFIC GRAVITY URINE AUTO 1.029 (1.002-1.035); SQUAMOUS EPITHELIAL CELL UR AU 0 /HPF (0-6); WBC, URINE AUTO 0 /HPF (0-3)
== END ==
LOC: M SFHCPLAZ 09:55
PROVIDERS: ATTEND Student in an Organized Health Care Education/Training Program
DX: R10.9 Unspecified abdominal pain (principal)

== ENCOUNTER → 2021-05-18 | Outpatient (CLI) | payer MEDICARE | LOC: M WHC 09:29 | PROVIDERS: ATTEND Student in an Organized Health Care Education/Training Program | DX: N28.1 Cyst of kidney, acquired (principal); R10.9 Unspecified abdominal pain ==

== ENCOUNTER 2021-07-06 08:44 | Emergency (ER) | payer MEDICARE, OTHER ==
[~2021-07-06] VITALS: Ht 175.3 cm; Wt 105.5 kg
[2021-07-06] MEDS ORDERED: TORS10TA3 (09:01)
[2021-07-06] MEDS ORDERED: BREO1INH3 PO (09:01)
[2021-07-06 11:15] VITALS: BP 161/81
== END 2021-07-06 11:33 | disposition home or self-care (01) ==
LOC: M ED 08:44
DX: S49.92XA Unspecified injury of left shoulder and upper arm, initial encounter (principal); S29.9XXA Unspecified injury of thorax, initial encounter; W01.0XXA Fall on same level from slipping, tripping and stumbling without subsequent striking against object, initial encounter; Y92.018 Other place in single-family (private) house as the place of occurrence of the external cause; I11.0 Hypertensive heart disease with heart failure; J44.9 Chronic obstructive pulmonary disease, unspecified; I50.9 Heart failure, unspecified; E78.5 Hyperlipidemia, unspecified; F33.9 Major depressive disorder, recurrent, unspecified; F41.9 Anxiety disorder, unspecified; I48.91 Unspecified atrial fibrillation; G47.33 Obstructive sleep apnea (adult) (pediatric); K21.9 Gastro-esophageal reflux disease without esophagitis; M51.9 Unspecified thoracic, thoracolumbar and lumbosacral intervertebral disc disorder; N40.0 Benign prostatic hyperplasia without lower urinary tract symptoms; Z86.73 Personal history of transient ischemic attack (TIA), and cerebral infarction without residual deficits; Z79.899 Other long term (current) drug therapy; Z79.01 Long term (current) use of anticoagulants; Z88.0 Allergy status to penicillin; Z88.1 Allergy status to other antibiotic agents; Z88.2 Allergy status to sulfonamides

== ENCOUNTER 2021-07-20 13:44 | Outpatient (RCR) | payer MEDICARE ==
[~2021-07-20 13:44] MED LIST changes: +BREO1INH3 PO; +TORS10TA3
== END 2021-07-28 ==
LOC: M PT 13:44
PROVIDERS: ATTEND Orthopaedic Surgery Hand Surgery
DX: M25.512 Pain in left shoulder (principal)

== ENCOUNTER → 2021-08-05 | Outpatient (CLI) | payer MEDICARE | LOC: M PLAIMG 11:45 | PROVIDERS: ATTEND Student in an Organized Health Care Education/Training Program | DX: M54.2 Cervicalgia (principal) ==

== ENCOUNTER → 2021-08-27 | Outpatient (RCR) | payer MEDICARE | LOC: M PT 07-29 08:38 | PROVIDERS: ATTEND Orthopaedic Surgery Hand Surgery | DX: M25.512 Pain in left shoulder (principal) ==

== ENCOUNTER → 2021-09-11 | Outpatient (CLI) | payer MEDICARE ==
[2021-09-11 10:57] LABS: BLOOD UREA NITROGEN 15 MG/DL (7-18); CALCIUM LEVEL 9.3 MG/DL (8.8-10.2); CARBON DIOXIDE LEVEL 32 MEQ/L (21-32); CHLORIDE LEVEL 105 MEQ/L (98-107); CREATININE FOR GFR 0.94 MG/DL (0.70-1.30); GLOMERULAR FILTRATION RATE > 60.0 (>35); GLUCOSE, FASTING 102 MG/DL (70-100); SODIUM LEVEL 143 MEQ/L (136-145)
== END ==
LOC: M PLAIMG 08:02
PROVIDERS: ATTEND Student in an Organized Health Care Education/Training Program
DX: R07.89 Other chest pain (principal)

== ENCOUNTER 2021-09-24 10:12 | Outpatient (RCR) | payer MEDICARE | END 2021-09-27 | LOC: M PT 10:12 | PROVIDERS: ATTEND Orthopaedic Surgery Hand Surgery | DX: M25.512 Pain in left shoulder (principal) ==

== ENCOUNTER → 2021-10-02 | Outpatient (CLI) | payer MEDICARE | LOC: M PLAIMG 15:16 | PROVIDERS: ATTEND Orthopaedic Surgery Hand Surgery | DX: M75.122 Complete rotator cuff tear or rupture of left shoulder, not specified as traumatic (principal); M19.012 Primary osteoarthritis, left shoulder ==

== ENCOUNTER 2021-10-26 06:48 | Outpatient (RCR) | payer MEDICARE | END 2021-10-28 | LOC: M PT 06:48 | PROVIDERS: ATTEND Orthopaedic Surgery Hand Surgery | DX: M25.512 Pain in left shoulder (principal) ==

== ENCOUNTER 2021-11-16 06:51 | Outpatient (RCR) | payer MEDICARE | END 2021-11-27 | LOC: M PT 06:51 | PROVIDERS: ATTEND Orthopaedic Surgery Hand Surgery | DX: M25.512 Pain in left shoulder (principal) ==

== ENCOUNTER → 2021-12-13 | Outpatient (CLI) | payer MEDICARE ==
[~2021-12-13] MED LIST changes: +BENZ-18 PO; +D3 +TAB PO; +SILD100T PO; +TRAM50TA2 PO
== END ==
LOC: M LABSMTC 09:25
PROVIDERS: ATTEND Anesthesiology
DX: Z01.812 Encounter for preprocedural laboratory examination (principal); Z11.52 Encounter for screening for COVID-19

== ENCOUNTER 2021-12-16 06:15 | Observation (INO) | payer MEDICARE ==
[2021-12-16] VITALS (7 sets, daily range): BP systolic 94–164; BP diastolic 57–98
[~2021-12-16] VITALS: Ht 177.8 cm; Wt 110.1 kg
[~2021-12-16 06:15] MED LIST changes: -TORS10TA3; +TORS10TA3 PO
[2021-12-16] MEDS ORDERED: fentaNYL 100 MCG/2 ML INJECTION As Ordered ONE ×2 (07:07→07:28)
[2021-12-16] MEDS ORDERED: dexameTHASONE 4 MG/ML 1ML VIAL (J1100 PER 1MG) As Ordered ONE (07:08)
[2021-12-16] MEDS ORDERED: propofoL 200 MG/20 ML VIAL As Ordered ONE (07:08)
[2021-12-16] MEDS ORDERED: ONDANSETRON 4MG 2ML VIAL As Ordered ONE (07:08)
[2021-12-16] MEDS ORDERED: LIDOCAINE 2% 100MG/5ML SDV (FOR ANES.) As Ordered ONE (07:08)
[2021-12-16] MEDS ORDERED: ROCURONIUM BROMIDE 50 MG/5 ML VIAL As Ordered ONE ×2 (07:08→09:57)
[2021-12-16] MEDS ORDERED: SUGAMMADEX SODIUM 500 MG/5 ML VIAL (BRIDION) As Ordered ONE (07:09)
[2021-12-16] MEDS ORDERED: VANCOMYCIN 1000MG/20ML VIAL As Ordered ONE ×2 (07:10→07:46)
[2021-12-16] MEDS ORDERED: TRANEXAMIC ACID 100 MG/ML 10ML VIAL As Ordered ONE (07:10)
[2021-12-16] MEDS ORDERED: LIDOCAINE W/EPINEPHRINE 1% 20ML VIAL As Ordered ONE (07:10)
[2021-12-16] MEDS ORDERED: MIDAZOLAM INJ 2MG/2ML VIAL (J2250 PER 1MG) As Ordered ONE (07:28)
[2021-12-16] MEDS ORDERED: ROPIvacaine 0.5% 30ML INJECTION (J2795 PER 1MG) PN ONE (07:30)
[2021-12-16] MEDS ORDERED: MIDAZOLAM INJ 2MG/2ML VIAL (J2250 PER 1MG) IV PRN (07:30)
[2021-12-16] MEDS ORDERED: dexameTHASONE 10MG/1ML VIAL PRES.FREE (J1100 PER 1MG) PN ONE (07:30)
[2021-12-16] MEDS ORDERED: fentaNYL 100 MCG/2 ML INJECTION IV PRN ×2 (07:30→10:40)
[2021-12-16] MEDS ORDERED: EPINEPHrine INJ 1 MG/ML 1ML AMP PN ONE (07:30)
[2021-12-16] MEDS ORDERED: ceFAZolin 2 GM/D5W 50 ML IV BAG (J0690 PER 500MG) As Ordered ONE (07:32)
[2021-12-16] MEDS: FINASTERIDE 5MG TAB PO SCH (09:00)
[2021-12-16] MEDS ORDERED: MORPHINE 2 MG/ML 1ML VIAL IV PRN (10:40)
[2021-12-16] MEDS ORDERED: oxyCODONE 5MG TAB PO PRN (10:40)
[2021-12-16] MEDS ORDERED: LR 1,000 ML IV SCH (10:40)
[2021-12-16] MEDS ORDERED: ONDANSETRON 4MG 2ML VIAL IV PRN (10:40)
[2021-12-16] MEDS ORDERED: ACETAMINOPHEN TAB 650MG DOSE (2X325MG) PO PRN (11:00)
[2021-12-16] MEDS ORDERED: HYDROmorphone 2 MG TAB PO PRN (11:00)
[2021-12-16] MEDS ORDERED: MORPHINE 4 MG/ML 1ML VIAL/SYRINGE IV PRN (11:00)
[2021-12-16] MEDS ORDERED: PHENYLephrine 500MCG 5ML (100MCG/ML) SYRINGE As Ordered ONE (11:38)
[2021-12-16] MEDS ORDERED: ALBUTEROL 90 MCG/ACT 8GM HFA INHALER INH PRN (11:40)
[2021-12-16] MEDS: KETOROLAC 30 MG/ML 1ML VIAL IV SCH ×2 (12:00→17:09)
[2021-12-16 12:17] LABS: HEMATOCRIT 40.6 % (42.0-52.0); HEMOGLOBIN 13.3 g/dl (13.5-17.5); MEAN CORPUSCULAR HEMOGLOBIN 32.4 pg (27.0-33.0); MEAN CORPUSCULAR HGB CONC 32.8 g/dl (32.0-36.5); PLATELET COUNT, AUTOMATED 166 10^3/uL (150-450); WHITE BLOOD COUNT 8.7 10^3/uL (4.0-10.0)
[2021-12-16 12:32] LABS: INR 1.02; PROTHROMBIN TIME 13.6 SECONDS (12.5-14.5)
[2021-12-16 12:33] LABS: PARTIAL THROMBOPLASTIN TIME 28.7 SECONDS (24.8-34.2)
[2021-12-16 12:53] LABS: ALBUMIN 3.4 GM/DL (3.2-5.2); ALT/SGPT 17 U/L (12-78); BILIRUBIN,TOTAL 0.5 MG/DL (0.2-1.0); BLOOD UREA NITROGEN 18 MG/DL (7-18); CALCIUM LEVEL 8.6 MG/DL (8.8-10.2); CARBON DIOXIDE LEVEL 27 MEQ/L (21-32); CHLORIDE LEVEL 108 MEQ/L (98-107); CREATININE FOR GFR 0.75 MG/DL (0.70-1.30); GLOMERULAR FILTRATION RATE > 60.0 (>35); GLUCOSE, FASTING 126 MG/DL (70-100); POTASSIUM SERUM 4.3 MEQ/L (3.5-5.1); SODIUM LEVEL 140 MEQ/L (136-145); TOTAL PROTEIN 6.1 GM/DL (6.4-8.2)
[2021-12-16] MEDS ORDERED: BREO1INH3 INH (14:25)
[2021-12-16] MEDS ORDERED: HOME MED LIST COMPLETE! XX SCH (14:30)
[2021-12-16] MEDS: CLINDAMYCIN 600 MG in IV 1 EA IV SCH (16:12)
[2021-12-16] MEDS: TAMSULOSIN 0.4 MG CAP PO SCH (20:38)
[2021-12-16] MEDS: BENZONATATE 100MG CAPSULE PO PRN (22:12)
[2021-12-17] MEDS: CLINDAMYCIN 600 MG in IV 1 EA IV SCH ×2 (00:22→08:04)
[2021-12-17] MEDS: KETOROLAC 30 MG/ML 1ML VIAL IV SCH ×2 (00:23→06:38)
[2021-12-17 02:00] VITALS: BP 113/62
[2021-12-17 06:00] VITALS: BP 125/69
[2021-12-17 06:55] LABS: HEMATOCRIT 40.6 % (42.0-52.0); HEMOGLOBIN 12.6 g/dl (13.5-17.5); PLATELET COUNT, AUTOMATED 200 10^3/uL (150-450); RED BLOOD COUNT 3.94 10^6/uL (4.30-6.10); WHITE BLOOD COUNT 15.5 10^3/uL (4.0-10.0)
[2021-12-17 07:43] LABS: ALBUMIN 3.5 GM/DL (3.2-5.2); ALT/SGPT 18 U/L (12-78); BILIRUBIN,TOTAL 0.6 MG/DL (0.2-1.0); BLOOD UREA NITROGEN 24 MG/DL (7-18); CALCIUM LEVEL 8.7 MG/DL (8.8-10.2); CARBON DIOXIDE LEVEL 27 MEQ/L (21-32); CHLORIDE LEVEL 109 MEQ/L (98-107); CREATININE FOR GFR 1.02 MG/DL (0.70-1.30); GLOMERULAR FILTRATION RATE > 60.0 (>35); GLUCOSE, FASTING 126 MG/DL (70-100); POTASSIUM SERUM 4.8 MEQ/L (3.5-5.1); SODIUM LEVEL 142 MEQ/L (136-145); TOTAL PROTEIN 6.2 GM/DL (6.4-8.2)
[2021-12-17] MEDS: FINASTERIDE 5MG TAB PO SCH (08:04)
[2021-12-17] MEDS: MECLIZINE 12.5 MG TAB PO SCH (08:04)
[2021-12-17] MEDS: ATORVASTATIN 20 MG TAB PO SCH (08:04)
[2021-12-17] MEDS: BENZONATATE 100MG CAPSULE PO PRN ×2 (11:33→17:36)
[2021-12-17] MEDS: oxyCODONE 5MG TAB PO PRN ×2 (11:33→20:33)
[2021-12-17] MEDS: ENOXAPARIN 40MG/0.4ML SYRINGE (J1650 PER 10MG) SC SCH (11:33)
[2021-12-17] MEDS ORDERED: IBUPROFEN 600MG TAB PO PRN (12:00)
[2021-12-17] MEDS: TAMSULOSIN 0.4 MG CAP PO SCH (20:34)
[2021-12-17] MEDS ORDERED: TORSEMIDE 10 MG TABLET PO SCH (21:00)
[2021-12-17 22:00] VITALS: BP 134/74
[2021-12-18 06:00] VITALS: BP 131/71
[2021-12-18 07:02] LABS: HEMATOCRIT 35.8 % (42.0-52.0); HEMOGLOBIN 11.3 g/dl (13.5-17.5); MEAN CORPUSCULAR HGB CONC 31.6 g/dl (32.0-36.5); MEAN CORPUSCULAR VOLUME 101.4 fl (80.0-96.0); PLATELET COUNT, AUTOMATED 147 10^3/uL (150-450); RED BLOOD COUNT 3.53 10^6/uL (4.30-6.10); WHITE BLOOD COUNT 10.1 10^3/uL (4.0-10.0)
[2021-12-18] MEDS: oxyCODONE 5MG TAB PO PRN (07:15)
[2021-12-18 07:49] LABS: ALBUMIN 3.1 GM/DL (3.2-5.2); ALT/SGPT 17 U/L (12-78); BILIRUBIN,TOTAL 0.7 MG/DL (0.2-1.0); BLOOD UREA NITROGEN 27 MG/DL (7-18); CALCIUM LEVEL 8.3 MG/DL (8.8-10.2); CARBON DIOXIDE LEVEL 30 MEQ/L (21-32); CHLORIDE LEVEL 107 MEQ/L (98-107); CREATININE FOR GFR 0.92 MG/DL (0.70-1.30); GLOMERULAR FILTRATION RATE > 60.0 (>35); GLUCOSE, FASTING 103 MG/DL (70-100); POTASSIUM SERUM 4.1 MEQ/L (3.5-5.1); SODIUM LEVEL 141 MEQ/L (136-145); TOTAL PROTEIN 5.4 GM/DL (6.4-8.2)
[2021-12-18] MEDS: FINASTERIDE 5MG TAB PO SCH (09:04)
[2021-12-18] MEDS: MECLIZINE 12.5 MG TAB PO SCH (09:05)
[2021-12-18] MEDS: ATORVASTATIN 20 MG TAB PO SCH (09:05)
[2021-12-18] MEDS: ENOXAPARIN 40MG/0.4ML SYRINGE (J1650 PER 10MG) SC SCH (09:06)
== END 2021-12-18 11:15 | disposition home health service (06) ==
LOC: M SDC 06:15 → M MS5PR 06:16
PROVIDERS: ADMIT Internal Medicine; ATTEND Internal Medicine
DX: M12.512 Traumatic arthropathy, left shoulder (principal); I48.0 Paroxysmal atrial fibrillation; I11.0 Hypertensive heart disease with heart failure; I50.30 Unspecified diastolic (congestive) heart failure; E78.5 Hyperlipidemia, unspecified; I25.10 Atherosclerotic heart disease of native coronary artery without angina pectoris; J44.9 Chronic obstructive pulmonary disease, unspecified; N40.0 Benign prostatic hyperplasia without lower urinary tract symptoms; K21.9 Gastro-esophageal reflux disease without esophagitis; N52.9 Male erectile dysfunction, unspecified; G47.33 Obstructive sleep apnea (adult) (pediatric); Z86.73 Personal history of transient ischemic attack (TIA), and cerebral infarction without residual deficits; Z79.899 Other long term (current) drug therapy; Z79.01 Long term (current) use of anticoagulants; Z88.0 Allergy status to penicillin; Z88.2 Allergy status to sulfonamides
CPT/HCPCS: 23472; 36415; 64415; 73020; 80053; 85027; 85610; 85730; 96365; 96372; 96375; 96376; 97161; 97165; 97530; 97535; C1713; C1776; G0378; J1100; J1650; J1885; J2250; J2270; J2370; J2405; J3370

== ENCOUNTER → 2021-12-31 | Outpatient (CLI) | payer MEDICARE | LOC: M SOG 08:03 | PROVIDERS: ATTEND Orthopaedic Surgery Hand Surgery | DX: Z47.1 Aftercare following joint replacement surgery (principal); Z96.612 Presence of left artificial shoulder joint ==

== ENCOUNTER → 2022-01-04 | Outpatient (REF) | payer MEDICARE ==
[2022-01-04 18:56] LABS: APPEARANCE, BODY FLUID TURBID
[2022-01-04 19:09] LABS: CRYSTALS, BODY FLUID NONE SEEN (NONE SEEN); SOURCE, BODY FLUID CRYSTALS LT SHOULDER
== END ==
LOC: M LAB REF 16:36
PROVIDERS: ATTEND Orthopaedic Surgery Hand Surgery
DX: Z47.1 Aftercare following joint replacement surgery (principal)

== ENCOUNTER → 2022-01-12 | Outpatient (CLI) | payer MEDICARE | LOC: M SOG 09:35 | PROVIDERS: ATTEND Orthopaedic Surgery Hand Surgery | DX: Z47.1 Aftercare following joint replacement surgery (principal); Z96.612 Presence of left artificial shoulder joint ==

== ENCOUNTER 2022-02-10 07:32 | Outpatient (RCR) | payer MEDICARE | END 2022-02-27 | LOC: M PT 07:32 | PROVIDERS: ATTEND Orthopaedic Surgery Hand Surgery | DX: Z47.89 Encounter for other orthopedic aftercare (principal); Z98.890 Other specified postprocedural states ==

== ENCOUNTER → 2022-03-09 | Outpatient (CLI) | payer MEDICARE | LOC: M SOG 08:24 | PROVIDERS: ATTEND Orthopaedic Surgery Hand Surgery | DX: Z47.1 Aftercare following joint replacement surgery (principal) ==

== ENCOUNTER → 2022-03-30 | Outpatient (RCR) | payer MEDICARE | LOC: M PT 03-08 10:30 | PROVIDERS: ATTEND Orthopaedic Surgery Hand Surgery | DX: Z47.89 Encounter for other orthopedic aftercare (principal); Z47.1 Aftercare following joint replacement surgery ==

== ENCOUNTER → 2022-04-02 | Outpatient (CLI) | payer MEDICARE | LOC: M CARPUL 08:14 | PROVIDERS: ATTEND Student in an Organized Health Care Education/Training Program | DX: I50.30 Unspecified diastolic (congestive) heart failure (principal); I35.8 Other nonrheumatic aortic valve disorders; I34.81 Nonrheumatic mitral (valve) annulus calcification; I27.22 Pulmonary hypertension due to left heart disease; R01.2 Other cardiac sounds ==

== ENCOUNTER 2022-04-05 07:00 | Outpatient (RCR) | payer MEDICARE | END 2022-04-27 | LOC: M PT 07:00 | PROVIDERS: ATTEND Orthopaedic Surgery Hand Surgery | DX: Z47.1 Aftercare following joint replacement surgery (principal) ==

== ENCOUNTER → 2022-05-05 | Outpatient (CLI) | payer MEDICARE ==
[2022-05-05 11:30] LABS: BASO % 0.5 % (0.0-1.0); EOS # 0.4 10^3/uL (0.0-0.5); EOS % 5.6 % (0.0-3.0); HEMATOCRIT 42.9 % (42.0-52.0); HEMOGLOBIN 13.5 g/dl (13.5-17.5); LYMPH # 2.4 10^3/uL (1.5-5.0); LYMPH % 32.5 % (24.0-44.0); MEAN CORPUSCULAR HEMOGLOBIN 29.6 pg (27.0-33.0); MEAN CORPUSCULAR HGB CONC 31.5 g/dl (32.0-36.5); MEAN CORPUSCULAR VOLUME 94.1 fl (80.0-96.0); MONO # 0.7 10^3/uL (0.0-0.8); MONO % 9.8 % (2.0-8.0); NEUTROPHILS # 3.8 10^3/uL (1.5-8.5); NEUTROPHILS % 51.5 % (36.0-66.0); PLATELET COUNT, AUTOMATED 173 10^3/uL (150-450); RED BLOOD COUNT 4.56 10^6/uL (4.30-6.10); WHITE BLOOD COUNT 7.5 10^3/uL (4.0-10.0)
[2022-05-05 11:39] LABS: HEMOGLOBIN A1c 5.8 % (4.0-6.0)
[2022-05-05 11:42] LABS: ALBUMIN 3.7 G/DL (3.2-5.2); ALKALINE PHOSPHATASE 101 U/L (46-116); ALT/SGPT 15 U/L (7.0-40); AST/SGOT 23 U/L (<34); BILIRUBIN,TOTAL 0.8 MG/DL (0.3-1.2); BLOOD UREA NITROGEN 20 MG/DL (9-23); CALCIUM LEVEL 8.7 MG/DL (8.3-10.6); CARBON DIOXIDE LEVEL 31 MMOL/L (20-31); CHLORIDE LEVEL 104 MMOL/L (98-107); CHOLESTEROL LEVEL 117 MG/DL (<200); CHOLESTEROL RISK RATIO 2.75 (<5); CREATININE FOR GFR 0.87 MG/DL (0.70-1.30); GLOMERULAR FILTRATION RATE > 60.0 (>35); GLUCOSE, FASTING 96 MG/DL (74-106); HDL CHOLESTEROL 42.5 MG/DL (>40); LDL CHOLESTEROL 57.9 MG/DL (<100); NON-HDL-C 75 MG/DL; SODIUM LEVEL 142 MMOL/L (136-145); TOTAL PROTEIN 6.3 G/DL (5.7-8.2); TRIGLYCERIDES LEVEL 83 MG/DL (<150)
== END ==
LOC: M PLALAB 07:05
PROVIDERS: ATTEND Student in an Organized Health Care Education/Training Program
DX: R01.2 Other cardiac sounds (principal); E78.5 Hyperlipidemia, unspecified; I10 Essential (primary) hypertension; Z13.1 Encounter for screening for diabetes mellitus; Z79.899 Other long term (current) drug therapy

== ENCOUNTER → 2022-05-05 | Outpatient (CLI) | payer MEDICARE | LOC: M PLALAB 07:03 | PROVIDERS: ATTEND Urology | DX: Z12.5 Encounter for screening for malignant neoplasm of prostate (principal) | CPT/HCPCS: 36415; G0103 ==

== ENCOUNTER → 2022-08-10 | Outpatient (REF) | payer MEDICARE | LOC: M SFHCPLAZ 14:22 | PROVIDERS: ATTEND Family Medicine | DX: R73.03 Prediabetes (principal) ==

== ENCOUNTER → 2022-11-09 | Outpatient (CLI) | payer MEDICARE | LOC: M SOG 07:53 | PROVIDERS: ATTEND Physician Assistant | DX: M25.812 Other specified joint disorders, left shoulder (principal); Z96.612 Presence of left artificial shoulder joint ==

== ENCOUNTER → 2022-11-09 | Outpatient (CLI) | payer MEDICARE ==
[2022-11-09 14:47] LABS: HEMATOCRIT 40.3 % (42.0-52.0); HEMOGLOBIN 12.9 g/dl (13.5-17.5); MEAN CORPUSCULAR HEMOGLOBIN 31.4 pg (27.0-33.0); MEAN CORPUSCULAR VOLUME 98.1 fl (80.0-96.0); PLATELET COUNT, AUTOMATED 172 10^3/uL (150-450); RED BLOOD COUNT 4.11 10^6/uL (4.30-6.10); WHITE BLOOD COUNT 6.8 10^3/uL (4.0-10.0)
[2022-11-09 14:58] LABS: INR 1.39; PROTHROMBIN TIME 16.7 SECONDS (12.5-14.5)
== END ==
LOC: M PLALAB 11:26
PROVIDERS: ATTEND Orthopaedic Surgery Hand Surgery
DX: M25.812 Other specified joint disorders, left shoulder (principal)

== ENCOUNTER → 2022-11-16 | Outpatient (REF) | payer MEDICARE | LOC: M SFHCPLAZ 17:18 | PROVIDERS: ATTEND Family Medicine | DX: T14.8XXA Other injury of unspecified body region, initial encounter (principal) ==

== ENCOUNTER → 2022-11-18 | Outpatient (CLI) | payer MEDICARE ==
[2022-11-18 18:47] LABS: FERRITIN 112.2 NG/ML (10.5-307.3)
== END ==
LOC: M PLALAB 14:42
PROVIDERS: ATTEND Student in an Organized Health Care Education/Training Program
DX: T14.8XXA Other injury of unspecified body region, initial encounter (principal); Z79.899 Other long term (current) drug therapy

== ENCOUNTER → 2022-12-07 | Outpatient (CLI) | payer MEDICARE ==
[2022-12-07 07:47] LABS: IONIZED CALCIUM 4.7 MG/DL (4.5-5.3)
[2022-12-07 08:04] LABS: BASO % 0.7 % (0.0-1.0); EOS # 0.2 10^3/uL (0.0-0.5); EOS % 3.5 % (0.0-3.0); HEMATOCRIT 42.4 % (42.0-52.0); HEMOGLOBIN 13.8 g/dl (13.5-17.5); LYMPH # 2.1 10^3/uL (1.5-5.0); LYMPH % 36.3 % (24.0-44.0); MEAN CORPUSCULAR HEMOGLOBIN 31.8 pg (27.0-33.0); MEAN CORPUSCULAR HGB CONC 32.5 g/dl (32.0-36.5); MEAN CORPUSCULAR VOLUME 97.7 fl (80.0-96.0); MONO # 0.4 10^3/uL (0.0-0.8); MONO % 7.3 % (2.0-8.0); PLATELET COUNT, AUTOMATED 184 10^3/uL (150-450); RED BLOOD COUNT 4.34 10^6/uL (4.30-6.10); WHITE BLOOD COUNT 5.8 10^3/uL (4.0-10.0)
[2022-12-07 08:23] LABS: C REACTIVE PROTEIN QUANTITATIV < 0.40 MG/DL (<1.0)
[2022-12-07 08:25] LABS: ALKALINE PHOSPHATASE 95 U/L (46-116); ALT/SGPT 17 U/L (7.0-40); AST/SGOT 20 U/L (<34); BILIRUBIN,TOTAL 0.7 MG/DL (0.3-1.2); BLOOD UREA NITROGEN 14 MG/DL (9-23); CALCIUM LEVEL 8.9 MG/DL (8.3-10.6); CARBON DIOXIDE LEVEL 29 MMOL/L (20-31); CHLORIDE LEVEL 106 MMOL/L (98-107); CREATININE FOR GFR 0.81 MG/DL (0.70-1.30); GLOMERULAR FILTRATION RATE > 60.0 (>35); GLUCOSE, FASTING 109 MG/DL (74-106); POTASSIUM SERUM 4.2 MMOL/L (3.5-5.1); SODIUM LEVEL 140 MMOL/L (136-145); TOTAL PROTEIN 6.3 G/DL (5.7-8.2)
[2022-12-07 08:27] LABS: FREE T4 1.03 NG/DL (0.89-1.76); THYROID STIMULATING HORMONE 1.318 uIU/ML (0.55-4.78)
[2022-12-07 08:31] LABS: HEMOGLOBIN A1c 5.1 % (4.0-6.0)
[2022-12-07 08:42] LABS: ERYTHROCYTE SEDIMENTATION RATE 19 mm/hr (0-20)
[2022-12-07 09:05] LABS: HEPATITIS C VIRUS ABY INDEX 0.04 INDEX (<0.8)
[2022-12-07 17:05] LABS: ALBUMIN 3.6 G/DL (3.2-5.2)
== END ==
LOC: M LAB 07:20
PROVIDERS: ATTEND Student in an Organized Health Care Education/Training Program
DX: R63.4 Abnormal weight loss (principal); Z79.899 Other long term (current) drug therapy
CPT/HCPCS: 36415; 80053; 82330; 83036; 84439; 84443; 85025; 85652; 86140; 86803; G0103

== ENCOUNTER → 2022-12-14 | Outpatient (CLI) | payer MEDICARE | LOC: M WHC 08:12 | PROVIDERS: ATTEND Family Medicine | DX: Z53.9 Procedure and treatment not carried out, unspecified reason (principal); R63.4 Abnormal weight loss ==

== ENCOUNTER → 2022-12-14 | Outpatient (CLI) | payer MEDICARE | LOC: M WHC 12:24 | PROVIDERS: ATTEND Student in an Organized Health Care Education/Training Program | DX: R63.4 Abnormal weight loss (principal); N62 Hypertrophy of breast | CPT/HCPCS: 77066; G0279 ==

== ENCOUNTER → 2022-12-21 | Outpatient (REF) | payer MEDICARE | LOC: M SFHCPLAZ 15:12 | PROVIDERS: ATTEND Family Medicine | DX: N63.10 Unspecified lump in the right breast, unspecified quadrant (principal) ==

== ENCOUNTER → 2022-12-27 | Outpatient (CLI) | payer MEDICARE ==
[2022-12-27 11:39] LABS: ESTRADIOL 32.5 PG/ML (<39.8); LUTEINIZING HORMONE 32.1 mIU/ML (3.1-34.6)
[2022-12-28 16:09] LABS: HCG SERUM TUMOR MARKER QUANT < 1 mIU/mL (0-3); TESTOSTERONE FREE (DIRECT) 2.8 pg/mL (6.6-18.1)
== END ==
LOC: M PLALAB 08:37
PROVIDERS: ATTEND Student in an Organized Health Care Education/Training Program
DX: N63.10 Unspecified lump in the right breast, unspecified quadrant (principal)

== ENCOUNTER → 2022-12-27 | Outpatient (REF) | payer MEDICARE | LOC: M SFHCPLAZ 08:54 | PROVIDERS: ATTEND Family Medicine | DX: Z53.9 Procedure and treatment not carried out, unspecified reason (principal) ==

== ENCOUNTER → 2023-02-02 | Outpatient (REF) | payer MEDICARE ==
[2023-02-02 17:55] LABS: APPEARANCE, URINE CLEAR (CLEAR); BACTERIA, URINE AUTO NEGATIVE (NEGATIVE); BILIRUBIN, URINE AUTO NEGATIVE (NEGATIVE); BLOOD, URINE BLOOD NEGATIVE (NEGATIVE); COLOR, URINE YELLOW (YELLOW); GLUCOSE, URINE (UA) AUTO NEGATIVE (NEGATIVE); KETONE, URINE AUTO NEGATIVE (NEGATIVE); LEUKOCYTE ESTERASE, URINE AUTO NEGATIVE (NEGATIVE); MUCUS, URINE SMALL (NEGATIVE); NITRITE, URINE AUTO NEGATIVE (NEGATIVE); PROTEIN, URINE AUTO NEGATIVE (NEGATIVE); RBC, URINE AUTO 0 /HPF (0-3); SQUAMOUS EPITHELIAL CELL UR AU 0 /HPF (0-6); UROBILINOGEN, URINE AUTO 0.2 mg/dL (0.0-2.0); WBC, URINE AUTO 0 /HPF (0-3)
== END ==
LOC: M SFHCPLAZ 11:08
PROVIDERS: ATTEND Student in an Organized Health Care Education/Training Program
DX: R82.998 Other abnormal findings in urine (principal)

== ENCOUNTER 2023-02-25 15:45 | Emergency (ER) | payer MEDICARE ==
[~2023-02-25] VITALS: Ht 175.3 cm; Wt 101.2 kg
[2023-02-25] MEDS ORDERED: ELIQ5TAB PO (16:06)
[2023-02-25] MEDS ORDERED: DICL20GE TP (16:06)
[2023-02-25] MEDS ORDERED: B-12100020 PO (16:06)
[2023-02-25] MEDS ORDERED: ROSU20TA61 PO (16:06)
[2023-02-25 17:25] LABS: BASO % 0.4 % (0.0-1.0); EOS # 0.1 10^3/uL (0.0-0.5); EOS % 1.4 % (0.0-3.0); HEMATOCRIT 42.9 % (42.0-52.0); LYMPH # 2.2 10^3/uL (1.5-5.0); LYMPH % 24.7 % (24.0-44.0); MEAN CORPUSCULAR HEMOGLOBIN 31.4 pg (27.0-33.0); MEAN CORPUSCULAR HGB CONC 32.6 g/dl (32.0-36.5); MEAN CORPUSCULAR VOLUME 96.2 fl (80.0-96.0); MONO # 0.8 10^3/uL (0.0-0.8); MONO % 8.6 % (2.0-8.0); NEUTROPHILS # 5.9 10^3/uL (1.5-8.5); NEUTROPHILS % 64.7 % (36.0-66.0); PLATELET COUNT, AUTOMATED 229 10^3/uL (150-450); RED BLOOD COUNT 4.46 10^6/uL (4.30-6.10); WHITE BLOOD COUNT 9.1 10^3/uL (4.0-10.0)
[2023-02-25 18:03] LABS: ALBUMIN 3.4 G/DL (3.2-5.2); ALKALINE PHOSPHATASE 101 U/L (46-116); ALT/SGPT 10 U/L (7.0-40); AST/SGOT 22 U/L (<34); BILIRUBIN,DIRECT 0.2 MG/DL (<0.4); BILIRUBIN,TOTAL 0.6 MG/DL (0.3-1.2); BLOOD UREA NITROGEN 17 MG/DL (9-23); CALCIUM LEVEL 8.8 MG/DL (8.3-10.6); CARBON DIOXIDE LEVEL 30 MMOL/L (20-31); CHLORIDE LEVEL 104 MMOL/L (98-107); CK-MB VALUE MASS 1.3 NG/ML (<3.6); GLOMERULAR FILTRATION RATE > 60.0 (>35); GLUCOSE, FASTING 96 MG/DL (74-106); POTASSIUM SERUM 4.1 MMOL/L (3.5-5.1); SODIUM LEVEL 141 MMOL/L (136-145); TOTAL PROTEIN 6.2 G/DL (5.7-8.2)
[2023-02-25] MEDS: METOPROLOL 5 MG/5 ML VIAL IV SCH ×3 (18:04→19:14)
[2023-02-25 18:09] LABS: CPK CREATINE PHOSPHOKINASE 72 U/L (46-171)
[2023-02-25] MEDS ORDERED: ISOVUE-370 76% 100ML VIAL As Ordered ONE (18:22)
[2023-02-25] MEDS ORDERED: ASPIRIN 81MG CHEW TABLET PO ONE (18:30)
[2023-02-25] MEDS ORDERED: METOPROLOL TART 25 MG TABLET PO ONE (18:35)
[2023-02-25 18:50] LABS: CK-MB VALUE MASS 1.8 NG/ML (<3.6)
[2023-02-25 19:14] VITALS: BP 126/61
[2023-02-25] MEDS ORDERED: HEPARIN SOD (PORCINE) 5000UNITS/ML 1ML VIAL/SYRINGE IV PRN (20:25)
[2023-02-25] MEDS ORDERED: HEPARIN SOD (PORCINE) 5000UNITS/ML 1ML VIAL/SYRINGE IV ONE (20:25)
[2023-02-25] MEDS ORDERED: HEPARIN DRIP 25,000 UNITS in IV 1 EA IV SCH (20:25)
[2023-02-25 21:30] LABS: INR 1.29; PARTIAL THROMBOPLASTIN TIME 36.4 SECONDS (24.8-34.2); PROTHROMBIN TIME 15.7 SECONDS (12.5-14.5)
[2023-02-26 07:45] VITALS: BP 171/85; TEMP 95.5; O2SAT 96
[2023-02-26] MEDS ORDERED: METOPROLOL TART 25 MG TABLET PO SCH (09:00)
== END 2023-02-26 16:07 | disposition short-term general hospital (02) ==
LOC: M ED 15:45
DX: I21.4 Non-ST elevation (NSTEMI) myocardial infarction (principal); I48.91 Unspecified atrial fibrillation; I10 Essential (primary) hypertension; E78.5 Hyperlipidemia, unspecified; G47.33 Obstructive sleep apnea (adult) (pediatric); Z88.0 Allergy status to penicillin; Z88.2 Allergy status to sulfonamides; Z79.51 Long term (current) use of inhaled steroids; Z79.899 Other long term (current) drug therapy; Z79.01 Long term (current) use of anticoagulants
CPT/HCPCS: 71045; 71275; 80048; 80076; 82550; 82553; 83880; 84484; 85025; 85610; 85730; 87486; 87581; 87633; 87798; 93005; 93041; 94760; 96365; 96366; 96375; 99285; Q9967

== ENCOUNTER → 2023-03-31 | Outpatient (CLI) | payer MEDICARE ==
[~2023-03-31] MED LIST changes: +B-12100020 PO; +DICL20GE TP; +ROSU20TA61 PO
== END ==
LOC: M SOG 09:49
PROVIDERS: ATTEND Orthopaedic Surgery Hand Surgery
DX: Z47.1 Aftercare following joint replacement surgery (principal); M25.812 Other specified joint disorders, left shoulder

== ENCOUNTER → 2023-06-23 | Outpatient (CLI) | payer BC, MEDICARE ==
[2023-06-23 13:41] LABS: HEMATOCRIT 44.5 % (42.0-52.0); HEMOGLOBIN 14.2 g/dl (13.5-17.5); MEAN CORPUSCULAR HEMOGLOBIN 31.4 pg (27.0-33.0); MEAN CORPUSCULAR HGB CONC 31.9 g/dl (32.0-36.5); MEAN CORPUSCULAR VOLUME 98.5 fl (80.0-96.0); PLATELET COUNT, AUTOMATED 167 10^3/uL (150-450); RED BLOOD COUNT 4.52 10^6/uL (4.30-6.10); WHITE BLOOD COUNT 7.3 10^3/uL (4.0-10.0)
[2023-06-23 14:12] LABS: HEMOGLOBIN A1c 5.6 % (4.0-6.0)
[2023-06-23 14:44] LABS: ALBUMIN 3.7 G/DL (3.2-5.2); ALKALINE PHOSPHATASE 94 U/L (46-116); ALT/SGPT 14 U/L (7.0-40); AST/SGOT 18 U/L (<34); BILIRUBIN,TOTAL 0.7 MG/DL (0.3-1.2); BLOOD UREA NITROGEN 20 MG/DL (9-23); CARBON DIOXIDE LEVEL 33 MMOL/L (20-31); CHLORIDE LEVEL 103 MMOL/L (98-107); CREATININE FOR GFR 0.97 MG/DL (0.70-1.30); GLOMERULAR FILTRATION RATE > 60.0 (>35); GLUCOSE, FASTING 94 MG/DL (74-106); POTASSIUM SERUM 4.1 MMOL/L (3.5-5.1); SODIUM LEVEL 142 MMOL/L (136-145); TOTAL PROTEIN 6.2 G/DL (5.7-8.2)
== END ==
LOC: M PLALAB 10:47
PROVIDERS: ATTEND Student in an Organized Health Care Education/Training Program
DX: I95.9 Hypotension, unspecified (principal); M54.16 Radiculopathy, lumbar region; R35.0 Frequency of micturition; Z79.899 Other long term (current) drug therapy

== ENCOUNTER → 2023-09-13 | Outpatient (CLI) | payer MEDICARE | LOC: M SOG 14:27 | PROVIDERS: ATTEND Orthopaedic Surgery Hand Surgery | DX: M25.512 Pain in left shoulder (principal); Z96.612 Presence of left artificial shoulder joint ==

== ENCOUNTER → 2023-12-19 | Outpatient (CLI) | payer MEDICARE ==
[~2023-12-19] MED LIST changes: -ROSU20TA61 PO; +ROSU20TA86 PO
[2023-12-19 11:15] LABS: BASO % 0.5 % (0.0-1.0); EOS # 0.3 10^3/uL (0.0-0.5); EOS % 4.8 % (0.0-3.0); HEMATOCRIT 42.9 % (42.0-52.0); HEMOGLOBIN 13.6 g/dl (13.5-17.5); LYMPH # 1.9 10^3/uL (1.5-5.0); LYMPH % 33.3 % (24.0-44.0); MEAN CORPUSCULAR HEMOGLOBIN 31.1 pg (27.0-33.0); MEAN CORPUSCULAR HGB CONC 31.7 g/dl (32.0-36.5); MEAN CORPUSCULAR VOLUME 98.2 fl (80.0-96.0); MONO # 0.5 10^3/uL (0.0-0.8); MONO % 8.9 % (2.0-8.0); NEUTROPHILS % 52.3 % (36.0-66.0); PLATELET COUNT, AUTOMATED 150 10^3/uL (150-450); RED BLOOD COUNT 4.37 10^6/uL (4.30-6.10); WHITE BLOOD COUNT 5.8 10^3/uL (4.0-10.0)
[2023-12-19 11:22] LABS: ALBUMIN 3.5 G/DL (3.2-5.2); ALKALINE PHOSPHATASE 96 U/L (46-116); ALT/SGPT 10 U/L (7.0-40); AST/SGOT 14 U/L (<34); BILIRUBIN,TOTAL 0.6 MG/DL (0.3-1.2); BLOOD UREA NITROGEN 23 MG/DL (9-23); CALCIUM LEVEL 9.8 MG/DL (8.3-10.6); CARBON DIOXIDE LEVEL 33 MMOL/L (20-31); CHLORIDE LEVEL 106 MMOL/L (98-107); CHOLESTEROL LEVEL 98 MG/DL (<200); CHOLESTEROL RISK RATIO 3.22 (<5); CREATININE FOR GFR 1.14 MG/DL (0.70-1.30); GLOMERULAR FILTRATION RATE > 60.0 (>35); GLUCOSE, FASTING 92 MG/DL (74-106); HDL CHOLESTEROL 30.4 MG/DL (>40); LDL CHOLESTEROL 43.2 MG/DL (<100); NON-HDL-C 67.6 MG/DL; POTASSIUM SERUM 3.9 MMOL/L (3.5-5.1); SODIUM LEVEL 145 MMOL/L (136-145); TOTAL PROTEIN 6.4 G/DL (5.7-8.2); TRIGLYCERIDES LEVEL 122 MG/DL (<150)
[2023-12-19 11:24] LABS: FREE T4 1.39 NG/DL (0.89-1.76)
[2023-12-19 11:30] LABS: HEMOGLOBIN A1c 5.6 % (4.0-6.0)
== END ==
LOC: M PLALAB 08:06
PROVIDERS: ATTEND Family Medicine
DX: I48.91 Unspecified atrial fibrillation (principal); E04.1 Nontoxic single thyroid nodule; Z13.1 Encounter for screening for diabetes mellitus; E78.5 Hyperlipidemia, unspecified

== ENCOUNTER → 2023-12-21 | Outpatient (CLI) | payer MEDICARE | LOC: M WHC 11:17 | DX: I83.813 Varicose veins of bilateral lower extremities with pain (principal); Z53.9 Procedure and treatment not carried out, unspecified reason ==

== ENCOUNTER → 2023-12-27 | Outpatient (CLI) | payer MEDICARE | LOC: M RAD 12:06 | PROVIDERS: ATTEND Student in an Organized Health Care Education/Training Program | DX: E04.1 Nontoxic single thyroid nodule (principal) ==

== ENCOUNTER 2023-12-28 09:07 | Outpatient (RCR) | payer MEDICARE | END 2023-12-29 | LOC: M PT 09:07 | PROVIDERS: ATTEND Student in an Organized Health Care Education/Training Program | DX: M54.16 Radiculopathy, lumbar region (principal) ==

== ENCOUNTER 2024-01-02 10:19 | Outpatient (RCR) | payer MEDICARE | END 2024-01-28 | LOC: M PT 10:19 | PROVIDERS: ATTEND Student in an Organized Health Care Education/Training Program | DX: M54.16 Radiculopathy, lumbar region (principal) ==

== ENCOUNTER → 2024-01-09 | Outpatient (CLI) | payer MEDICARE | LOC: M PLALAB 15:12 | PROVIDERS: ATTEND Nurse Practitioner Acute Care | DX: I48.0 Paroxysmal atrial fibrillation (principal) ==

== ENCOUNTER → 2024-01-10 | Outpatient (CLI) | payer MEDICARE ==
[~2024-01-10] MED LIST changes: +LIDOCAINE 1% MDV 20ML VIAL As Ordered ONE
[2024-01-10 14:20] VITALS: TEMP 100
[2024-01-10 14:43] VITALS: BP 141/78; O2SAT 94
== END ==
LOC: M IRPRO 13:44
DX: E04.1 Nontoxic single thyroid nodule (principal)

== ENCOUNTER → 2024-04-02 | Outpatient (CLI) | payer MEDICARE ==
[~2024-04-02] MED LIST changes: -LIDOCAINE 1% MDV 20ML VIAL As Ordered ONE
== END ==
LOC: M RAD 12:10
DX: I83.813 Varicose veins of bilateral lower extremities with pain (principal)

== ENCOUNTER → 2024-04-10 | Outpatient (REF) | payer MEDICARE | LOC: M SFHCPLAZ 19:43 | PROVIDERS: ATTEND Family Medicine | DX: M54.41 Lumbago with sciatica, right side (principal); J44.9 Chronic obstructive pulmonary disease, unspecified; I50.32 Chronic diastolic (congestive) heart failure; Z13.1 Encounter for screening for diabetes mellitus; E78.5 Hyperlipidemia, unspecified ==

== ENCOUNTER → 2024-05-17 | Outpatient (CLI) | payer MEDICARE | LOC: M RAD 11:26 | DX: I83.813 Varicose veins of bilateral lower extremities with pain (principal) ==

== ENCOUNTER → 2024-06-11 | Outpatient (REF) | payer MEDICARE | LOC: M SFHCPLAZ 06:37 | PROVIDERS: ATTEND Student in an Organized Health Care Education/Training Program | DX: Z53.9 Procedure and treatment not carried out, unspecified reason (principal) ==

== ENCOUNTER → 2024-07-04 | Outpatient (CLI) | payer MEDICARE ==
[~2024-07-04] MED LIST changes: +AMLO-751 PO; -AMLO10TA PO; -FLOM0.4C39 PO; +TAMS-18 PO
[2024-07-04 15:31] LABS: BASO # 0.1 10^3/uL (0.0-0.2); BASO % 0.7 % (0.0-1.0); EOS # 0.3 10^3/uL (0.0-0.5); EOS % 3.7 % (0.0-3.0); HEMATOCRIT 44.1 % (42.0-52.0); HEMOGLOBIN 13.9 g/dl (13.5-17.5); LYMPH # 2.6 10^3/uL (1.5-5.0); LYMPH % 36.9 % (24.0-44.0); MEAN CORPUSCULAR HEMOGLOBIN 30.7 pg (27.0-33.0); MEAN CORPUSCULAR HGB CONC 31.5 g/dl (32.0-36.5); MEAN CORPUSCULAR VOLUME 97.4 fl (80.0-96.0); MONO # 0.6 10^3/uL (0.0-0.8); NEUTROPHILS # 3.5 10^3/uL (1.5-8.5); NEUTROPHILS % 49.4 % (36.0-66.0); PLATELET COUNT, AUTOMATED 167 10^3/uL (150-450); RED BLOOD COUNT 4.53 10^6/uL (4.30-6.10)
[2024-07-04 15:55] LABS: ALBUMIN 3.6 G/DL (3.2-5.2); BILIRUBIN,TOTAL 0.7 MG/DL (0.3-1.2); CALCIUM LEVEL 8.9 MG/DL (8.3-10.6); CREATININE FOR GFR 1.09 MG/DL (0.70-1.30); GLOMERULAR FILTRATION RATE 67.3 (>35); POTASSIUM SERUM 4.2 MMOL/L (3.5-5.1); TOTAL PROTEIN 6.6 G/DL (5.7-8.2)
== END ==
LOC: M PLALAB 13:19
DX: I50.32 Chronic diastolic (congestive) heart failure (principal)

== ENCOUNTER 2024-10-23 18:12 | Observation (INO) | payer MEDICARE, OTHER ==
[~2024-10-23] VITALS: Ht 177.8 cm; Wt 103.3 kg
[~2024-10-23 18:12] MED LIST changes: -AMIO200T49 PO; +AMIO200T54 PO
[2024-10-23 22:24] LABS: BASO # 0.0 10^3/uL (0.0-0.2); BASO % 0.5 % (0.0-1.0); EOS # 0.2 10^3/uL (0.0-0.5); EOS % 2.6 % (0.0-3.0); LYMPH # 2.2 10^3/uL (1.5-5.0); LYMPH % 24.7 % (24.0-44.0); MONO # 0.9 10^3/uL (0.0-0.8); MONO % 10.1 % (2.0-8.0); NEUTROPHILS # 5.5 10^3/uL (1.5-8.5); NEUTROPHILS % 61.9 % (36.0-66.0); PLATELET COUNT, AUTOMATED 166 10^3/uL (150-450)
[2024-10-23 22:47] LABS: CALCIUM LEVEL 9.0 MG/DL (8.3-10.6); CARBON DIOXIDE LEVEL 32.0 MMOL/L (20-31); CHLORIDE LEVEL 102.0 MMOL/L (98-107); CK-MB VALUE MASS 1.7 NG/ML (<3.6); CREATININE FOR GFR 1.06 MG/DL (0.70-1.30); GLOMERULAR FILTRATION RATE 69.6 (>35); MAGNESIUM LEVEL 2.1 MG/DL (1.8-2.4); POTASSIUM SERUM 4.3 MMOL/L (3.5-5.1); SODIUM LEVEL 143.0 MMOL/L (136-145)
[2024-10-23 22:55] LABS: CPK CREATINE PHOSPHOKINASE 65.0 U/L (46-171); MB/CK RELATIVE INDEX 2.61 (< OR =4)
[2024-10-24 00:40] VITALS: BP 114/57
[2024-10-24] MEDS: TAMSULOSIN 0.4 MG CAP PO ONE (00:40)
[2024-10-24] MEDS: TORSEMIDE 10 MG TABLET PO STA (00:40)
[2024-10-24] MEDS: APIXABAN 5 MG TAB PO ONE (00:41)
[2024-10-24] MEDS: traMADol 50 MG TAB PO ONE (00:41)
[2024-10-24 02:06] LABS: ESTIMATED AVERAGE GLUCOSE 120.0 MG/DL (60-110)
[2024-10-24 02:07] LABS: ALT/SGPT 10.0 U/L (7.0-40); AST/SGOT 21.0 U/L (<34)
[2024-10-24] MEDS ORDERED: ACETAMINOPHEN 325 MG TAB PO PRN (02:45)
[2024-10-24] MEDS ORDERED: traMADol 50 MG TAB PO PRN (02:45)
[2024-10-24 03:08] VITALS: BP 127/82; TEMP 98.1; O2SAT 98
[2024-10-24 03:53] LABS: KETONE, URINE AUTO RFX NEGATIVE (NEGATIVE); LEUKOCYTE ESTERASE UR AUTO RFX NEGATIVE (NEGATIVE); MUCUS, URINE RFX SMALL (NEGATIVE); NITRITE, URINE AUTO RFX NEGATIVE (NEGATIVE); RBC, URINE AUTO RFX 1 /HPF (0-3); SQUAM EPITHELIAL CELL UR AURFX 0 /HPF (0-6); WBC, URINE AUTO RFX 1 /HPF (0-3)
[2024-10-24 04:06] LABS: PLATELET COUNT, AUTOMATED 153 10^3/uL (150-450)
[2024-10-24 04:23] LABS: INR 1.47
[2024-10-24 04:47] LABS: ALT/SGPT 10.0 U/L (7.0-40); AST/SGOT 24.0 U/L (<34); CALCIUM LEVEL 9.0 MG/DL (8.3-10.6); CARBON DIOXIDE LEVEL 32.0 MMOL/L (20-31); CHLORIDE LEVEL 103.0 MMOL/L (98-107); CREATININE FOR GFR 1.08 MG/DL (0.70-1.30); GLOMERULAR FILTRATION RATE 68.1 (>35); MAGNESIUM LEVEL 2.0 MG/DL (1.8-2.4); POTASSIUM SERUM 4.2 MMOL/L (3.5-5.1); SODIUM LEVEL 145.0 MMOL/L (136-145)
[2024-10-24 09:15] VITALS: BP 108/65; TEMP 97.7; O2SAT 97
[2024-10-24] MEDS: PANTOPRAZOLE 40MG VIAL IV SCH (09:17)
[2024-10-24] MEDS: ACETAMINOPHEN 500 MG TAB PO SCH (09:17)
[2024-10-24] MEDS ORDERED: HOME MED LIST COMPLETE! XX SCH (09:40)
[2024-10-24] MEDS ORDERED: METO1TAB33 PO (09:40)
[2024-10-24] MEDS ORDERED: MECL-86 PO (09:40)
[2024-10-24] MEDS: APIXABAN 5 MG TAB PO SCH (11:52)
[2024-10-24 11:54] VITALS: BP 122/70; TEMP 97; O2SAT 98
[2024-10-24] MEDS: FUROSEMIDE 40 MG/4 ML VIAL IV ONE (12:32)
[2024-10-24] MEDS ORDERED: ACET-683 PO (12:41)
[2024-10-24] MEDS ORDERED: SYMBICORT 160/4.5MCG INHALER 6GM INH SCH (20:00)
== END 2024-10-24 14:50 | disposition home or self-care (01) ==
LOC: M ED 18:12 → M ED INP 18:13 → M MS4PR 10-24 02:52
PROVIDERS: ADMIT Student in an Organized Health Care Education/Training Program; ATTEND Internal Medicine Nephrology
DX: R55 Syncope and collapse (principal); S92.515A Nondisplaced fracture of proximal phalanx of left lesser toe(s), initial encounter for closed fracture; M25.512 Pain in left shoulder; M25.522 Pain in left elbow; W22.09XA Striking against other stationary object, initial encounter; Y92.001 Dining room of unspecified non-institutional (private) residence as the place of occurrence of the external cause; I48.19 Other persistent atrial fibrillation; I50.32 Chronic diastolic (congestive) heart failure; I11.0 Hypertensive heart disease with heart failure; E87.70 Fluid overload, unspecified; I34.0 Nonrheumatic mitral (valve) insufficiency; I37.1 Nonrheumatic pulmonary valve insufficiency; I65.23 Occlusion and stenosis of bilateral carotid arteries; I25.10 Atherosclerotic heart disease of native coronary artery without angina pectoris; I25.2 Old myocardial infarction; E78.5 Hyperlipidemia, unspecified; G47.33 Obstructive sleep apnea (adult) (pediatric); Z86.73 Personal history of transient ischemic attack (TIA), and cerebral infarction without residual deficits; N40.0 Benign prostatic hyperplasia without lower urinary tract symptoms; K21.9 Gastro-esophageal reflux disease without esophagitis; M19.90 Unspecified osteoarthritis, unspecified site; M48.061 Spinal stenosis, lumbar region without neurogenic claudication; M51.369 Other intervertebral disc degeneration, lumbar region without mention of lumbar back pain or lower extremity pain; I27.20 Pulmonary hypertension, unspecified; Z96.652 Presence of left artificial knee joint; Z98.890 Other specified postprocedural states; Z82.49 Family history of ischemic heart disease and other diseases of the circulatory system; Z88.0 Allergy status to penicillin; Z88.2 Allergy status to sulfonamides; Z79.899 Other long term (current) drug therapy; Z79.01 Long term (current) use of anticoagulants
CPT/HCPCS: 36415; 70450; 72125; 73030; 73080; 73620; 73660; 80048; 80053; 80076; 81001; 82550; 82553; 83036; 83735; 83880; 84443; 84484; 85025; 85027; 85610; 93041; 93306; 94760; 96374; 96375; 97116; 97165; 97530; 97535; 99285; G0378; J1938; J2470

== ENCOUNTER → 2024-10-27 | Outpatient (REF) | payer MEDICARE, OTHER ==
[~2024-10-27] MED LIST changes: +MECL-86 PO; +METO1TAB33 PO
== END ==
LOC: M SFHCPLAZ 13:26
PROVIDERS: ATTEND Family Medicine
DX: I65.23 Occlusion and stenosis of bilateral carotid arteries (principal)

== ENCOUNTER → 2025-01-22 | Outpatient (CLI) | payer MEDICARE, OTHER | LOC: M CLY 15:06 | PROVIDERS: ATTEND Family Medicine | DX: Z53.9 Procedure and treatment not carried out, unspecified reason (principal) ==